=== PATIENT | female | born 1940 | race Caucasian/White ===

== ENCOUNTER 2021-08-17 11:03 | Emergency (ER) | payer MEDICARE, OTHER, SELFPAY ==
[2021-08-17] VITALS (24 sets, daily range): BP systolic 128–168; BP diastolic 64–74; PULSE 64–98; RESP 16–28; TEMP 35.9; O2SAT 92–98; BMI 21.7
--- NOTE | 2021-08-17 11:25 | PC.NURSE ---
Pt daughter arrived and reports in March/April pt had frequent falls, in April she had a suspected stroke and MRI showed an area indicating epilepsy. Pt is on but on had RUQ pain with N/V which lead into Wednesday and she missed her Wednesday AM dose. On Wednesday, daughter witnessed pt have an episode where she went momentarily unresponsive then it happened again this morning when they were taking pt out of the bath.
--- NOTE | 2021-08-17 11:46 | ED.GENADULT ---
HPI - General Adult <Majo Sainz MD - Last Filed: 08/18/21 07:06> General Chief complaint: Weakness Stated complaint: Weakness Time Seen by Provider: 08/17/21 11:39 Source: patient and EMS Mode of arrival: EMS Limitations: no limitations History of Present Illness HPI narrative: Woman with a history of stroke and seizure. Apparently her symptoms started in April with increasing falls eventually 1 of the fellows led to a CT scan which led to a diagnosis of a stroke and follow-up suggested that she likely was having seizures from a source close to the area of infarct. She was started on Keppra 250 mg b.i.d. and been doing fairly well. Three days ago she was complaining of some nausea and missed a dose of her Keppra because of that. Her primary care provider called in [facility] that is been helping however on Wednesday her daughter (a retired ER nurse providing full-time care for her mother) describes an episode of ?stiffness, a blank stare and decreased responsiveness? that lasted for only a few moments. Today after getting out of the shower her daughter noticed a similar episode that was much longer in duration with some perioral cyanosis appreciated and a longer postictal period. The daughter notes that her mom has not been eating well for the past 3 days and it is difficult to tell if that is because of nausea or pain. Her mom seems to indicate that she is having some right upper quadrant pain for the last 3 days as well. Other daughter does not note any complaints recently of flank pain, dysuria, frequency, constipation or diarrhea. Her mom is not complaining of headache and main complaint is overall weakness Related Data Home Medications Medication Instructions Recorded Confirmed aspirin 81 mg tablet 81 mg PO DAILY 08/17/21 08/17/21 calcitonin (salmon) 200 1 spray INTRANASAL DAILY 08/17/21 08/17/21 unit/actuation nasal spray conjugated estrogens 0.625 mg 0.625 mg PO DAILY 08/17/21 08/17/21 tablet (Premarin) folic acid 1 mg tablet 1 mg PO QPM 08/17/21 08/17/21 levetiracetam 250 mg tablet 250 mg PO BID 08/17/21 08/17/21 lisinopril 2.5 mg tablet 2.5 mg PO QPM 08/17/21 08/17/21 verapamil 240 mg tablet,extended 240 mg PO DAILY 08/17/21 08/17/21 release Allergies Allergy/AdvReac Type Severity Reaction Status Date / Time Penicillins Allergy Verified 08/17/21 11:22 Review of Systems <Majo Sainz MD - Last Filed: 08/18/21 07:06> Review of Systems Narrative: Remainder of complete review of systems is otherwise unremarkable except for that included in the HPI. Patient History <Majo Sainz MD - Last Filed: 08/18/21 07:06> Medical History (Updated 08/17/21 @ 13:53 by Majo Sainz MD) CVA (cerebral vascular accident) 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 (CVA) Social History Smoking Status: Never smoker Smoking Status: Never smoker Substance Use Type: does not use Exam <Majo Sainz MD - Last Filed: 08/18/21 07:06> Narrative Exam Narrative: General: Frail appearing but in no acute distress. To minimal participation in history taking HEENT: Dry mucous membranes, normal sclera with reactive pupils, Neck: No JVD, supple Respiratory: Lungs are clear to auscultation, no wheezing no rales no rhonchi. Full and symmetrical air movement Cardiac: Regular rate and rhythm no murmurs no bruits Abdomen: Soft, diffuse tenderness including right upper quadrant right flank left lower quadrant. No rebound or guarding. No suprapubic tenderness Skin: Warm and dry, no rashes Neurologic: Globally weak but Grossly neurologically intact with no obvious asymmetries or abnormalities Extremities: No trauma, no lower extremity edema, well perfused Psych: Cooperative, rather flat affect, mild dementia Initial Vital Signs Initial Vital Signs: Vital Signs Temperature 96.6 F L 08/17/21 11:17 Pulse Rate 81 08/17/21 11:17 Respiratory Rate 18 08/17/21 11:17 Blood Pressure 134/72 08/17/21 11:17 Pulse Oximetry 96 08/17/21 11:17 Course <Majo Sainz MD - Last Filed: 08/18/21 07:06> Orders Ordered: Discontinued Medications Levetiracetam 1,000 mg/ Sodium (Chloride) 110 mls @ 440 mls/hr IV NOW ONE Stop: 08/17/21 12:32 Last Infusion: 08/17/21 13:33 Dose: 0 mls/hr Documented by: Admin: 08/17/21 13:16 Dose: 440 mls/hr Documented by: ATAYLOR Sodium Chloride (Normal Saline 0.9%) 1,000 mls @ 1,000 mls/hr IV BOLUS ONE Stop: 08/17/21 13:36 Last Infusion: 08/17/21 15:22 Dose: 0 mls/hr Documented by: Admin: 08/17/21 13:17 Dose: 1,000 mls/hr Documented by: ATAYLOR Piperacillin Sod/Tazobactam (Sod 4.5 gm/ Sodium Chloride) 100 mls @ 200 mls/hr IV NOW ONE Stop: 08/17/21 14:14 Last Infusion: 08/17/21 16:00 Dose: 0 mls/hr Documented by: Admin: 08/17/21 15:22 Dose: 200 mls/hr Documented by: ATAYLOR Sodium Chloride (Normal Saline 0.9%) 1,000 mls @ 150 mls/hr IV CONT RAYMUNDO Last Infusion: 08/17/21 21:43 Dose: 0 mls/hr Documented by: Admin: 08/17/21 15:22 Dose: 150 mls/hr Documented by: ATAYLOR Piperacillin Sod/Tazobactam (Sod 3.375 gm/ Sodium Chloride) 100 mls @ 25 mls/hr IV [facility] Ondansetron HCl (Ondansetron 4 Mg/2 Ml Inj) 4 mg IV NOW ONE Stop: 08/17/21 12:38 Last Admin: 08/17/21 13:18 Dose: 4 mg Documented by: ATAYLOR Vital Signs Vital signs: Vital Signs - 8 hr 08/17/21 20:00 08/17/21 20:30 08/17/21 21:00 Pulse Rate 79 69 80 Respiratory Rate 24 17 22 Blood Pressure 150/69 H 156/72 H Pulse Oximetry 96 96 92 08/17/21 21:30 Pulse Rate 73 Respiratory Rate 16 Blood Pressure 168/74 H Pulse Oximetry 95 Medical Decision Making <Majo Sainz MD - Last Filed: 08/18/21 07:06> Lab Data Result diagrams: 08/17/21 11:20 08/17/21 11:20 Labs: Lab Results 08/17/21 08/17/21 08/17/21 Range/Units 11:20 11:20 11:51 WBC 15.4 H (4.5-11.0) X10^3/uL RBC 4.80 (4.0-5.2) X10^6/uL Hgb 14.1 (12.0-16.0) g/dL Hct 42.1 (36-46) % MCV 87.8 (80-100) fL MCH 29.4 (26-34) PG MCHC 33.5 (30-36) % RDW 15.1 H (11.6-14.8) % Plt Count 287 (150-400) X10^3/uL Neut % (Auto) 84.9 H (50-75) % Lymph % (Auto) 7.7 L (25-40) % Stafford % (Auto) 6.2 (3-14) % Eos % (Auto) 0.7 L (2-4) % Baso % (Auto) 0.5 (0-2) % Neut # (Auto) 88531 H (9922-2041) /uL Lymph # (Auto) 1200 (1553-1044) /uL Stafford # (Auto) 1000 H (0-900) /uL Eos # (Auto) 100 (0-450) /uL Baso # (Auto) 100 (0-100) /uL Sodium 136 L (137-145) mmol/L Potassium 3.8 (3.4-5.1) mmol/L Chloride 99 (98-107) mmol/L Carbon Dioxide 28 (22-32) mmol/L BUN 19 H (7-17) mg/dL Creatinine 1.22 H (0.52-1.04) mg/dL Estimated GFR 42.4 L (>60) mL/min BUN/Creatinine Ratio 15.6 (6-22) Glucose 117 H (80-110) mg/dL Calcium 9.6 (8.4-10.2) mg/dL Magnesium 1.8 (1.6-2.3) mg/dL Total Bilirubin 1.9 H (0.2-1.3) mg/dL AST 41 H (14-36) IU/L ALT 32 (<35) IU/L Alkaline Phosphatase 109 (38-126) U/L Troponin I < 0.012 (0.01-0.034) ng/mL Total Protein 7.6 (6.3-8.2) g/dL Albumin 4.0 (3.5-5.0) g/dL Globulin 3.6 (1.7-4.1) g/dL Albumin/Globulin Ratio 1.1 (1.0-2.8) Lipase 23 (23-300) U/L Urine Color Urine Appearance Urine pH (4.5-8.0) Ur Specific [place] (1.000-1.035) Urine Protein (Negative) Urine Glucose (UA) (Negative) g/dL Urine Ketones (NEGATIVE) Urine Occult Blood (Negative) Urine Nitrate (Negative) Urine Bilirubin (NEGATIVE) Urine Urobilinogen (0.2) E.U./dL Ur Leukocyte Esterase (NEGATIVE) Urine RBC (0-5/HPF) Urine WBC (0-5/HPF) Ur Squamous Epith Cells (0-5/HPF) Urine Bacteria (None) Hyaline Casts (None) Ur Culture Indicated? SARS-CoV-2 (PCR) Negative (Negative) 08/17/21 Range/Units 14:07 WBC (4.5-11.0) X10^3/uL RBC (4.0-5.2) X10^6/uL Hgb (12.0-16.0) g/dL Hct (36-46) % MCV (80-100) fL MCH (26-34) PG MCHC (30-36) % RDW (11.6-14.8) % Plt Count (150-400) X10^3/uL Neut % (Auto) (50-75) % Lymph % (Auto) (25-40) % Stafford % (Auto) (3-14) % Eos % (Auto) (2-4) % Baso % (Auto) (0-2) % Neut # (Auto) (0511-1080) /uL Lymph # (Auto) (8410-8513) /uL Stafford # (Auto) (0-900) /uL Eos # (Auto) (0-450) /uL Baso # (Auto) (0-100) /uL Sodium (137-145) mmol/L Potassium (3.4-5.1) mmol/L Chloride (98-107) mmol/L Carbon Dioxide (22-32) mmol/L BUN (7-17) mg/dL Creatinine (0.52-1.04) mg/dL Estimated GFR (>60) mL/min BUN/Creatinine Ratio (6-22) Glucose (80-110) mg/dL Calcium (8.4-10.2) mg/dL Magnesium (1.6-2.3) mg/dL Total Bilirubin (0.2-1.3) mg/dL AST (14-36) IU/L ALT (<35) IU/L Alkaline Phosphatase (38-126) U/L Troponin I (0.01-0.034) ng/mL Total Protein (6.3-8.2) g/dL Albumin (3.5-5.0) g/dL Globulin (1.7-4.1) g/dL Albumin/Globulin Ratio (1.0-2.8) Lipase (23-300) U/L Urine Color ... Urine Appearance Clear Urine pH 5.0 (4.5-8.0) Ur Specific [place] 1.010 (1.000-1.035) Urine Protein 1+ H (Negative) Urine Glucose (UA) Trace H (Negative) g/dL Urine Ketones Trace H (NEGATIVE) Urine Occult Blood Negative (Negative) Urine Nitrate Negative (Negative) Urine Bilirubin Negative (NEGATIVE) Urine Urobilinogen 2.0 H (0.2) E.U./dL Ur Leukocyte Esterase Negative (NEGATIVE) Urine RBC None seen (0-5/HPF) Urine WBC 1-5/hpf (0-5/HPF) Ur Squamous Epith Cells 1-5 /hpf (0-5/HPF) Urine Bacteria Occasional (0-1) (None) Hyaline Casts 1-5/lpf (None) Ur Culture Indicated? Cult not indicated SARS-CoV-2 (PCR) (Negative) Imaging Data Chest x-ray: Radiologist's Impression: FINDINGS:? ? Surgical changes and devices:? None.? ? Lungs and pleura:? Lungs are clear without acute consolidation.? There is mild blunting of the right costophrenic angle suggestive of pleural thickening, versus a small effusion.? No left pleural effusion.? No pneumothorax. ? Mediastinum:? There is convex right paratracheal soft tissue fullness in the superior mediastinum.? Heart size is normal.? ? Bones and chest wall:? No suspicious bony lesions.? Overlying soft tissues appear unremarkable.? ? IMPRESSION:? ? 1. No acute consolidation. ? 2. Mild pleural thickening in the right lateral costophrenic angle versus a small effusion. ? 3. Convex right paratracheal soft tissue fullness in the superior mediastinum.? Although the findings may reflect vascular structures, lymphadenopathy or a mass cannot be excluded.? Further evaluation may be obtained with CT if clinically indicated.? ? ? Dictated by: Joseph Grayson M.D. on 08/17/2021 at 11:27? ?? CT scan - abdomen/pelvis: My Impression: Per daughter: compression fractures are known Radiologist's Impression: FINDINGS:? Image quality:? Excellent.? ? Lung bases:? There is atelectasis and scarring in the lung bases.? ? Heart:? Heart is normal in size.? There is prominent mitral annular calcifications.? Extensive coronary arterial vascular calcification are also noted.? The visualized ascending aorta appears ectatic, measuring up to 3.9 cm.? There is a small hiatal hernia. ? ? ? ABDOMEN: Liver:? Unremarkable.? ? Gallbladder:? There is distention of the gallbladder with mild wall thickening and mild pericholecystic fat stranding.? There is suggestion a small stone in the region of the gallbladder neck measuring approximately 0.9 cm. Biliary ducts:? There is mild biliary ductal dilatation, with the common bile duct measuring up to 1.1 cm.? No calcified common duct stones identified.? No discrete ampullary or pancreatic mass. Pancreas:? There is mild atrophy of the pancreas.? No pancreatic duct dilatation.? ? Spleen:? Unremarkable.? ? Adrenal Glands:? Unremarkable.? ? Kidneys and Ureters:? Kidneys demonstrate no hydronephrosis.? A small oval hypodensity is demonstrated in the left kidney which is too small to characterize but likely represents a cyst. ? Stomach and Bowel:? Stomach, small bowel loops, and colon are normal in caliber and wall thickness. Peritoneum:? No abnormal intraperitoneal fluid.? No free air.? ? Ventral Wall: ? No hernia.? Abdominal Nodes:? No retroperitoneal or mesenteric adenopathy by size criteria.? Vessels:? Aorta and inferior vena cava are normal in size.? ? PELVIS: Pelvic Organs:? The uterus is surgically absent. Bladder:? Unremarkable.? ? Pelvic Nodes: No enlarged lymph nodes.? Miscellaneous: No inguinal hernias are seen. ? ? ? Bones:? There is a moderate superior endplate compression fracture of the L1 vertebral body of indeterminate acuity.? There is loss of height of up to approximately 50%.? There is a small posteriorly displaced fragment along the superior endplate, measuring up to 0.7 cm.? There is associated moderate bony spinal canal narrowing.? A mild compression deformity is also demonstrated along the superior endplate of L2 with up to 30% loss of height.? No retropulsed bony fragments.? There are disc bulges throughout the lumbar spine.? Ligament flavum hypertrophy and calcification are also demonstrated at L2-L3 and L3-L4.? Findings contribute to severe spinal canal narrowing at L3-L4 and moderate narrowing at L2-L3. ? ? IMPRESSION:? ? 1.? Distention of the gallbladder with mild wall thickening, pericholecystic fat stranding, and suspected gallstones in the gallbladder neck.? Findings likely reflect acute cholecystitis and correlation is recommended clinically. ? 2. Mild biliary ductal dilatation without a calcified common duct stone or obstructing mass visualized.? Recommend correlation with laboratory values and if indicated initial further evaluation may be obtained with ultrasound. ? 3. Compression deformities of the L1 and L2 vertebral bodies of indeterminate acuity with up to 50% loss of height at L1.? There is a small posterior displaced fragment along the superior endplate of L1 with associated moderate spinal canal narrowing. ? 4. Multilevel degenerative changes within the lumbar spine with severe spinal canal narrowing at L3-L4.? ? ? Dictated by: Joseph Grayson M.D. on 08/17/2021 at 12:19? ?? CT scan - head: Radiologist's Impression: FINDINGS:? Image quality:? Excellent.? ? CSF spaces:? Basal cisterns are patent.? No extra-axial fluid collections.? There is moderate cerebral volume loss, with resultant ventricular and sulcal prominence.? ? Brain:? No intracranial hemorrhage, mass, or mass effect.? Small areas of cortical encephalomalacia are demonstrated within the left frontal and parietal lobes consistent with sequelae of prior infarcts.? There are subcortical, periventricular and deep white matter hypodensities consistent with moderate to severe chronic small vessel ischemic changes.? A small focal hypodensity within the right thalamus is consistent with sequelae of a prior small lacunar infarct indeterminate acuity.? There is intracranial internal carotid artery atherosclerosis.? ? Skull and face:? Calvarium and visualized facial bones appear intact, without suspicious lesions.? ? Sinuses:? Visualized sinuses and mastoids are clear.? ? IMPRESSION:? ? 1. No acute intracranial abnormality. ? 2. Small areas of cortical encephalomalacia in the left frontal and parietal lobes consistent with sequelae of prior infarcts. ? 3. Moderate to severe chronic white matter small vessel ischemic changes and moderate cerebral volume loss.? ? ? Dictated by: Joseph Grayson M.D. on 08/17/2021 at 12:16? ?? ECG Data Interpretation: Sinus rhythm at a rate of 66 Left axis deviation No acute ischemic changes MDM Narrative Medical decision making narrative: 81-year-old woman with mild dementia post stroke with seizures as a consequence of her stroke presents with 3 days nausea vomiting decreased eating and her daughter is concerned that she is having an increase in seizures. She has only missed 1 total dose of her Keppra. Patient is DNR/DNI however would like appropriate intervention up to that point. No evidence of recurrent stroke. It does look like she has acute cholecystitis with gallstone in the bladder neck. Mild biliary ductal dilatation without calcified common duct stone or obstructing mass visualized. Will review care with surgeon. 2pm discussed with Dr. Blair, general surgeon. Given her advanced age, recent stroke, seizures, her operative risk is significant. She would likely be better served with percutaneous cholecystostomy tube and medical management of her disease. Will begin looking for hospital bed availability at a facility that has interventional radiology available. In the meantime will begin Zosyn as well as gentle fluid rehydration treating her pain and her nausea. 3pm currently on waiting lists with [facility], [facility], [place], [facility] and [place]. [facility] is not currently excepting patient's from non critical access hospitals. We currently have another patient on a waiting list for the [facility] with earliest possible bed placement being tomorrow. [facility] is closed to admissions with the exception of a STEMI or strokes. 4:30 Reviewed with . Will page providers, no immediate beds available. [address], [facility]. Will accept at [facility] in [place], expected transfer this evening. Will update her daughter when bed is confirmed. Discharge Plan Departure Patient Disposition: [facility] Clinical Impression: Dehydration, Cholecystitis Prescriptions: No Action verapamil 240 mg tablet extended release 240 mg PO DAILY 0RF Adult Aspirin 81 mg Tablet 81 mg PO DAILY 0RF levetiracetam 250 mg tablet 250 mg PO BID 0RF calcitonin (salmon) 200 unit/actuation spray,non-aerosol 1 spray intranasal DAILY 0RF Premarin 0.625 mg Tablet 0.625 mg PO DAILY 0RF folic acid 1 mg tablet 1 mg PO QPM 0RF lisinopril 2.5 mg tablet 2.5 mg PO QPM 0RF Rx Instructions: sliding dose: less than 100 = 0; 100-120 = 2.5mg, greater than 120 =50mg Referrals: Nasreen Najera DO [Primary Care Provider] -
--- NOTE | 2021-08-17 11:47 | DI.RAD.S_ITS ---
PROCEDURE: XR CHEST 1V INDICATIONS: weakness TECHNIQUE: One view of the chest was acquired. COMPARISON: None. FINDINGS: Surgical changes and devices: None. Lungs and pleura: Lungs are clear without acute consolidation. There is mild blunting of the right costophrenic angle suggestive of pleural thickening, versus a small effusion. No left pleural effusion. No pneumothorax. Mediastinum: There is convex right paratracheal soft tissue fullness in the superior mediastinum. Heart size is normal. Bones and chest wall: No suspicious bony lesions. Overlying soft tissues appear unremarkable. IMPRESSION: 1. No acute consolidation. 2. Mild pleural thickening in the right lateral costophrenic angle versus a small effusion. 3. Convex right paratracheal soft tissue fullness in the superior mediastinum. Although the findings may reflect vascular structures, lymphadenopathy or a mass cannot be excluded. Further evaluation may be obtained with CT if clinically indicated. Dictated by: Joseph Grayson M.D. on 08/17/2021 at 11:27 Approved by: Joseph Grayson M.D. on 08/17/2021 at 11:33
[2021-08-17 12:00] LABS: Alanine Aminotransferase 32 IU/L (<35); Albumin Globulin Ratio 1.1 (1.0-2.8); Alkaline Phosphatase 109 U/L (38-126); Aspartate Aminotransferase 41 IU/L (14-36); BUN Creatinine Ratio 15.6 (6-22); Bilirubin Total 1.9 mg/dL (0.2-1.3); Blood Urea Nitrogen 19 mg/dL (7-17); Calcium 9.6 mg/dL (8.4-10.2); Carbon Dioxide 28 mmol/L (22-32); Chloride 99 mmol/L (98-107); Estimated Glomerular Filt Rate 42.4 mL/min (>60); Globulin 3.6 g/dL (1.7-4.1); Glucose 117 mg/dL (80-110); HEMOLYSIS 77 (0-50); Lipase 23 U/L (23-300); Magnesium 1.8 mg/dL (1.6-2.3); Potassium 3.8 mmol/L (3.4-5.1); Sodium 136 mmol/L (137-145); Total Protein 7.6 g/dL (6.3-8.2)
[2021-08-17 12:01] LABS: Add Manual Diff / Slide Review NO; Basophils Absolute Auto 100 /uL (0-100); Basophils Percent Auto 0.5 % (0-2); Eosinophils Absolute Auto 100 /uL (0-450); Eosinophils Percent Auto 0.7 % (2-4); Hematocrit 42.1 % (36-46); Hemoglobin 14.1 g/dL (12.0-16.0); Lymphocytes Absolute Auto 1200 /uL (1100-4500); Lymphocytes Percent Auto 7.7 % (25-40); Mean Corpuscular HGB Conc 33.5 % (30-36); Mean Corpuscular Hemoglobin 29.4 PG (26-34); Mean Corpuscular Volume 87.8 fL (80-100); Monocytes Absolute Auto 1000 /uL (0-900); Monocytes Percent Auto 6.2 % (3-14); Neutrophils Absolute Auto 13100 /uL (1500-7000); Neutrophils Percent Auto 84.9 % (50-75); Platelet Count 287 X10^3/uL (150-400); Red Cell Distribution Width 15.1 % (11.6-14.8); White Blood Cell Count 15.4 X10^3/uL (4.5-11.0)
[2021-08-17 12:11] LABS: Troponin I < 0.012 ng/mL (0.01-0.034)
[2021-08-17 12:18] LABS: COVID19 -Nasal RAPID Negative (Negative)
--- NOTE | 2021-08-17 12:31 | DI.CT.S_ITS ---
PROCEDURE: CT HEAD/BRAIN WO CON INDICATIONS: increased seizures, h/o CVA with scarring as site of seizure TECHNIQUE: Noncontrast 4.5 mm thick angled axial sections acquired from the foramen magnum to the vertex, with coronal and sagittal reformats. For radiation dose reduction, the following was used: automated exposure control, adjustment of mA and/or kV according to patient size. COMPARISON: None. FINDINGS: Image quality: Excellent. CSF spaces: Basal cisterns are patent. No extra-axial fluid collections. There is moderate cerebral volume loss, with resultant ventricular and sulcal prominence. Brain: No intracranial hemorrhage, mass, or mass effect. Small areas of cortical encephalomalacia are demonstrated within the left frontal and parietal lobes consistent with sequelae of prior infarcts. There are subcortical, periventricular and deep white matter hypodensities consistent with moderate to severe chronic small vessel ischemic changes. A small focal hypodensity within the right thalamus is consistent with sequelae of a prior small lacunar infarct indeterminate acuity. There is intracranial internal carotid artery atherosclerosis. Skull and face: Calvarium and visualized facial bones appear intact, without suspicious lesions. Sinuses: Visualized sinuses and mastoids are clear. IMPRESSION: 1. No acute intracranial abnormality. 2. Small areas of cortical encephalomalacia in the left frontal and parietal lobes consistent with sequelae of prior infarcts. 3. Moderate to severe chronic white matter small vessel ischemic changes and moderate cerebral volume loss. Dictated by: Joseph Grayson M.D. on 08/17/2021 at 12:16 Approved by: Joseph Grayson M.D. on 08/17/2021 at 12:19
--- NOTE | 2021-08-17 12:31 | DI.CT.S_ITS ---
PROCEDURE: CT ABDOMEN PELVIS W CON INDICATIONS: diffuse abdominal pain, weakness, leukocytosis TECHNIQUE: After the administration of oral and IV contrast, axial sections were acquired from the lung bases to the pubic symphysis. Coronal and sagittal reformats were performed. For radiation dose reduction, the following was used: automated exposure control, adjustment of mA and/or kV according to patient size. COMPARISON: None. FINDINGS: Image quality: Excellent. Lung bases: There is atelectasis and scarring in the lung bases. Heart: Heart is normal in size. There is prominent mitral annular calcifications. Extensive coronary arterial vascular calcification are also noted. The visualized ascending aorta appears ectatic, measuring up to 3.9 cm. There is a small hiatal hernia. ABDOMEN: Liver: Unremarkable. Gallbladder: There is distention of the gallbladder with mild wall thickening and mild pericholecystic fat stranding. There is suggestion a small stone in the region of the gallbladder neck measuring approximately 0.9 cm. Biliary ducts: There is mild biliary ductal dilatation, with the common bile duct measuring up to 1.1 cm. No calcified common duct stones identified. No discrete ampullary or pancreatic mass. Pancreas: There is mild atrophy of the pancreas. No pancreatic duct dilatation. Spleen: Unremarkable. Adrenal Glands: Unremarkable. Kidneys and Ureters: Kidneys demonstrate no hydronephrosis. A small oval hypodensity is demonstrated in the left kidney which is too small to characterize but likely represents a cyst. Stomach and Bowel: Stomach, small bowel loops, and colon are normal in caliber and wall thickness. Peritoneum: No abnormal intraperitoneal fluid. No free air. Ventral Wall: No hernia. Abdominal Nodes: No retroperitoneal or mesenteric adenopathy by size criteria. Vessels: Aorta and inferior vena cava are normal in size. PELVIS: Pelvic Organs: The uterus is surgically absent. Bladder: Unremarkable. Pelvic Nodes: No enlarged lymph nodes. Miscellaneous: No inguinal hernias are seen. Bones: There is a moderate superior endplate compression fracture of the L1 vertebral body of indeterminate acuity. There is loss of height of up to approximately 50%. There is a small posteriorly displaced fragment along the superior endplate, measuring up to 0.7 cm. There is associated moderate bony spinal canal narrowing. A mild compression deformity is also demonstrated along the superior endplate of L2 with up to 30% loss of height. No retropulsed bony fragments. There are disc bulges throughout the lumbar spine. Ligament flavum hypertrophy and calcification are also demonstrated at L2-L3 and L3-L4. Findings contribute to severe spinal canal narrowing at L3-L4 and moderate narrowing at L2-L3. IMPRESSION: 1. Distention of the gallbladder with mild wall thickening, pericholecystic fat stranding, and suspected gallstones in the gallbladder neck. Findings likely reflect acute cholecystitis and correlation is recommended clinically. 2. Mild biliary ductal dilatation without a calcified common duct stone or obstructing mass visualized. Recommend correlation with laboratory values and if indicated initial further evaluation may be obtained with ultrasound. 3. Compression deformities of the L1 and L2 vertebral bodies of indeterminate acuity with up to 50% loss of height at L1. There is a small posterior displaced fragment along the superior endplate of L1 with associated moderate spinal canal narrowing. 4. Multilevel degenerative changes within the lumbar spine with severe spinal canal narrowing at L3-L4. Dictated by: Joseph Grayson M.D. on 08/17/2021 at 12:19 Approved by: Joseph Grayson M.D. on 08/17/2021 at 12:28
[2021-08-17] MEDS: levETIRAcetam 1,000 MG in SODIUM CHLORIDE 0.9% 100 ML 440 ML IV (13:16)
[2021-08-17] MEDS: SODIUM CHLORIDE 0.9% 1,000 ML 1000 ML IV (13:17)
[2021-08-17] MEDS: ONDANSETRON 4 MG/2 ML INJ IV (13:18)
[2021-08-17 14:21] LABS: Appearance Urine UA CLEAR; Bilirubin Urine UA NEGATIVE (NEGATIVE); Glucose Urine UA TRACE g/dL (Negative); Ketones Urine UA TRACE (NEGATIVE); Leukocyte Esterase Urine UA NEGATIVE (NEGATIVE); Nitrite Urine UA NEGATIVE (Negative); Occult Blood Urine UA NEGATIVE (Negative); Protein Urine UA 1+ (Negative)
[2021-08-17 14:35] LABS: RBC Urine None Seen (0-5/HPF); Squamous Epithelial Cell Urine 1-5 /HPF (0-5/HPF); WBC Urine 1-5/HPF (0-5/HPF)
[2021-08-17 14:36] LABS: Bacteria Urine Occasional (0-1); Culture Indicated Urine Cult Not Indicated; Hyaline Casts Urine 1-5/LPF
[2021-08-17] MEDS: PIPERACILLIN/TAZO 4.5 GM in SODIUM CHLORIDE 0.9% 100 ML 200 ML IV (15:22)
[2021-08-17] MEDS: SODIUM CHLORIDE 0.9% 1,000 ML 150 ML IV (15:22)
--- NOTE | 2021-08-17 20:51 | PC.NURSE ---
Called daughter, Kayla, and updated her on plan for transfer.
[2021-08-20 23:54] LABS: Levetiracetam Keppra 14.5 ug/mL (10.0-40.0)
== END 2021-08-17 21:50 | disposition short-term general hospital (02) ==
PROVIDERS: Emergency Provider Emergency Medicine; PCP Internal Medicine
DX: K81.9 Cholecystitis, unspecified (principal); E86.0 Dehydration; I69.398 Other sequelae of cerebral infarction; R56.9 Unspecified convulsions; R03.0 Elevated blood-pressure reading, without diagnosis of hypertension; Z20.822 Contact with and (suspected) exposure to COVID-19
CPT/HCPCS: 36415; 51701; 70450; 71045; 74177; 80053; 80177; 81001; 83690; 83735; 84484; 85025; 87635; 93005; 93010; 96361; 96365; 96367; 96375; 99284; C9803; J1953; J2405; J2543; Q9967

== ENCOUNTER 2021-10-26 10:00 | Observation (INO) | payer MEDICARE, OTHER, SELFPAY ==
[2021-10-26] VITALS (18 sets, daily range): BP systolic 142–184; BP diastolic 83–112; PULSE 78–102; RESP 11–27; TEMP 36.3–37.7; O2SAT 88–100; BMI 22.7; BMI 22.6
--- NOTE | 2021-10-26 11:18 | ED_ITS ---
HPI - Abdominal Pain General Chief Complaint: Abdominal Pain Stated Complaint: Issues with galbladder Time Seen by Provider: 10/26/21 11:18 Source: family Mode of arrival: Wheelchair History of Present Illness HPI narrative: Patient is a 81-year-old female history of stroke, seizures she has known gallbladder issues. She was seen evaluated here 08/17/2021 found to have cholecystitis but was having problems with seizure at that time she was transferred to [facility], where she was managed medically. Daughter states that she needs to have a cholecystectomy. She had any ERCP at [facility] on 09/19/2021 were 3 large stones were extracted from the common bile. Daughter states that there is a cycle with the gallbladder stating that she has cholelithiasis she has had acute cholecystitis it makes her extremely nauseous cause her to vomit due to the ongoing nausea she is unable to eat occasionally unable to take her seizure medications. She has actually had significant decreased oral intake over the past few weeks hyper venting surgeons from removing her gallbladder. There was also concern how she would do under anesthesia however daughter states during the ERCP she was under anesthesia and did well. Daughter is concerned that the gallbladder is not removed she will continue to lose weight and possibly have seizures because she is not able to keep or take down her antiseizure medication. This morning patient got out of bed earlier than normal and daughter found vomit all over her room at which point she brought her to the emergency department for evaluation. Patient was with daughter who is a retired ER nurse and is her primary caregiver Related Data Home Medications Medication Instructions Recorded Confirmed aspirin 81 mg tablet 81 mg PO DAILY 08/17/21 10/26/21 calcitonin (salmon) 200 1 spray INTRANASAL DAILY 08/17/21 10/26/21 unit/actuation nasal spray levetiracetam 250 mg tablet 500 mg PO BID 08/17/21 10/26/21 lisinopril 2.5 mg tablet 2.5 mg PO QPM 08/17/21 10/26/21 verapamil 240 mg tablet,extended 240 mg PO DAILY 08/17/21 10/26/21 release albuterol sulfate 90 mcg/actuation 2 puff INHALATION DAILY 10/26/21 10/26/21 aerosol inhaler dronabinol 2.5 mg capsule 2.5 mg PO BID 10/26/21 10/26/21 lidocaine 5 % topical patch 1 patch TRANSDERMAL BID PRN 10/26/21 10/26/21 ondansetron 4 mg disintegrating 4 mg TRANSLINGUAL Q8H PRN 10/26/21 10/26/21 tablet Allergies Allergy/AdvReac Type Severity Reaction Status Date / Time Penicillins Allergy Verified 08/17/21 11:22 Review of Systems Constitutional Constitutional: Reports poor appetite and Reports weakness Gastrointestinal Gastrointestinal: Reports as per HPI, Reports abdominal pain, Reports nausea and Reports vomiting Neurologic Neurologic: Reports weakness Patient History Medical History (Updated 10/26/21 @ 16:12 by Arian Aggarwal DO) Asthma CVA (cerebral vascular accident) Essential hypertension Paroxysmal atrial fibrillation 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 (CVA) Vascular dementia Surgical History (Updated 10/26/21 @ 16:11 by Arian Aggarwal DO) H/O: hysterectomy History of bilateral knee replacement History of ERCP Social History household members: children Smoking Status: Never smoker alcohol intake: never Smoking Status: Never smoker Substance Use Type: does not use Exam Initial Vital Signs Initial Vital Signs: Vital Signs Temperature 97.8 F 10/26/21 10:15 Pulse Rate 83 10/26/21 10:15 Respiratory Rate 14 10/26/21 10:15 Blood Pressure 142/95 H 10/26/21 10:15 Pulse Oximetry 91 10/26/21 10:15 GENERAL: Very weak thin elderly 81-year-old female HEENT: Head atraumatic,EOMI, pupils reactive, face symmetric, dry mucous membranes CARDIOVASCULAR: Regular rate and rhythm without murmurs, rubs or gallops. RESPIRATORY: Breath sounds equal bilaterally, no wheezes rales or rhonchi. ABDOMEN: Soft, nontender. Normoactive bowel sounds all 4 quadrants. No guarding or rebound. EXTREMITIES: Normal range of motion, no clubbing or edema. Neurovascularly intact NEUROLOGICAL: Alert moving all extremities, unintelligible words-baseline per daughter SKIN: Warm, dry, no laceration, no petechiae, no rashes or lesions. Course Orders Ordered: ED Orders 10/26/21 10:32 EKG-12 Lead Stat 10/26/21 11:20 Complete Blood Count AUTO DIFF Stat Comprehensive Metabolic Panel Stat Levetiracetam Keppra Stat Lipase Stat 10/26/21 11:22 US abdomen limited Stat 10/26/21 12:50 Urine Microscopic Stat 10/26/21 13:59 COVID19 -Nasal swab/Pre-Proc Stat Acetaminophen (Acetaminophen 325 Mg Tablet) 650 mg PO Q6HR PRN PRN Reason: Fever/Mild Pain (1-3) Sodium Chloride (Normal Saline 0.9%) 1,000 mls @ 75 mls/hr IV CONT RAYMUNDO Levetiracetam 500 mg/ Sodium (Chloride) 105 mls @ 420 mls/hr IV Q12H RAYMUNDO Piperacillin Sod/Tazobactam (Sod 3.375 gm/ Sodium Chloride) 100 mls @ 25 mls/hr IV Q8H RAYMUNDO Morphine Sulfate (Morphine 2 Mg/Ml Inj) 2 mg IV Q4HR PRN PRN Reason: Pain, Moderate (4-6) Naloxone HCl (Naloxone 0.4 Mg/Ml Vial) 0.2 mg IV Q2MIN PRN PRN Reason: Opiate Reversal Ondansetron HCl (Ondansetron 4 Mg/2 Ml Inj) 4 mg IV Q4HR PRN PRN Reason: Nausea And Vomiting Verapamil HCl (Verapamil Sr 120 Mg Tablet) 240 mg PO DAILY RAYMUNDO Discontinued Medications Sodium Chloride (Normal Saline 0.9%) 1,000 mls @ 1,000 mls/hr IV BOLUS ONE Stop: 10/26/21 12:23 Last Infusion: 10/26/21 14:49 Dose: 0 mls/hr Documented by: Admin: 10/26/21 11:52 Dose: 1,000 mls/hr Documented by: SHABBIR Levetiracetam 500 mg/ Sodium (Chloride) 105 mls @ 420 mls/hr IV NOW ONE Stop: 10/26/21 13:11 Last Infusion: 10/26/21 14:50 Dose: 0 mls/hr Documented by: Admin: 10/26/21 13:34 Dose: 420 mls/hr Documented by: PORSCHE Morphine Sulfate (Morphine 2 Mg/Ml Inj) 2 mg IV NOW ONE Stop: 10/26/21 11:27 Last Admin: 10/26/21 11:52 Dose: 2 mg Documented by: SHABBIR Ondansetron HCl (Ondansetron 4 Mg/2 Ml Inj) 4 mg IV NOW ONE Stop: 10/26/21 11:27 Last Admin: 10/26/21 11:52 Dose: 4 mg Documented by: SHABBIR Vital Signs Vital signs: Vital Signs - 8 hr 10/26/21 10:15 10/26/21 10:32 10/26/21 11:00 Temperature 97.8 F Pulse Rate 83 80 92 H Respiratory Rate 14 25 H 16 Blood Pressure 142/95 H 157/94 H Pulse Oximetry 91 92 92 10/26/21 11:30 10/26/21 11:31 10/26/21 12:00 Temperature Pulse Rate 78 80 90 Respiratory Rate 22 23 22 Blood Pressure 184/86 H 170/90 H Pulse Oximetry 92 92 91 10/26/21 12:30 10/26/21 13:00 10/26/21 13:30 Temperature Pulse Rate 89 92 H 84 Respiratory Rate 19 20 21 Blood Pressure 177/86 H Pulse Oximetry 88 L 94 94 10/26/21 14:00 Temperature Pulse Rate 84 Respiratory Rate 27 H Blood Pressure Pulse Oximetry 93 MDM - Abdominal Pain Lab Data Result diagrams: 10/26/21 11:20 10/26/21 11:20 Labs: Lab Results 10/26/21 10/26/21 10/26/21 Range/Units 11:20 11:20 12:50 WBC 12.8 H (4.5-11.0) X10^3/uL RBC 4.88 (4.0-5.2) X10^6/uL Hgb 14.4 (12.0-16.0) g/dL Hct 44.3 (36-46) % MCV 90.7 (80-100) fL MCH 29.6 (26-34) PG MCHC 32.6 (30-36) % RDW 13.8 (11.6-14.8) % Plt Count 241 (150-400) X10^3/uL Neut % (Auto) 85.9 H (50-75) % Lymph % (Auto) 7.8 L (25-40) % [place] % (Auto) 5.9 (3-14) % Eos % (Auto) 0.2 L (2-4) % Baso % (Auto) 0.2 (0-2) % Neut # (Auto) 19502 H (2392-0936) /uL Lymph # (Auto) 1000 L (3067-2353) /uL [place] # (Auto) 700 (0-900) /uL Eos # (Auto) 0 (0-450) /uL Baso # (Auto) 0 (0-100) /uL Sodium 140 (137-145) mmol/L Potassium 3.7 (3.4-5.1) mmol/L Chloride 105 (98-107) mmol/L Carbon Dioxide 30 (22-32) mmol/L BUN 23 H (7-17) mg/dL Creatinine 1.07 H (0.52-1.04) mg/dL Estimated GFR 49.3 L (>60) mL/min BUN/Creatinine Ratio 21.5 (6-22) Glucose 146 H (80-110) mg/dL Calcium 10.1 (8.4-10.2) mg/dL Total Bilirubin 0.7 (0.2-1.3) mg/dL AST 35 (14-36) IU/L ALT 18 (<35) IU/L Alkaline Phosphatase 135 H (38-126) U/L Total Protein 7.2 (6.3-8.2) g/dL Albumin 4.1 (3.5-5.0) g/dL Globulin 3.1 (1.7-4.1) g/dL Albumin/Globulin Ratio 1.3 (1.0-2.8) Lipase 44 (23-300) U/L Urine RBC None seen (0-5/HPF) Urine WBC 1-5/hpf (0-5/HPF) Ur Squamous Epith Cells 5-10 /hpf H (0-5/HPF) Triple Phos Crystals Occasional Amorphous Sediment 3+ Urine Bacteria Few (2-10) H (None) Ur Culture Indicated? Cult not indicated SARS-CoV-2 (PCR) (Negative) 10/26/21 Range/Units 13:59 WBC (4.5-11.0) X10^3/uL RBC (4.0-5.2) X10^6/uL Hgb (12.0-16.0) g/dL Hct (36-46) % MCV (80-100) fL MCH (26-34) PG MCHC (30-36) % RDW (11.6-14.8) % Plt Count (150-400) X10^3/uL Neut % (Auto) (50-75) % Lymph % (Auto) (25-40) % [place] % (Auto) (3-14) % Eos % (Auto) (2-4) % Baso % (Auto) (0-2) % Neut # (Auto) (7348-2949) /uL Lymph # (Auto) (9966-3672) /uL [place] # (Auto) (0-900) /uL Eos # (Auto) (0-450) /uL Baso # (Auto) (0-100) /uL Sodium (137-145) mmol/L Potassium (3.4-5.1) mmol/L Chloride (98-107) mmol/L Carbon Dioxide (22-32) mmol/L BUN (7-17) mg/dL Creatinine (0.52-1.04) mg/dL Estimated GFR (>60) mL/min BUN/Creatinine Ratio (6-22) Glucose (80-110) mg/dL Calcium (8.4-10.2) mg/dL Total Bilirubin (0.2-1.3) mg/dL AST (14-36) IU/L ALT (<35) IU/L Alkaline Phosphatase (38-126) U/L Total Protein (6.3-8.2) g/dL Albumin (3.5-5.0) g/dL Globulin (1.7-4.1) g/dL Albumin/Globulin Ratio (1.0-2.8) Lipase (23-300) U/L Urine RBC (0-5/HPF) Urine WBC (0-5/HPF) Ur Squamous Epith Cells (0-5/HPF) Triple Phos Crystals Amorphous Sediment Urine Bacteria (None) Ur Culture Indicated? SARS-CoV-2 (PCR) Negative (Negative) Point of care testing: Urine Dip Bedside Urine Glucose Negative Bedside Urine Bilirubin - Negative Bedside Urine Ketone - Negative Urine Specific [place] 1.015 Bedside Urine Occult Blood - Negative Bedside Urine pH 8 Bedside Urine Protein +/- 15 Bedside Urine Urobilinogen - Negative Bedside Urine Nitrite - Negative Bedside Urine Leukocytes - Negative Esterase Imaging Data US - abdomen: Radiologist's Impression: PROCEDURE:? US ABDOMEN LIMITED ? INDICATIONS:? RUQ PAIN ? TECHNIQUE:? Real-time scanning was performed of the abdominal and retroperitoneal organs, with image documentation.? ? COMPARISON:? None. ? FINDINGS: ? Liver:? Homogeneous echotexture.? No evidence of focal mass lesion.? No intra hepatic biliary ductal dilatation ? Gallbladder:? Shadowing calculi noted without gallbladder wall thickening or pericholecystic fluid ? Common Bile Duct:? 1.3 mm. ? Pancreas:? Unremarkable as visualized ? IMPRESSION: ? 1. Cholelithiasis without ultrasound evidence acute cholecystitis ? Approved by: Jordon Parry M.D. on 10/26/2021 at 11:44? ECG Data Interpretation: sinus rhythm rate 79 p.r. 6 QRS [address] changes improved from prior EKG 08/17/2021 MDM Narrative Medical decision making narrative: Patient continues to have cholelithiasis causing nausea vomiting a decreased appetite and weight loss. She again had vomiting this morning. Blood work is overall reassuring she is not septic at this time. Ultrasound confirms again cholelithiasis with normal bilirubin and normal common bile duct. Dr. Hurst surgery has been updated patient's symptoms test results agrees for cholecystectomy which can happen tomorrow. Request patient be admitted to medicine. Dr. Aggarwal accepts patient Discharge Plan Departure Patient Disposition: Admitted As Inpatient Clinical Impression: Cholecystitis, acute with cholelithiasis Admit Date/Time: 10/26/21 14:21 Admit Provider: Arian Aggarwal
--- NOTE | 2021-10-26 11:22 | DI.US.S_ITS ---
PROCEDURE: US ABDOMEN LIMITED INDICATIONS: RUQ PAIN TECHNIQUE: Real-time scanning was performed of the abdominal and retroperitoneal organs, with image documentation. COMPARISON: None. FINDINGS: Liver: Homogeneous echotexture. No evidence of focal mass lesion. No intra hepatic biliary ductal dilatation Gallbladder: Shadowing calculi noted without gallbladder wall thickening or pericholecystic fluid Common Bile Duct: 1.3 mm. Pancreas: Unremarkable as visualized IMPRESSION: 1. Cholelithiasis without ultrasound evidence acute cholecystitis Approved by: Jordon Parry M.D. on 10/26/2021 at 11:44
[2021-10-26 11:36] LABS: Add Manual Diff / Slide Review NO; Basophils Absolute Auto 0 /uL (0-100); Basophils Percent Auto 0.2 % (0-2); Eosinophils Absolute Auto 0 /uL (0-450); Eosinophils Percent Auto 0.2 % (2-4); Hematocrit 44.3 % (36-46); Hemoglobin 14.4 g/dL (12.0-16.0); Lymphocytes Absolute Auto 1000 /uL (1100-4500); Lymphocytes Percent Auto 7.8 % (25-40); Mean Corpuscular HGB Conc 32.6 % (30-36); Mean Corpuscular Hemoglobin 29.6 PG (26-34); Mean Corpuscular Volume 90.7 fL (80-100); Monocytes Absolute Auto 700 /uL (0-900); Monocytes Percent Auto 5.9 % (3-14); Neutrophils Absolute Auto 11000 /uL (1500-7000); Neutrophils Percent Auto 85.9 % (50-75); Platelet Count 241 X10^3/uL (150-400); Red Blood Cell Count 4.88 X10^6/uL (4.0-5.2); Red Cell Distribution Width 13.8 % (11.6-14.8); White Blood Cell Count 12.8 X10^3/uL (4.5-11.0)
[2021-10-26 11:43] LABS: Alanine Aminotransferase 18 IU/L (<35); Albumin 4.1 g/dL (3.5-5.0); Albumin Globulin Ratio 1.3 (1.0-2.8); Alkaline Phosphatase 135 U/L (38-126); Aspartate Aminotransferase 35 IU/L (14-36); BUN Creatinine Ratio 21.5 (6-22); Bilirubin Total 0.7 mg/dL (0.2-1.3); Blood Urea Nitrogen 23 mg/dL (7-17); Calcium 10.1 mg/dL (8.4-10.2); Carbon Dioxide 30 mmol/L (22-32); Chloride 105 mmol/L (98-107); Estimated Glomerular Filt Rate 49.3 mL/min (>60); Globulin 3.1 g/dL (1.7-4.1); Glucose 146 mg/dL (80-110); HEMOLYSIS < 15 (0-50); Lipase 44 U/L (23-300); Potassium 3.7 mmol/L (3.4-5.1); Sodium 140 mmol/L (137-145); Total Protein 7.2 g/dL (6.3-8.2)
[2021-10-26] MEDS: ONDANSETRON 4 MG/2 ML INJ IV ×2 (11:52→20:19)
[2021-10-26] MEDS: SODIUM CHLORIDE 0.9% 1,000 ML 1000 ML IV (11:52)
[2021-10-26] MEDS: MORPHINE 2 MG/ML INJ IV ×2 (11:52→20:11)
[2021-10-26 13:07] LABS: Bacteria Urine Few (2-10); Culture Indicated Urine Cult Not Indicated; RBC Urine None Seen (0-5/HPF); Squamous Epithelial Cell Urine 5-10 /HPF (0-5/HPF); Triple Phosphate Crystal Urine Occasional; WBC Urine 1-5/HPF (0-5/HPF)
[2021-10-26 13:08] LABS: Amorphous Sediment Urine 3+
[2021-10-26] MEDS: levETIRAcetam 500 MG in SODIUM CHLORIDE 0.9% 100 ML 420 ML IV ×2 (13:34→21:11)
[2021-10-26 15:05] LABS: COVID19 -Nasal RAPID Negative (Negative)
--- NOTE | 2021-10-26 16:09 | PM.HP.1 ---
History of Present Illness History of Present Illness Date Patient Seen: 10/26/21 Time Patient Seen: 16:10 Chief complaint: Issues with galbladder Narrative: This is an 81-year-old female with the past medical history of atrial fibrillation, prior stroke about 8 months ago with subsequent seizures, vascular dementia, essential hypertension, asthma, and recent history of cholecystitis 3 months ago who presents with 1 day of abdominal pain, nausea, and vomiting. Abdominal pain is epigastric and right upper quadrant, with some radiation into the right neck. It is worse after eating and she develops nausea. She has had nothing to eat today. Months ago the patient presented with similar symptoms and was found to have acute cholecystitis with biliary dilatation. She was transferred to the [facility] where the patient improved on antibiotic therapy and was discharged home before any procedures were performed. Plan was for outpatient ERCP and cholecystectomy. The patient recently had an ERCP it sounds like at [facility] where multiple stones were seen and sludge was removed and she had what sounds like a sphincterotomy. Records are not available for review at this time. The plan was for a surgical resection of her gallbladder after surgery. Early this morning, the patient began to have significant nausea with emesis. She normally has nausea and actually has lost quite a bit of weight due to fear of pain and nausea after eating, but she had not had any recent vomiting until today. The patient has had some memory issues since her stroke, and much of this history is obtained from her daughter who was at bedside. The patient denies any fevers, chills, chest pain, shortness of breath. She reports no lower extremity edema, dysuria, or urinary frequency recently. Does have constipation but no diarrhea. She reports no recent seizure activity. In the emergency room, the patient was mildly hypertensive but the remainder of her vital signs are unremarkable. Laboratory evaluation revealed a mild leukocytosis with WBC 12.8, but the remainder of her CBC was unremarkable. Chemistries showed a creatinine of 1.07 which is somewhat improved from her prior ER visit when she had acute cholecystitis. Further chemistries were unremarkable. Her urinalysis was not indicative of infection and was slightly contaminated. COVID-19 testing is negative. Patient History Medical History (Updated 10/26/21 @ 16:12 by Arian Aggarwal DO) Asthma CVA (cerebral vascular accident) Essential hypertension Paroxysmal atrial fibrillation 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 (CVA) Vascular dementia Surgical History (Updated 10/26/21 @ 16:11 by Arian Aggarwal DO) H/O: hysterectomy History of bilateral knee replacement History of ERCP Family & Social History Family history unavailable: Yes (patient unable to recall family history - dementia) Social History: household members children Prior Living Arrangements House Safety & Behavioral: Feels Safe in Current Yes Environment Been Physically Hurt or No Threatened By a Person Suicidal Ideation Description None Suicide Plan Description No Plan Tobacco & Substance use: Smoking Status Never smoker alcohol intake never Substance Use Type does not use Meds Home Medications and Allergies Home Medications Medication Instructions Recorded Confirmed Type aspirin 81 mg tablet 81 mg PO DAILY 08/17/21 10/26/21 History calcitonin (salmon) 200 1 spray INTRANASAL DAILY 08/17/21 10/26/21 History unit/actuation nasal spray levetiracetam 250 mg tablet 500 mg PO BID 08/17/21 10/26/21 History lisinopril 2.5 mg tablet 2.5 mg PO QPM 08/17/21 10/26/21 History verapamil 240 mg tablet,extended 240 mg PO DAILY 08/17/21 10/26/21 History release albuterol sulfate 90 mcg/actuation 2 puff INHALATION DAILY 10/26/21 10/26/21 History aerosol inhaler dronabinol 2.5 mg capsule 2.5 mg PO BID 10/26/21 10/26/21 History lidocaine 5 % topical patch 1 patch TRANSDERMAL BID PRN 10/26/21 10/26/21 History ondansetron 4 mg disintegrating 4 mg TRANSLINGUAL Q8H PRN 10/26/21 10/26/21 History tablet Allergies Allergy/AdvReac Type Severity Reaction Status Date / Time Penicillins Allergy Verified 08/17/21 11:22 Review of Systems Review of Systems Narrative: All other systems reviewed with the patient and are negative unless otherwise stated. Exam Vital Signs (past 8 hours): - 10/26/21 10:15 10/26/21 10:32 10/26/21 11:00 Temperature 97.8 F Pulse Rate 83 80 92 H Respiratory Rate 14 25 H 16 Blood Pressure 142/95 H 157/94 H Pulse Oximetry 91 92 92 10/26/21 11:30 10/26/21 11:31 10/26/21 12:00 Temperature Pulse Rate 78 80 90 Respiratory Rate 22 23 22 Blood Pressure 184/86 H 170/90 H Pulse Oximetry 92 92 91 10/26/21 12:30 10/26/21 13:00 10/26/21 13:30 Temperature Pulse Rate 89 92 H 84 Respiratory Rate 19 20 21 Blood Pressure 177/86 H Pulse Oximetry 88 L 94 94 10/26/21 14:00 10/26/21 14:53 10/26/21 14:54 Temperature Pulse Rate 84 78 98 H Respiratory Rate 27 H Blood Pressure 155/91 H Pulse Oximetry 93 92 94 10/26/21 15:00 Temperature 98.1 F Pulse Rate 80 Respiratory Rate 11 L Blood Pressure 149/83 H Pulse Oximetry 93 Oxygen Delivery Method Room Air Oxygen Flow Rate 0 Narrative Exam Narrative: GENERAL APPEARANCE: Thin appearing, elderly female, appears fatigued but no acute distress. Soft spoken. SKIN: Inspection of the skin reveals no rashes, ulcerations or petechiae. HEENT: Normocephalic atraumatic, extraocular muscles are intact, oropharynx is clear and mucous membranes are dry. NECK: Supple and symmetric. There was no thyroid enlargement, and no tenderness, or masses were felt. CHEST: Normal AP diameter and normal contour without any kyphoscoliosis. LUNGS: Auscultation of the lungs revealed no wheezes, rhonchi, or rales. Shallow breaths with decreased breath sounds bilaterally. CARDIOVASCULAR: There was a regular rate and rhythm without any murmurs, gallops, rubs. Peripheral pulses were 2+ and symmetric. ABDOMEN: Soft, tender RUQ with + melton sign. Non-distended. MUSCULOSKELETAL: There was no tenderness or effusions noted. Muscle strength and tone were normal. EXTREMITIES: No cyanosis, clubbing or edema. NEUROLOGIC: Alert and oriented x 1. Confused. Strength is +5/5 in the Upper Extremities and Lower Extremities Bilaterally. Objective ECG Impression: sinus rhythm, artifact. Qtc 495. Imaging US - abdomen: Radiologist's impression: PROCEDURE:? US ABDOMEN LIMITED ? INDICATIONS:? RUQ PAIN ? TECHNIQUE:? Real-time scanning was performed of the abdominal and retroperitoneal organs, with image documentation.? ? COMPARISON:? None. ? FINDINGS: ? Liver:? Homogeneous echotexture.? No evidence of focal mass lesion.? No intra hepatic biliary ductal dilatation ? Gallbladder:? Shadowing calculi noted without gallbladder wall thickening or pericholecystic fluid ? Common Bile Duct:? 1.3 mm. ? Pancreas:? Unremarkable as visualized ? IMPRESSION: ? 1. Cholelithiasis without ultrasound evidence acute cholecystitis Labs Result Diagrams: 10/26/21 11:20 10/26/21 11:20 Labs: Laboratory Results - last 24 hr 10/26/21 10/26/21 10/26/21 11:20 11:20 12:50 WBC 12.8 H RBC 4.88 Hgb 14.4 Hct 44.3 MCV 90.7 MCH 29.6 MCHC 32.6 RDW 13.8 Plt Count 241 Neut % (Auto) 85.9 H Lymph % (Auto) 7.8 L [place] % (Auto) 5.9 Eos % (Auto) 0.2 L Baso % (Auto) 0.2 Neut # (Auto) 56077 H Lymph # (Auto) 1000 L [place] # (Auto) 700 Eos # (Auto) 0 Baso # (Auto) 0 Sodium 140 Potassium 3.7 Chloride 105 Carbon Dioxide 30 BUN 23 H Creatinine 1.07 H Estimated GFR 49.3 L BUN/Creatinine Ratio 21.5 Glucose 146 H Calcium 10.1 Total Bilirubin 0.7 AST 35 ALT 18 Alkaline Phosphatase 135 H Total Protein 7.2 Albumin 4.1 Globulin 3.1 Albumin/Globulin Ratio 1.3 Lipase 44 Urine RBC None seen Urine WBC 1-5/hpf Ur Squamous Epith Cells 5-10 /hpf H Triple Phos Crystals Occasional Amorphous Sediment 3+ Urine Bacteria Few (2-10) H Ur Culture Indicated? Cult not indicated SARS-CoV-2 (PCR) 10/26/21 13:59 WBC RBC Hgb Hct MCV MCH MCHC RDW Plt Count Neut % (Auto) Lymph % (Auto) [place] % (Auto) Eos % (Auto) Baso % (Auto) Neut # (Auto) Lymph # (Auto) [place] # (Auto) Eos # (Auto) Baso # (Auto) Sodium Potassium Chloride Carbon Dioxide BUN Creatinine Estimated GFR BUN/Creatinine Ratio Glucose Calcium Total Bilirubin AST ALT Alkaline Phosphatase Total Protein Albumin Globulin Albumin/Globulin Ratio Lipase Urine RBC Urine WBC Ur Squamous Epith Cells Triple Phos Crystals Amorphous Sediment Urine Bacteria Ur Culture Indicated? SARS-CoV-2 (PCR) Negative Assessment & Plan Assessment & Plan narrative: This is an 81-year-old female with the past medical history of atrial fibrillation, prior stroke about 8 months ago with subsequent seizures, vascular dementia, essential hypertension, asthma, and recent history of cholecystitis 3 months ago who presents with 1 day of abdominal pain, nausea, and vomiting. 1. Acute on chronic cholecystitis with prior choledocholithiasis - Dr. Hurst plans for cholecystecomy tomorrow. Recent ERCP at [facility] with sphincterotomy, no records currently available for review. No current elevation in bilirubin or LFTs. - zosyn for presumed cholecystitis despite abdominal ultrasound given + melton sign leukocytosis and presentation. - EKG without evidence of ischemia - CLD for now, NPO at midnight for planned cholecystecomy tomorrow. - morphine for pain control, zofran for nausea 2. paroxysmal atrial fibrillation - continue home verapamil - tele monitor - EKG with sinus rhythm, PVC and no evidence of acute ischemia. 3. prior CVA with residual cognitive impairment and seizure disorder. - continue IV keppra for seizure prevention - keppra level ordered in ER 4. HTN - hold home lisinopril prior to OR 5. asthma. - continue albuterol prn Code: DNR, surrogate decision maker is daughter Kayla Mortensen DVT: hold lovenox for surgery tomorrow, resume after Dispo: Admit as inpatient as her stay is expected to exceed two midnights. I have utilized all available immediate resources to obtain, update, or review the patient's current medications. COVID-19 COVID-19 status: Negative Time Spent With Patient Critical Care time: I spent a total of [] minutes of critical care time on this patient's care today; this time is exclusive of procedural time. Quality VTE Deep Vein Thrombosis/Pulmonary Embolism Present on Admission: No MIPS - Admit I confirm the patient?s Advance Care Plan is present, Code status is documented, Surrogate decision maker is in patient?s record [If Yes, STOP here]: Yes
[2021-10-26] MEDS: SODIUM CHLORIDE 0.9% 1,000 ML 75 ML IV (17:09)
[2021-10-26] MEDS: PIPERACILLIN/TAZO 3.375 GM in SODIUM CHLORIDE 0.9% 100 ML 25 ML IV ×2 (17:10→23:58)
[2021-10-27] VITALS (24 sets, daily range): BP systolic 97–139; BP diastolic 49–90; PULSE 69–108; RESP 11–93; TEMP 36.3–37.5; O2SAT 13–98; BMI 22.6
--- NOTE | 2021-10-27 | PATH_ITS ---
[facility] Accession Number: [id number] . 01 Material submitted: . gallbladder - GALLBLADDER . 02 Diagnosis: Gallbladder, Cholecystectomy: Marked chronic active cholecystitis with features of perforation. No evidence of neoplasm. MRV 10/29/2021 1032 Local . 02 Electronically signed: . Anthony Wilson MD, PhD, Pathologist NPI- [id number] . 01 Gross description: . Received in formalin labeled with the patient's name and additionally labeled gallbladder is an irregular multiply disrupted gallbladder measuring 7.0 x 3.5 x 2.0 cm. The serosal surface is lozoya-gregory and granular with areas of fibrinopurulent exudate. There is also an apparent rupture site at the tip of the gallbladder measuring 2.0 x 0.5 cm. The specimen is opened through the rupture site through the tortuous cystic duct revealing a brown velvety mucosa with patchy areas of exudate. The gallbladder wall averages 3.0 mm in thickness. No other masses or lesions are identified. [employer] sections are submitted in cassette A1. ([id number]) /[facility] 10/28/2021 1425 Local . 02 Pathologist provided ICD-10: K81.2 . 02 CPT . 429247 Specimen Comment: A courtesy copy of this report has been sent to [phone] Performed at: 01 [facility] [address] [id number] MD Joseph Pineda MD Phone: [phone] Performed at: 02 [facility] [place] [address] [place], [place] [id number] MD Mei Treviño MD Phone: [phone]
[2021-10-27] MEDS: MORPHINE 2 MG/ML INJ IV ×3 (06:38→21:50)
[2021-10-27] MEDS: SODIUM CHLORIDE 0.9% 1,000 ML 75 ML IV (06:40)
[2021-10-27] MEDS: ONDANSETRON 4 MG/2 ML INJ IV (06:42)
[2021-10-27 07:26] LABS: Add Manual Diff / Slide Review NO; Basophils Absolute Auto 100 /uL (0-100); Basophils Percent Auto 0.2 % (0-2); Eosinophils Absolute Auto 0 /uL (0-450); Hematocrit 42.8 % (36-46); Hemoglobin 14.2 g/dL (12.0-16.0); Lymphocytes Absolute Auto 1300 /uL (1100-4500); Lymphocytes Percent Auto 4.6 % (25-40); Mean Corpuscular HGB Conc 33.2 % (30-36); Mean Corpuscular Hemoglobin 29.7 PG (26-34); Mean Corpuscular Volume 89.5 fL (80-100); Monocytes Absolute Auto 1500 /uL (0-900); Monocytes Percent Auto 5.2 % (3-14); Neutrophils Absolute Auto 25200 /uL (1500-7000); Platelet Count 243 X10^3/uL (150-400); Red Blood Cell Count 4.78 X10^6/uL (4.0-5.2); Red Cell Distribution Width 14.1 % (11.6-14.8)
[2021-10-27 07:37] LABS: Alanine Aminotransferase 22 IU/L (<35); Albumin 3.7 g/dL (3.5-5.0); Albumin Globulin Ratio 1.1 (1.0-2.8); Alkaline Phosphatase 97 U/L (38-126); Aspartate Aminotransferase 38 IU/L (14-36); BUN Creatinine Ratio 18.8 (6-22); Bilirubin Total 1.2 mg/dL (0.2-1.3); Blood Urea Nitrogen 19 mg/dL (7-17); Calcium 9.1 mg/dL (8.4-10.2); Carbon Dioxide 26 mmol/L (22-32); Chloride 105 mmol/L (98-107); Estimated Glomerular Filt Rate 52.7 mL/min (>60); Globulin 3.4 g/dL (1.7-4.1); Glucose 128 mg/dL (80-110); HEMOLYSIS < 15 (0-50); Magnesium 1.4 mg/dL (1.6-2.3); Potassium 3.5 mmol/L (3.4-5.1); Sodium 140 mmol/L (137-145); Total Protein 7.1 g/dL (6.3-8.2)
[2021-10-27] MEDS: levETIRAcetam 500 MG in SODIUM CHLORIDE 0.9% 100 ML 420 ML IV ×2 (08:25→19:33)
--- NOTE | 2021-10-27 09:58 | PC.NURSE ---
Pt to OR/Pre-o[ for Lap Bebe via bed by OR staff with chart. IV SL for transfer. Daughter to go to Pre-OP to sign consent for Pt.
--- NOTE | 2021-10-27 10:05 | SUR.HOLD ---
Staff who brought the patient downstairs state that she has dementia, awaiting daughter to arrive
[2021-10-27] MEDS: LACTATED RINGERS 1,000 ML 42 ML IV (10:15)
--- NOTE | 2021-10-27 10:31 | P.CONS_ITS ---
History of Present Illness Consult details Date Patient Seen: 10/27/21 Time Patient Seen: 10:31 Chief complaint: Issues with galbladder Reason for consult: Acute cholecystitis Requesting provider: Manav Cavanaugh Narrative: H/o common bile duct stone with acute cholecystitis. S/p ERCP at [facility] (outpatient) recently. cholecystitis responded at with antibiotics (had a failed ERCP there). Poor appetite with 14 lbs weight loss likely due to cholecystitis and stress. S/P stroke with cognitive issues, non verbal this morning. Daughter who is POA signing consent. Meds Home Medications and Allergies Home Medications Medication Instructions Recorded Confirmed Type aspirin 81 mg tablet 81 mg PO DAILY 08/17/21 10/26/21 History calcitonin (salmon) 200 1 spray INTRANASAL DAILY 08/17/21 10/26/21 History unit/actuation nasal spray levetiracetam 250 mg tablet 500 mg PO BID 08/17/21 10/26/21 History lisinopril 2.5 mg tablet 2.5 mg PO QPM 08/17/21 10/26/21 History verapamil 240 mg tablet,extended 240 mg PO DAILY 08/17/21 10/26/21 History release albuterol sulfate 90 mcg/actuation 2 puff INHALATION DAILY 10/26/21 10/26/21 History aerosol inhaler dronabinol 2.5 mg capsule 2.5 mg PO BID 10/26/21 10/26/21 History lidocaine 5 % topical patch 1 patch TRANSDERMAL BID PRN 10/26/21 10/26/21 History ondansetron 4 mg disintegrating 4 mg TRANSLINGUAL Q8H PRN 10/26/21 10/26/21 History tablet Allergies Allergy/AdvReac Type Severity Reaction Status Date / Time Penicillins Allergy Verified 08/17/21 11:22 Review of Systems Review of Systems ROS: Yes unobtainable due to mental status Exam Vital Signs (past 8 hours): - 10/27/21 04:05 10/27/21 08:00 10/27/21 09:46 Temperature 98.2 F Pulse Rate 90 69 Respiratory Rate 16 18 Blood Pressure 134/85 Pulse Oximetry 98 92 92 10/27/21 10:06 Temperature 98.5 F Pulse Rate 108 H Respiratory Rate 20 Blood Pressure 139/81 Pulse Oximetry 93 Oxygen Delivery Method Room Air Oxygen Flow Rate 0 Narrative Exam Narrative: thin, frail. Not responsive to questions. Voluntary movement of all extremities Const General: frail appearing and ill appearing Nutritional Appearance: underweight Orientation: other Limitations: altered mental status HENMT Head: normal to inspection, normocephalic and atraumatic Eyes Sclera: sclerae normal Neck Neck: trachea midline Chest Chest: normal inspection of the chest Resp Effort & Inspection: normal respiratory effort Cardio Rate: tachycardic Rhythm: regular rhythm GI Palpation: soft Other: no guarding Skin General: atrophy and ecchymosis Wounds: no wounds Neuro General: moves all extremities and no focal motor deficits Cognition: abnormal cognition Psych Affect: indifferent Judgment: other Objective Labs Result Diagrams: 10/27/21 06:55 10/27/21 06:55 Labs: Laboratory Results - last 24 hr 10/26/21 10/26/21 10/26/21 11:20 11:20 12:50 WBC 12.8 H RBC 4.88 Hgb 14.4 Hct 44.3 MCV 90.7 MCH 29.6 MCHC 32.6 RDW 13.8 Plt Count 241 Neut % (Auto) 85.9 H Lymph % (Auto) 7.8 L [place] % (Auto) 5.9 Eos % (Auto) 0.2 L Baso % (Auto) 0.2 Neut # (Auto) 34481 H Lymph # (Auto) 1000 L [place] # (Auto) 700 Eos # (Auto) 0 Baso # (Auto) 0 Sodium 140 Potassium 3.7 Chloride 105 Carbon Dioxide 30 BUN 23 H Creatinine 1.07 H Estimated GFR 49.3 L BUN/Creatinine Ratio 21.5 Glucose 146 H Calcium 10.1 Magnesium Total Bilirubin 0.7 Conjugated Bilirubin Unconjugated Bilirubin AST 35 ALT 18 Alkaline Phosphatase 135 H Total Protein 7.2 Albumin 4.1 Globulin 3.1 Albumin/Globulin Ratio 1.3 Lipase 44 Urine RBC None seen Urine WBC 1-5/hpf Ur Squamous Epith Cells 5-10 /hpf H Triple Phos Crystals Occasional Amorphous Sediment 3+ Urine Bacteria Few (2-10) H Ur Culture Indicated? Cult not indicated SARS-CoV-2 (PCR) 10/26/21 10/27/21 10/27/21 13:59 06:55 06:55 WBC 28.0 H D RBC 4.78 Hgb 14.2 Hct 42.8 MCV 89.5 MCH 29.7 MCHC 33.2 RDW 14.1 Plt Count 243 Neut % (Auto) 90.0 H Lymph % (Auto) 4.6 L [place] % (Auto) 5.2 Eos % (Auto) 0.0 L Baso % (Auto) 0.2 Neut # (Auto) 02009 H Lymph # (Auto) 1300 [place] # (Auto) 1500 H Eos # (Auto) 0 Baso # (Auto) 100 Sodium 140 Potassium 3.5 Chloride 105 Carbon Dioxide 26 BUN 19 H Creatinine 1.01 Estimated GFR 52.7 L BUN/Creatinine Ratio 18.8 Glucose 128 H Calcium 9.1 Magnesium 1.4 L Total Bilirubin 1.2 Conjugated Bilirubin 0.0 Unconjugated Bilirubin 1.0 AST 38 H ALT 22 Alkaline Phosphatase 97 Total Protein 7.1 Albumin 3.7 Globulin 3.4 Albumin/Globulin Ratio 1.1 Lipase Urine RBC Urine WBC Ur Squamous Epith Cells Triple Phos Crystals Amorphous Sediment Urine Bacteria Ur Culture Indicated? SARS-CoV-2 (PCR) Negative [facility] Medical History Asthma CVA (cerebral vascular accident) Essential hypertension Paroxysmal atrial fibrillation 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 (CVA) Vascular dementia Surgical History H/O: hysterectomy History of bilateral knee replacement History of ERCP Social History household members: children Tobacco & Substance Use Smoking Status: Never smoker alcohol intake: never Assessment & Plan Assessment & Plan narrative: Acute cholecystitis s/p stroke Plan: Lap whitney with possible drain placement and abort. Discussed with POA (Daughter) that no heroic efforts if cardiac arrest in OR. COVID-19 COVID-19 status: Negative Time Spent With Patient Time with patient: 30 to 49 minutes with 50% spent counseling/coordinating care Critical Care time: I spent a total of [] minutes of critical care time on this patient's care today; this time is exclusive of procedural time.
[2021-10-27] MEDS: PIPERACILLIN/TAZO 3.375 GM in SODIUM CHLORIDE 0.9% 100 ML 25 ML IV ×2 (11:06→19:52)
--- NOTE | 2021-10-27 11:32 | SUR.OPER ---
Supine on padded OR bed, head on pillow, safety belt at thigh, left arm padded and tucked at side. Right arm secured on padded arm board <90 degrees abduction. Legs uncrossed. Padded footboard in place. Tape over blanket to secure lower legs.
[2021-10-27] MEDS: BUPIVACAINE 0.5% (PF) 30 ML, EPINEPHrine 0.15 MG INJ (11:45)
--- NOTE | 2021-10-27 12:31 | PM.OP.1 ---
Operative Date/Time/Diagnoses Date of procedure: 10/27/21 Time of procedure: 12:31 Pre-op diagnosis: Acute cholecystitis Post-op diagnosis: same Procedure & Clinicians Procedure: Laparoscopic cholecystectomy Same procedure as scheduled: Yes Indications: Acute on chronic cholecystitis Surgeon: Madeline Blair Click Yes if Unassisted: Yes Anesthesia Type: General Operative Notes Findings: Gangrenous cholecystitis Closure Type: primary Specimen(s): other (Gallbladder) Applied: drain(s) (15 Pashto Arley-Mallory) Estimated Blood Loss (mL): 70 Blood products transfused: none Procedure in detail: Prep diagnosis: Acute on chronic cholecystitis Postop diagnosis: Gangrenous cholecystitis Operative procedure: Laparoscopic cholecystectomy Surgeon: Cristiane Blair MD Anesthesia: General with ET tube intubation along with local Findings: Gangrenous gallbladder ultimately adhesions Procedure: Patient placed in a supine position. Prepped and draped sterile fashion expose her abdomen. Infraumbilical port site was placed using open technique a 12 mm port. Insufflation began all other ports were placed under direct vision including a 10 mm port in the epigastrium, and 5 mm port x2 in the right lateral abdomen. Gallbladder was unroofed from its omental attachments lifted cephalad for exposure where it tore from its necrotic state and decompressed. Pus emanated from the gallbladder itself. No stone spillage. I then identified the cystic duct, clipped it twice proximally, once distally and transected. Cystic artery was identified clipped once distally twice proximally transected. Gallbladder removed in the fossa by electrocautery, sharp dissection this long along with blunt dissection. Hemostasis achieved with electrocautery as well as Surgicel. A 15 Pashto drain was placed into the surgical site and brought out through the existing 5 mm port site. Sutured to the skin with 3-0 nylon. I then removed all ports and began closure. Closure consisted of interrupted 0 Vicryl for fascial closure. Skin was closed a running 4-0 Vicryl. Steri-Strips and sterile dressings were placed. Patient was awakened, extubated, taken to recovery room in stable condition. Needle, instrument, sponge counts were correct. Blood loss: 70 mL Specimen: Gallbladder Complications: none Post-operative Condition: stable Disposition: PACU Plan for aftercare: Continue antibiotics
[2021-10-27] MEDS: ALBUTEROL 2.5 MG/3 ML NEB (ADULT) INH (12:53)
--- NOTE | 2021-10-27 12:58 | SUR.PHASEI ---
2534 Dr Simpson notified of patient new expiratory wheeze to left anterior lung. MD to bedside to see patient. Pt to receive Alb Neb in PACU using order from floor.
--- NOTE | 2021-10-27 13:37 | SUR.PHASEI ---
Pt. transferred in bed to 209 with Mahi RN, SBAR report to Rosalba JACKSON. Pt is on nasal cannulla, 2 L. Dtr. Kayla at bedside. pt. opens eyes to name, no s/s of pain/distress.
--- NOTE | 2021-10-27 14:46 | PM.PN.1 ---
Subjective Subjective Date Patient Seen: 10/27/21 Time Patient Seen: 08:00 Interval history: She is seen after surgery. She is sleepy in the immediate post-operative setting. She underwent lap whitney with gangrenous cholecystitis with pus noted during the procedure. She had a drain in place Exam Vital Signs (past 8 hours): - 10/27/21 08:00 10/27/21 09:46 10/27/21 10:06 Temperature 98.2 F 98.5 F Pulse Rate 69 108 H Respiratory Rate 18 20 Blood Pressure 134/85 139/81 Pulse Oximetry 92 92 93 10/27/21 12:27 10/27/21 12:32 10/27/21 12:37 Temperature 99.5 F Pulse Rate 96 H 85 86 Respiratory Rate 17 15 15 Blood Pressure 110/61 116/53 L 102/56 L Pulse Oximetry 90 L 97 97 10/27/21 12:42 10/27/21 12:47 10/27/21 12:52 Temperature 97.3 F L Pulse Rate 87 105 H 82 Respiratory Rate 15 16 13 Blood Pressure 98/58 L 107/57 L 103/49 L Pulse Oximetry 95 94 92 10/27/21 12:56 10/27/21 13:11 10/27/21 13:20 Temperature 97.9 F 98.0 F Pulse Rate 101 H 89 81 Respiratory Rate 93 H 11 L 15 Blood Pressure 97/59 L 107/62 109/65 Pulse Oximetry 13 L 93 94 10/27/21 13:35 10/27/21 13:54 Temperature 97.6 F 97.9 F Pulse Rate 81 83 Respiratory Rate 16 15 Blood Pressure 131/76 115/69 Pulse Oximetry 96 91 Oxygen Delivery Method Nasal Cannula Oxygen Flow Rate 2 Narrative Exam Narrative: GEN: no acute distress HEENT: moist mucous membranes CV: regular rate and rhythm, no murmurs PULM: clear bilaterally ABD: soft, nontender, nondisteded, DEANA drain in place with small amout serosanguinous fluid EXT: warm and well perfused with no edema NEURO: sleepy Objective Labs Result Diagrams: 10/27/21 06:55 10/27/21 06:55 Labs: Laboratory Results - last 24 hr 10/26/21 10/27/21 10/27/21 13:59 06:55 06:55 WBC 28.0 H D RBC 4.78 Hgb 14.2 Hct 42.8 MCV 89.5 MCH 29.7 MCHC 33.2 RDW 14.1 Plt Count 243 Neut % (Auto) 90.0 H Lymph % (Auto) 4.6 L Mayes % (Auto) 5.2 Eos % (Auto) 0.0 L Baso % (Auto) 0.2 Neut # (Auto) 54578 H Lymph # (Auto) 1300 Mayes # (Auto) 1500 H Eos # (Auto) 0 Baso # (Auto) 100 Sodium 140 Potassium 3.5 Chloride 105 Carbon Dioxide 26 BUN 19 H Creatinine 1.01 Estimated GFR 52.7 L BUN/Creatinine Ratio 18.8 Glucose 128 H Calcium 9.1 Magnesium 1.4 L Total Bilirubin 1.2 Conjugated Bilirubin 0.0 Unconjugated Bilirubin 1.0 AST 38 H ALT 22 Alkaline Phosphatase 97 Total Protein 7.1 Albumin 3.7 Globulin 3.4 Albumin/Globulin Ratio 1.1 SARS-CoV-2 (PCR) Negative [facility] Medical History Asthma CVA (cerebral vascular accident) Essential hypertension Paroxysmal atrial fibrillation 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 (CVA) Vascular dementia Surgical History H/O: hysterectomy History of bilateral knee replacement History of ERCP Social History household members: children Smoking Status: Never smoker alcohol intake: never Assessment & Plan Assessment & Plan narrative: 81W with PMH atrial fibrillation, prior stroke about 8 months ago with subsequent seizures, vascular dementia, essential hypertension, asthma, and recent history of cholecystitis 3 months ago who presents with 1 day of abdominal pain, nausea, and vomiting. 1. Acute on chronic cholecystitis with prior choledocholithiasis ?- Recent ERCP at [facility] with sphincterotomy, normal LFTs ?- zosyn for presumed cholecystitis despite abdominal ultrasound given + melton sign leukocytosis and presentation - WBC rising from 12 to 28 - underwent lap whitney on 10/27 ?- EKG without evidence of ischemia ?- CLD for now, NPO at midnight for planned cholecystecomy tomorrow. ?- morphine for pain control, zofran for nausea 2. paroxysmal atrial fibrillation ?- continue home verapamil ?- tele monitor ?- EKG with sinus rhythm, PVC and no evidence of acute ischemia. 3. prior CVA with residual cognitive impairment and seizure disorder. ?- continue IV keppra for seizure prevention ?- keppra level ordered in ER 4. HTN ?- hold home lisinopril prior to OR 5. asthma. ?- continue albuterol prn Code: DNR, surrogate decision maker is daughter Kayla Mortensen DVT: resume lovenox 10/28 Dispo: Admit as inpatient as her stay is expected to exceed two midnights. Time Spent With Patient Critical Care time: I spent a total of [] minutes of critical care time on this patient's care today; this time is exclusive of procedural time. Quality VTE Deep Vein Thrombosis/Pulmonary Embolism Present on Admission: No
--- NOTE | 2021-10-27 16:21 | CM.DANOTE ---
DCP Assessment: patient is an 81 yr old female who was admitted for Lap Bebe preformed by dr saba. patient has Cognitive issues associated with previous stroke so CM called her DPOA her daughter Kayla. Kayla stated the patient lives with her in a two story home and is her primary career consultant. Kayla is also a nurse. Patients daughter provides help with all ADLs and drives the patient to and from where she needs to go. Patient has fWW, Cane, wheel chair, elevated toilet seat and a lift chair that gets the patient from one floor to the next. I: medicare and for life P: DC home with family when medically stable no identified DC planning need identified. Bree jacinto RNblanket winder operator Discharge Planning/Care Management CM Discharge Assessment Start: 10/27/21 16:15 Freq: Status: Active Protocol: Document 10/27/21 16:17 HS (Rec: 10/27/21 16:21 HS [id number]) Discharge Planning Assessment Assigned Caddy/Caddie Supervisor Bree Jacinto RNlead case manager DPOA/Assigned Designee Name Kayla Mortensen - Daughter Contact Information [phone] Advance Directives? Yes History Provided By Patient Prior Living Arrangements House Household Members children Comment Patient lives with her adult jae Type of transporation used prior to Relies on Others admit Comment daughter provides all her transportation needs Independent with ADL's No Is patient alert and oriented? No Needs Assistance With Bathing,Eating,Grooming,Meal Prep,Toileting,Managing Medications,Home Chores / Shopping Comment Daughter provides all her care needs Caregiver for Another No DME Already Rented / Owned Bath Bench,Wheelchair,Elevated Toilet Seat,FWW / Walker,Cane Barriers to Discharge No Discharge Plan Home Referrals Initiated None needed Whiteboard Updated in Patient Room with Yes name and ext. # of Caddy/Caddie Supervisor Review Status In Process Next Review Type Continued Stay Review
[2021-10-27] MEDS: MAGNESIUM SULFATE 2 GM/50 ML PIGGYBACK IV (16:41)
[2021-10-28] VITALS (16 sets, daily range): BP systolic 111–153; BP diastolic 59–84; PULSE 50–113; RESP 14–16; TEMP 36.1–36.6; O2SAT 91–97
--- NOTE | 2021-10-28 00:51 | PC.NURSE ---
Patient oriented only to name and then kept repeating name in response to questions asked after. Responses are delayed. Breath sounds diminished but CTA; on oxygen at 1L/min per NC with sat of 94%; is on continuous oximetry. HR irregular; hx of afib. BT absent at time of assessment. Has been incontinent of urine although was gotten up to BSC with 2 assists and voided only 50cc. Is needing to be repositioned q2h as not moving herself in bed. Dressings to abdomen are CDI except for dressing around DEANA which is 50% saturated with serosanguinous drainage but no leakage. DEANA is intact and compressed. Is wearing bilateral calf SCD's. Fall risk score is high and bed alarm is activated. At time of assessment had a FLACC of 0 but did seem to have more pain around 2150 and was medicated by RNTila, with Morphine and is currently asleep.
[2021-10-28] MEDS: SODIUM CHLORIDE 0.9% 1,000 ML 75 ML IV ×2 (01:55→15:20)
[2021-10-28] MEDS: PIPERACILLIN/TAZO 3.375 GM in SODIUM CHLORIDE 0.9% 100 ML 25 ML IV ×3 (03:40→19:02)
[2021-10-28 05:01] LABS: Add Manual Diff / Slide Review NO; Basophils Absolute Auto 100 /uL (0-100); Basophils Percent Auto 0.4 % (0-2); Eosinophils Absolute Auto 0 /uL (0-450); Hematocrit 35.6 % (36-46); Hemoglobin 11.7 g/dL (12.0-16.0); Lymphocytes Absolute Auto 1500 /uL (1100-4500); Lymphocytes Percent Auto 8.3 % (25-40); Mean Corpuscular Hemoglobin 29.7 PG (26-34); Monocytes Absolute Auto 1000 /uL (0-900); Monocytes Percent Auto 5.4 % (3-14); Neutrophils Absolute Auto 15300 /uL (1500-7000); Neutrophils Percent Auto 85.9 % (50-75); Platelet Count 186 X10^3/uL (150-400); Red Blood Cell Count 3.96 X10^6/uL (4.0-5.2); Red Cell Distribution Width 14.2 % (11.6-14.8); White Blood Cell Count 17.8 X10^3/uL (4.5-11.0)
[2021-10-28 05:07] LABS: Alanine Aminotransferase 21 IU/L (<35); Albumin 2.7 g/dL (3.5-5.0); Alkaline Phosphatase 63 U/L (38-126); Aspartate Aminotransferase 37 IU/L (14-36); BUN Creatinine Ratio 23.9 (6-22); Bilirubin Total 0.8 mg/dL (0.2-1.3); Bilirubin Unconjugated 0.5 mg/dL (0.0-1.1); Blood Urea Nitrogen 26 mg/dL (7-17); Calcium 8.5 mg/dL (8.4-10.2); Carbon Dioxide 29 mmol/L (22-32); Chloride 108 mmol/L (98-107); Estimated Glomerular Filt Rate 48.3 mL/min (>60); Globulin 2.6 g/dL (1.7-4.1); Glucose 110 mg/dL (80-110); HEMOLYSIS < 15 (0-50); Potassium 3.4 mmol/L (3.4-5.1); Sodium 139 mmol/L (137-145); Total Protein 5.3 g/dL (6.3-8.2)
[2021-10-28] MEDS: levETIRAcetam 500 MG in SODIUM CHLORIDE 0.9% 100 ML 420 ML IV ×2 (08:38→20:17)
[2021-10-28] MEDS: VERAPAMIL SR 120 MG TABLET 240 MG PO (08:38)
[2021-10-28] MEDS: ONDANSETRON 4 MG/2 ML INJ IV (08:46)
[2021-10-28] MEDS: ACETAMINOPHEN 325 MG TABLET 650 MG PO (08:47)
[2021-10-28] MEDS: POTASSIUM CHLORIDE IN WATER 10 MEQ/100 ML PIGGYBACK 100 MEQ IV (09:52)
[2021-10-28] MEDS: MORPHINE 2 MG/ML INJ IV ×2 (11:36→15:09)
--- NOTE | 2021-10-28 13:39 | P.PN_ITS ---
Subjective Subjective Interval history: The patient reports good appetite. She states that she's been able to keep food down. She denies n/v/d. She reports good urine output. Surgery plans on likely removing drain tomorrow. Exam Vital Signs (past 8 hours): - 10/28/21 07:50 10/28/21 08:00 10/28/21 09:00 Temperature 97.5 F L Pulse Rate 73 Respiratory Rate 14 Blood Pressure 151/78 H Pulse Oximetry 96 96 96 10/28/21 11:32 10/28/21 12:00 10/28/21 12:26 Temperature 97.5 F L Pulse Rate 75 Respiratory Rate 14 Blood Pressure 116/70 Pulse Oximetry 91 95 95 Oxygen Delivery Method Nasal Cannula Oxygen Flow Rate 2 Narrative Exam Narrative: GEN: laying in bed comfortably upon my entering the room, in no apparent, acute distress HEENT: moist mucous membranes CV: RRR, S1 and S2 heart sounds normal, no extra heart sounds or murmurs appre ciated PULM: clear to auscultation bilaterally ABD: soft, non-tender, non-disteded, DEANA drain in place with small amout serosanguinous fluid EXT: warm and well-perfused with no edema NEURO: alert, and oriented to person and place, not time or situation Objective Labs Result Diagrams: 10/28/21 04:44 10/28/21 04:44 Labs: Laboratory Results - last 24 hr 10/28/21 10/28/21 04:44 04:44 WBC 17.8 H RBC 3.96 L Hgb 11.7 L Hct 35.6 L MCV 90.0 MCH 29.7 MCHC 33.0 RDW 14.2 Plt Count 186 Neut % (Auto) 85.9 H Lymph % (Auto) 8.3 L Cottle % (Auto) 5.4 Eos % (Auto) 0.0 L Baso % (Auto) 0.4 Neut # (Auto) 68908 H Lymph # (Auto) 1500 Cottle # (Auto) 1000 H Eos # (Auto) 0 Baso # (Auto) 100 Sodium 139 Potassium 3.4 Chloride 108 H Carbon Dioxide 29 BUN 26 H Creatinine 1.09 H Estimated GFR 48.3 L BUN/Creatinine Ratio 23.9 H Glucose 110 Calcium 8.5 Magnesium 2.0 Total Bilirubin 0.8 Conjugated Bilirubin 0.0 Unconjugated Bilirubin 0.5 AST 37 H ALT 21 Alkaline Phosphatase 63 Total Protein 5.3 L Albumin 2.7 L Globulin 2.6 Albumin/Globulin Ratio 1.0 PFSH Medical History Asthma CVA (cerebral vascular accident) Essential hypertension Paroxysmal atrial fibrillation 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 (CVA) Vascular dementia Surgical History H/O: hysterectomy History of bilateral knee replacement History of ERCP Social History household members: children Smoking Status: Never smoker alcohol intake: never Assessment & Plan Assessment & Plan narrative: 81W with PMH atrial fibrillation, prior stroke about 8 months ago with subsequent seizures, vascular dementia, essential hypertension, asthma, and recent history of cholecystitis 3 months ago who presents with 1 day of abdominal pain, nausea, and vomiting. 1. Acute on chronic cholecystitis with prior choledocholithiasis ?- Recent ERCP at [facility] with sphincterotomy, normal LFTs ?- zosyn for presumed cholecystitis despite abdominal ultrasound given + melton sign leukocytosis and presentation ?- WBC rising from 12 to 28, and then decreased post-op ?- underwent lap whitney on 10/27 ?- EKG without evidence of ischemia ?- morphine for pain control, zofran for nausea 2. paroxysmal atrial fibrillation ?- continue home verapamil ?- tele monitor ?- EKG with sinus rhythm, PVC and no evidence of acute ischemia 3. prior CVA with residual cognitive impairment and seizure disorder ?- continue IV keppra for seizure prevention 4. HTN ?- hold home lisinopril for now given normotension 5. Asthma ?- continue albuterol prn Code: DNR, surrogate decision maker is daughter Kayla Mortensen I have utilized all available immediate resources to obtain, update, or review the patient's current medications. Time Spent With Patient Critical Care time: I spent a total of [] minutes of critical care time on this patient's care today; this time is exclusive of procedural time. Quality VTE Deep Vein Thrombosis/Pulmonary Embolism Present on Admission: No MIPS - Admit I confirm the patient?s Advance Care Plan is present, Code status is documented, Surrogate decision maker is in patient?s record [If Yes, STOP here]: Yes
--- NOTE | 2021-10-28 14:10 | PT.IIE ---
Surgery Performed Operation Date: 10/27/21 10:30 Actual Procedures p Laparoscopic Cholecystectomy(Not Applicable) - Madeline Blair MD Medical History (Last Reviewed 10/27/21 @ 10:34 by Madeline Blair MD) Asthma CVA (cerebral vascular accident) Essential hypertension Paroxysmal atrial fibrillation 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 (CVA) Vascular dementia Physical Therapy Inpatient Evaluation/Re-Eval M1 PT/OT-IP Prior Functional Status Start: 10/28/21 17:24 Freq: NEEDED Status: Active Protocol: Document 10/28/21 14:10 AB (Rec: 10/28/21 17:34 AB [id number]) Medical Review Prior Functional Status Medical History Reviewed Yes Communication with confusion; unable to obtain much PLOF Mobility and Gait attempted to obtain PLOF and home set up but accuracy is doubtful; pt stated that she is independent with all mobilities and ambulation without AD; per nurse: pt's daughter is her caregiver at home. Social History Household Members children Living Arrangements House Number of Floors (Floors) One Floor Number of Stairs To Enter/Railing? no steps to enter Home Environment Standard Height Toilet,Walk in Shower M2 PT-IP Current Condition Start: 10/28/21 17:24 Freq: NEEDED Status: Active Protocol: Document 10/28/21 14:10 AB (Rec: 10/28/21 17:34 AB [id number]) Physical Therapy Current Condition Current Condition Evaluation Date 10/28/21 Treatment Diagnosis s/p Lap whitney; difficulty in walking Onset Date 10/26/21 M3 PT-IP Subjective Start: 10/28/21 17:24 Freq: NEEDED Status: Active Protocol: Document 10/28/21 14:10 AB (Rec: 10/28/21 17:34 AB [id number]) Subjective Physical Therapy Visit Type Type Initial Evaluation Visit Start Time 14:10 Visit Stop Time 14:50 Total Visit Minutes 40 Number of LUNG SPLITTER Visits 0 Physical Therapy Visit Comments Patient Comments requested to use the toilet M4 PT-IP Mobility and Gait Start: 10/28/21 17:24 Freq: NEEDED Status: Active Protocol: Document 10/28/21 14:10 AB (Rec: 10/28/21 17:34 AB [id number]) PT-Bed Mobility Assessment Supine to Sit Supine to Sit Maximum Assistance,1 Person Assistance PT-Transfer Assessment Sit to and From Stand Sit to and from Stand Maximum Assistance,1 Person Assistance,2 Person Assistance ,Use of Upper Extremities Equipment Transfer Assistive Device Gait Belt Orthotic/Prosthetic Devices or Brace: No Transfers Transfer Destination Chair,Bedside Commode Transfer Technique Stand Step Pivot Transfer Ability Level of Assist Maximum Assistance,1 Person Assistance,2 Person Assistance ,Use of Upper Extremities Comments Mobility Comments pt with confusion. pt requesting to use the toilet. BP supine: 111/54. completed supine to sit max A and max cues for log roll. pt required max A for sitting balance on EOB. (+) B UE tremors noted. BP: 121/67 completed sit to stand max A x 1-2 and max cues and step transfer to bedside commode using fWW max A x 1-2 and max cues. pt completed sit to stand from bedside commode max A x 1-2 and was able to maintain standing using FWW for support max A while NAC asssitted pt with hygiene care and brief management. instructed pt to transfer to chair and completed step transfer using FWW max A x 1-2 and max cues. positioned pt on chair. Call light and table placed within reach. Gait Assessment Comments Gait Comments unable at this time. PT-Balance Assessment Sitting Balance and Reactions Static Sitting Balance Ability Poor Dynamic Sitting Balance Ability Poor Standing Balance and Reactions Static Standing Balance Ability Poor Dynamic Standing Balance Ability Poor Device Used FWW M5 PT-IP Objective Assessments Start: 10/28/21 17:24 Freq: NEEDED Status: Active Protocol: Document 10/28/21 14:10 AB (Rec: 10/28/21 17:34 AB [id number]) Orientation Orientation/Cognition Level of Alertness Confusional State Orientation Name Safety Awareness Decreased Safety Awareness Memory Description Short Term Impaired,Assisted Impaired Gross Range of Motion Lower Extremity ROM Assessment Bilaterally Impaired Strength Lower Extremity Strength Hip 3+/5 Knee 3+/5 Muscle Tone Muscle Tone WNL Yes M6 PT-IP Treatment Start: 10/28/21 17:24 Freq: NEEDED Status: Active Protocol: Document 10/28/21 14:10 AB (Rec: 10/28/21 17:34 AB [id number]) Physical Therapy Treatment Education Education Provided Precautions,Safety M7 PT-IP Assessment and Plan Start: 10/28/21 17:24 Freq: NEEDED Status: Active Protocol: Document 10/28/21 14:10 AB (Rec: 02/15/22 17:34 AB [id number]) PT Summary Assessment and Plan Potential Rehabilitation Potential Fair Status of Condition at Evaluation Evolving Summary Impairments Pain,ROM,Strength,Balance, Coordination,Sensation,Tone, Cognition,Bed Mobility, Transfers,Gait,Activity Tolerance Assessment Summary Pt with confusion and requires max cues with all tasks. pt requiring max A x 1-2 with all mobilities and unable to ambulate at this time. d/c plan depending if pt's daughter will be able to assist pt at home but at this time will require SNF rehab to improve overall strength and mobility independence. Goals Bed Mobility Goal Minimal Assistance Transfer Goal Minimal Assistance,Front Wheeled Walker Gait Goal Minimal Assistance,Front Wheel Walker Gait Distance 50 Other Goals improve bed mobility, transfers and ambulation using FWW CGA ~ 100 ft Days to Meet Goals 10 Frequency of Treatment Frequency Of Treatment Once a Day Treatment Plan Physical Therapy Treatment Plan Bed Mobility Training,Transfer Training,Gait Training, Therapeutic Exercise,Balance Retraining,Post Op Education, Discharge Planning,Hot or Cold Pack,Neuromuscular Re-ed, Coordination Retraining,Manual Therapy Precautions Other Precautions falls Recommendations To Nursing Amount of Assist Needed 2 Person Assist Discharge Recommendations PT Discharge Recommendations SNF Rehab Transportation Needs at Discharge Wheelchair/Cabulance
[2021-10-28] MEDS: HEPARIN 5,000 UNIT/ML VIAL 5000 UNIT SUBCUT ×2 (15:08→22:34)
--- NOTE | 2021-10-28 15:30 | OT.IPNOTE ---
Pt refusing to get up for OT. Pt able to give permission for therapist to call her daughter for information. Prior pt's daughter assisted for all ADl needs MOD A and set-up for eating and grooming needs. To check on pt tomorrow for OT eval.
--- NOTE | 2021-10-28 15:33 | P.PN_ITS ---
Subjective Subjective Date Patient Seen: 10/28/21 Time Patient Seen: 13:30 Interval history: alert, no complaints Exam Vital Signs (past 8 hours): - 10/28/21 07:50 10/28/21 08:00 10/28/21 09:00 Temperature 97.5 F L Pulse Rate 73 Respiratory Rate 14 Blood Pressure 151/78 H Pulse Oximetry 96 96 96 10/28/21 11:32 10/28/21 12:00 10/28/21 12:26 Temperature 97.5 F L Pulse Rate 75 Respiratory Rate 14 Blood Pressure 116/70 Pulse Oximetry 91 95 95 10/28/21 15:28 Temperature Pulse Rate Respiratory Rate Blood Pressure Pulse Oximetry 94 Oxygen Delivery Method Nasal Cannula Oxygen Flow Rate 2 Narrative Exam Narrative: much more alet today. abdomen is benign, no bile in drain. Objective Labs Result Diagrams: 10/28/21 04:44 10/28/21 04:44 Labs: Laboratory Results - last 24 hr 10/28/21 10/28/21 04:44 04:44 WBC 17.8 H RBC 3.96 L Hgb 11.7 L Hct 35.6 L MCV 90.0 MCH 29.7 MCHC 33.0 RDW 14.2 Plt Count 186 Neut % (Auto) 85.9 H Lymph % (Auto) 8.3 L Wilkinson % (Auto) 5.4 Eos % (Auto) 0.0 L Baso % (Auto) 0.4 Neut # (Auto) 37078 H Lymph # (Auto) 1500 Wilkinson # (Auto) 1000 H Eos # (Auto) 0 Baso # (Auto) 100 Sodium 139 Potassium 3.4 Chloride 108 H Carbon Dioxide 29 BUN 26 H Creatinine 1.09 H Estimated GFR 48.3 L BUN/Creatinine Ratio 23.9 H Glucose 110 Calcium 8.5 Magnesium 2.0 Total Bilirubin 0.8 Conjugated Bilirubin 0.0 Unconjugated Bilirubin 0.5 AST 37 H ALT 21 Alkaline Phosphatase 63 Total Protein 5.3 L Albumin 2.7 L Globulin 2.6 Albumin/Globulin Ratio 1.0 PFSH Medical History Asthma CVA (cerebral vascular accident) Essential hypertension Paroxysmal atrial fibrillation 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 (CVA) Vascular dementia Surgical History H/O: hysterectomy History of bilateral knee replacement History of ERCP Social History household members: children Smoking Status: Never smoker alcohol intake: never Assessment & Plan Assessment & Plan narrative: If WBC near normal tomorrow, discharge home. remove drain prior to discharge. recommend 7 days total antibiotics and nutrition supplements Time Spent With Patient Critical Care time: I spent a total of [] minutes of critical care time on this patient's care today; this time is exclusive of procedural time. Quality VTE Deep Vein Thrombosis/Pulmonary Embolism Present on Admission: No
--- NOTE | 2021-10-28 19:20 | PC.NURSE ---
A&Ox1. Very confused and has aphasia. Grimacing with movement and able to articulate she was experiencing pain in her stomach but didn't know why she was having pain. Given PRN tylenol and morphine which helped the patient to sleep and appeared more comfortable. On 2L nasal cannula, sating in low to mis 90's. Not much of an appetite. Would have a few bites of her meals and then refuse to eat anymore. Dressings CDI. DEANA drain draining sanguineous fluid. Worked with PT and was able to get up to her chair for a while. 2 person full assist. Bed alarm on. Bed low, call light within reach.
[2021-10-29] VITALS (9 sets, daily range): BP systolic 106–169; BP diastolic 69–76; PULSE 55–81; RESP 14–18; TEMP 36.3–36.7; O2SAT 93–94
[2021-10-29] MEDS: PIPERACILLIN/TAZO 3.375 GM in SODIUM CHLORIDE 0.9% 100 ML 25 ML IV ×2 (03:25→10:17)
[2021-10-29 05:19] LABS: Add Manual Diff / Slide Review NO; Basophils Absolute Auto 0 /uL (0-100); Basophils Percent Auto 0.3 % (0-2); Eosinophils Absolute Auto 200 /uL (0-450); Eosinophils Percent Auto 1.5 % (2-4); Hematocrit 32.3 % (36-46); Hemoglobin 10.7 g/dL (12.0-16.0); Lymphocytes Absolute Auto 1300 /uL (1100-4500); Lymphocytes Percent Auto 12.5 % (25-40); Mean Corpuscular HGB Conc 33.2 % (30-36); Mean Corpuscular Hemoglobin 29.9 PG (26-34); Mean Corpuscular Volume 90.2 fL (80-100); Monocytes Absolute Auto 500 /uL (0-900); Monocytes Percent Auto 4.8 % (3-14); Neutrophils Absolute Auto 8400 /uL (1500-7000); Neutrophils Percent Auto 80.9 % (50-75); Platelet Count 179 X10^3/uL (150-400); Red Blood Cell Count 3.59 X10^6/uL (4.0-5.2); White Blood Cell Count 10.4 X10^3/uL (4.5-11.0)
[2021-10-29 05:24] LABS: Alanine Aminotransferase 17 IU/L (<35); Albumin 2.5 g/dL (3.5-5.0); Alkaline Phosphatase 62 U/L (38-126); Aspartate Aminotransferase 27 IU/L (14-36); BUN Creatinine Ratio 27.1 (6-22); Bilirubin Total 0.6 mg/dL (0.2-1.3); Bilirubin Unconjugated 0.5 mg/dL (0.0-1.1); Blood Urea Nitrogen 26 mg/dL (7-17); Carbon Dioxide 25 mmol/L (22-32); Chloride 113 mmol/L (98-107); Estimated Glomerular Filt Rate 55.9 mL/min (>60); Globulin 2.6 g/dL (1.7-4.1); Glucose 83 mg/dL (80-110); HEMOLYSIS < 15 (0-50); Magnesium 1.9 mg/dL (1.6-2.3); Potassium 3.2 mmol/L (3.4-5.1); Sodium 141 mmol/L (137-145); Total Protein 5.1 g/dL (6.3-8.2)
[2021-10-29] MEDS: HEPARIN 5,000 UNIT/ML VIAL 5000 UNIT SUBCUT (05:44)
[2021-10-29] MEDS: SODIUM CHLORIDE 0.9% 1,000 ML 75 ML IV (05:44)
[2021-10-29] MEDS: ONDANSETRON 4 MG/2 ML INJ IV ×2 (08:59→13:06)
[2021-10-29] MEDS: levETIRAcetam 500 MG in SODIUM CHLORIDE 0.9% 100 ML 420 ML IV (09:05)
[2021-10-29] MEDS: MORPHINE 2 MG/ML INJ IV ×2 (09:12→13:07)
[2021-10-29] MEDS: VERAPAMIL SR 120 MG TABLET 240 MG PO (09:16)
--- NOTE | 2021-10-29 10:06 | OT.IP.EVAL ---
Surgery Performed Operation Date: 10/27/21 10:30 Actual Procedures p Laparoscopic Cholecystectomy(Not Applicable) - Madeline Blair MD Past Medical History (Last Reviewed 10/27/21 @ 10:34 by Madeline Blair MD) Asthma CVA (cerebral vascular accident) Essential hypertension H/O: hysterectomy History of bilateral knee replacement History of ERCP Paroxysmal atrial fibrillation 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 (CVA) Vascular dementia Surgical History (Last Reviewed 10/27/21 @ 10:34 by Madeline Blair MD) H/O: hysterectomy History of bilateral knee replacement History of ERCP Occupational Therapy Inpatient Evaluation/Re-Eval M1 PT/OT-IP Prior Functional Status Start: 10/28/21 17:24 Freq: NEEDED Status: Active Protocol: Document 10/29/21 10:09 [facility] (Rec: 10/29/21 10:24 [facility] [id number]) Medical Review Prior Functional Status Medical History Reviewed Yes Communication with confusion; unable to obtain much PLOF Mobility and Gait Pt uses FWW downstairs and has a stair lift to get to the second level and then uses a 4ww to walk with. Activities of Daily Living and IADL's Per pt's daughter able to do grooming and eating needs after set-up and needing assist for all dressing, toileting, and bathing needs. Social History Household Members children Living Arrangements House Number of Floors (Floors) One Floor Number of Stairs To Enter/Railing? no steps to enter Home Environment High Toilet,Walk in Shower Home Equipment Front Wheel Walker,Four Wheel Walker,Straight Cane,Manual Wheelchair M2 OT-IP Current Condition Start: 10/29/21 10:08 Freq: Status: Active Protocol: Document 10/29/21 10:09 [facility] (Rec: 10/29/21 10:24 [facility] [id number]) Occupational Therapy Current Condition Current Condition Evaluation Date 10/29/21 Treatment Diagnosis s/p Lap Bebe, decreased mobility Diagnosis Onset Date 10/26/21 Post Operative Precautions Abdominal Surgery Precautions Log Roll,Lifting Restrictions, Gait Belt above Incisional Area M3 OT- IP Subjective and Pain Start: 10/29/21 10:08 Freq: Status: Active Protocol: Document 10/29/21 10:09 [facility] (Rec: 10/29/21 10:24 [facility] [id number]) OT- Subjective Occupational Therapy Visit Type Type Initial Evaluation Visit Start Time 09:47 Visit Stop Time 10:06 Total Visit Minutes 19 Occupational Therapy Visit Comments Patient Comments Pt initially not wanting to get up and then agreed when explained needing to see how she is moving so that she can go home when medically stable. Patient/Caregiver Goals TO go home. OT Pain Assessment Pain When Pain Assessed At Rest Pain Present Pain Present Pain Reported M4 OT- IP ADL's Start: 10/29/21 10:08 Freq: Status: Active Protocol: Document 10/29/21 10:09 [facility] (Rec: 10/29/21 10:24 [facility] [id number]) OT [id number] Comments OT Self-Feeding Comments NOt at meal time. OT ADL-Grooming Comments OT Grooming Comments Not performed. OT ADL-Oral Care Comments Oral Care Comments NOt performed. OT ADL-Dressing General Eval Lower Body Dressing Ability Maximum Assistance,Total Assistance Areas Needing Assistance Underpants/Brief,Socks OT ADL-Toileting General Evaluation Toileting Ability Total Assistance Areas Needing Assistance Manage Clothing,Perform Perineal Hygiene Comments OT Toileting Comments One person to stand pt with FWW MODA and another person to assist with hygiene and brief management needs. OT ADL-Bathing Comments OT Bathing Comments Not performed. Sponge is more appropriate at this time. M5 OT- IP IADL's Start: 10/29/21 10:08 Freq: Status: Active Protocol: Document 10/29/21 10:09 [facility] (Rec: 10/29/21 10:24 [facility] [id number]) OT-Instrumental Activities of Daily Living Home Safety Awareness Awareness of Need for Assistance at Home Decreased Awareness Ability to Problem Solve Emergency Unable to Problem Solve Situations M6 OT- IP Functional Cognition Start: 10/29/21 10:08 Freq: Status: Active Protocol: Document 10/29/21 10:09 [facility] (Rec: 10/29/21 10:24 [facility] [id number]) Cognitive Factors Limiting Selfcare Function Cognitive Ability Level of Alertness Alert,Confusional State Cognitive Comments Cognitive Assessment Comments Pt mainly just orientated to her name. Pt however able to express that behind her right ear was hurting. Pt needing concrete simple commands to follow. Nursing notified. M7 OT- IP Mobility and Balance Start: 10/29/21 10:08 Freq: Status: Active Protocol: Document 10/29/21 10:09 [facility] (Rec: 10/29/21 10:24 [facility] [id number]) OT- Bed Mobility Assessment Supine to Sit Supine to Sit Assist Maximum Assistance Sit to Supine Sit to Supine Assist Moderate Assistance OT-Transfer Assessment Sit to and From Stand Sit to and from Stand Moderate Assistance,Maximum Assistance Transfers Transfer Ability Moderate Assistance,Maximum Assistance,1 Person Assistance Technique Transfer Destination Bed,Bedside Commode Transfer Technique Stand Step Pivot Devices Transfer Assistive Devices Gait Belt,Front Wheeled Walker Comments Mobility Comments Step by step instruction for log rolling and MAXA to get upright and scoot forwards. MOD/MAXA x1 to stand to FWW and pt tends to lean on her heels. Assist to guide FWW and for her balance. Another person present for safety. OT- Gait Assessment Comments Gait Ability Comments just transfers OT- Balance Assessment Sitting Balance and Reactions Static Sitting Balance Ability Fair Dynamic Sitting Balance Ability Poor Standing Balance and Reactions Static Standing Balance Ability Poor Dynamic Standing Balance Ability Poor M8 OT- IP Objective Assessments Start: 10/29/21 10:08 Freq: Status: Active Protocol: Document 10/29/21 10:09 [facility] (Rec: 10/29/21 10:24 [facility] [id number]) OT Strength Comments Strength Comments At least 3-/5 during functional transfer. OT-Muscle Tone Assessment Muscle Tone WNL Yes M9 OT- IP Assessment and Plan Start: 10/29/21 10:08 Freq: Status: Active Protocol: Document 10/29/21 10:09 [facility] (Rec: 10/29/21 10:24 [facility] [id number]) OT Summary Assessment and Plan Potential Rehabilitation Potential Good Analytic Complexity at Evaluation Moderate Summary OT Impairments Pain,Strength,Balance, Functional Cognition, Functional Mobility,Grooming, Dressing,Toileting,Bathing, Toilet Transfers,Shower Transfers,Activity Tolerance Progress Towards Goals Slow Progress due to Pain,Slow Progress due to Medical Issues,Slow Progress due to Activity Tolerance,Slow Progress due to Cognition Assessment Summary Pt MOD complexity and main barriers are pain and now needing 1-2 person assist for all ADL and mobility needs. Pt would benefit from skilled rehab , however pt has a supportive family to assist her pending caregiver training . Goals Grooming Goal Standby Assistance Dressing Goal Moderate Assistance Toileting Goal Moderate Assistance Bathing Goal Moderate Assistance Toilet Transfer Goal Minimal Assistance Shower Transfer Goal Moderate Assistance Patient/Caregiver Education Goal Caregiver Independent Assisting Patient Days to Meet Goals 5 Frequency of Treatment Frequency Of Treatment Once a Day Treatment Plan OT Treatment Plan ADL Training,Functional Cognition Training,Functional Mobility,Patient/Family Education,Discharge Planning Discharge Recommendations OT Discharge Recommendations Home with 05/04 Assist Available,Home Health,SNF Rehab,Home vs SNF Transportation Needs at Discharge Private Vehicle,Wheelchair/ Cabulance
[2021-10-29] MEDS: POTASSIUM CHLORIDE 20 MEQ TAB 40 MEQ PO (10:10)
--- NOTE | 2021-10-29 12:45 | PT-IP ANOTE ---
checked pt this morning but refused PT. stated that she does not want to move or get up. will f/u.
--- NOTE | 2021-10-29 12:55 | P.PN_ITS ---
Subjective Subjective Interval history: Patient reports feeling well this morning. She denies any acute complaints. She denies abd pain, n/v/d. She endorses keeping food down and passing gas. She would like to go home today. Exam Vital Signs (past 8 hours): - 10/29/21 05:00 10/29/21 07:49 10/29/21 09:00 Temperature 98.0 F 97.4 F L Pulse Rate 55 L 62 Respiratory Rate 18 14 Blood Pressure 169/72 H 158/76 H Pulse Oximetry 94 94 93 10/29/21 11:57 Temperature 97.4 F L Pulse Rate 81 Respiratory Rate 14 Blood Pressure 106/69 Pulse Oximetry 94 Oxygen Delivery Method Nasal Cannula Oxygen Flow Rate 2 Narrative Exam Narrative: GEN: laying in bed comfortably upon my entering the room, in no apparent, acute distress HEENT: moist mucous membranes CV: RRR, S1 and S2 heart sounds normal, no extra heart sounds or murmurs appreciated PULM: clear to auscultation bilaterally ABD: soft, non-tender, non-distended, DEANA drain in place with small amount of serosanguinous fluid EXT: warm and well-perfused with no edema NEURO: alert, and oriented to person and place, not time or situation Objective Labs Result Diagrams: 10/29/21 04:44 10/29/21 04:44 Labs: Laboratory Results - last 24 hr 10/29/21 10/29/21 04:44 04:44 WBC 10.4 RBC 3.59 L Hgb 10.7 L Hct 32.3 L MCV 90.2 MCH 29.9 MCHC 33.2 RDW 14.0 Plt Count 179 Neut % (Auto) 80.9 H Lymph % (Auto) 12.5 L [place] % (Auto) 4.8 Eos % (Auto) 1.5 L Baso % (Auto) 0.3 Neut # (Auto) 8400 H Lymph # (Auto) 1300 [place] # (Auto) 500 Eos # (Auto) 200 Baso # (Auto) 0 Sodium 141 Potassium 3.2 L Chloride 113 H Carbon Dioxide 25 BUN 26 H Creatinine 0.96 Estimated GFR 55.9 L BUN/Creatinine Ratio 27.1 H Glucose 83 Calcium 8.0 L Magnesium 1.9 Total Bilirubin 0.6 Conjugated Bilirubin 0.0 Unconjugated Bilirubin 0.5 AST 27 ALT 17 Alkaline Phosphatase 62 Total Protein 5.1 L Albumin 2.5 L Globulin 2.6 Albumin/Globulin Ratio 1.0 [facility] Medical History Asthma CVA (cerebral vascular accident) Essential hypertension Paroxysmal atrial fibrillation 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 (CVA) Vascular dementia Surgical History H/O: hysterectomy History of bilateral knee replacement History of ERCP Social History household members: children Smoking Status: Never smoker alcohol intake: never Assessment & Plan Assessment & Plan narrative: 81W with PMH atrial fibrillation, prior stroke about 8 months ago with subsequent seizures, vascular dementia, essential hypertension, asthma, and recent history of cholecystitis 3 months ago who presents with 1 day of abdominal pain, nausea, and vomiting. 1. Acute on chronic cholecystitis with prior choledocholithiasis, status post laparoscopic cholecystectomy on October 27, 2021 ?- Recent ERCP at [facility] with sphincterotomy, normal LFTs ?- Clinically improved on IV Zosyn inpatient?- Will discharge with PO Ciprofloxacin 500 mg bid and PO Flagyl 500 mg tid for 5 more days of antibiotic therapy outpatient 2. Paroxysmal atrial fibrillation ?- Continue home verapamil ?- After risk/benefit conversation with patient and her family, decision was made to not start anticoagulation due to risks 3. 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 HTN ?- Continue home low-dose lisinopril 5. Asthma ?- Continue home albuterol PRN Time Spent With Patient Critical Care time: I spent a total of [] minutes of critical care time on this patient's care today; this time is exclusive of procedural time. Quality VTE Deep Vein Thrombosis/Pulmonary Embolism Present on Admission: No
--- NOTE | 2021-10-29 13:00 | PM.DS.1 ---
History of Present Illness History of Present Illness Chief complaint: Issues with galbladder Narrative: This is an 81-year-old female with the past medical history of atrial fibrillation, prior stroke about 8 months ago with subsequent seizures, vascular dementia, essential hypertension, asthma, and recent history of cholecystitis 3 months ago who presents with 1 day of abdominal pain, nausea, and vomiting.? Abdominal pain is epigastric and right upper quadrant, with some radiation into the right neck.? It is worse after eating and she develops nausea.? She has had nothing to eat today.? Months ago the patient presented with similar symptoms and was found to have acute cholecystitis with biliary dilatation.? She was transferred to the Located within [facility] where the patient improved on antibiotic therapy and was discharged home before any procedures were performed.? Plan was for outpatient ERCP and cholecystectomy.? The patient recently had an ERCP it sounds like at [facility] where multiple stones were seen and sludge was removed and she had what sounds like a sphincterotomy.? Records are not available for review at this time.? The plan was for a surgical resection of her gallbladder after surgery.? Early this morning, the patient began to have significant nausea with emesis.? She normally has nausea and actually has lost quite a bit of weight due to fear of pain and nausea after eating, but she had not had any recent vomiting until today.? The patient has had some memory issues since her stroke, and much of this history is obtained from her daughter who was at bedside.? The patient denies any fevers, chills, chest pain, shortness of breath.? She reports no lower extremity edema, dysuria, or urinary frequency recently.? Does have constipation but no diarrhea.? She reports no recent seizure activity. In the emergency room, the patient was mildly hypertensive but the remainder of her vital signs are unremarkable.? Laboratory evaluation revealed a mild leukocytosis with WBC 12.8, but the remainder of her CBC was unremarkable.? Chemistries showed a creatinine of 1.07 which is somewhat improved from her prior ER visit when she had acute cholecystitis.? Further chemistries were unremarkable.? Her urinalysis was not indicative of infection and was slightly contaminated.? COVID-19 testing is negative. Discharge Providers Provider Date of admission: 10/26/21 14:21 Discharge Date: 10/29/21 Primary care physician: Nasreen Najera, DO Consults: 10/26/21 14:35 Consult to Physician Routine Comment: Consulting Provider: Dom Hurst Reason for consultation: Cholelithiasis Has provider been notified: Yes 10/28/21 10:14 Consult to Occupational Therapy Evaluate & Treat Comment: Physician Instructions: Evaluate and treat Consult to Physical Therapy Evaluate & Treat Comment: Physician Instructions: Evaluate and Treat Discharge provider: Justina Ross MD Summary Hospital Course Discharge Diagnosis: 81W with PMH atrial fibrillation, prior stroke about 8 months ago with subsequent seizures, vascular dementia, essential hypertension, asthma, and recent history of cholecystitis 3 months ago who presents with 1 day of abdominal pain, nausea, and vomiting. 1. Acute on chronic cholecystitis with prior choledocholithiasis, status post laparoscopic cholecystectomy on October 27, 2021 ?- Recent ERCP at [facility] with sphincterotomy, normal LFTs ?- Clinically improved on IV Zosyn inpatient - Will discharge with PO Ciprofloxacin 500 mg bid and PO Flagyl 500 mg tid for 5 more days of antibiotic therapy outpatient 2. Paroxysmal atrial fibrillation ?- Continue home verapamil ?- After risk/benefit conversation with patient and her family, decision was made to not start anticoagulation due to risks 3. 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 HTN ?- Continue home low-dose lisinopril 5. Asthma ?- Continue home albuterol PRN Exam Vital Signs (past 8 hours): - 10/29/21 07:49 10/29/21 09:00 10/29/21 11:57 Temperature 97.4 F L 97.4 F L Pulse Rate 62 81 Respiratory Rate 14 14 Blood Pressure 158/76 H 106/69 Pulse Oximetry 94 93 94 Oxygen Delivery Method Nasal Cannula Oxygen Flow Rate 2 Objective Labs Result Diagrams: 10/29/21 04:44 10/29/21 04:44 Labs: Laboratory Results - last 24 hr 10/29/21 10/29/21 04:44 04:44 WBC 10.4 RBC 3.59 L Hgb 10.7 L Hct 32.3 L MCV 90.2 MCH 29.9 MCHC 33.2 RDW 14.0 Plt Count 179 Neut % (Auto) 80.9 H Lymph % (Auto) 12.5 L [place] % (Auto) 4.8 Eos % (Auto) 1.5 L Baso % (Auto) 0.3 Neut # (Auto) 8400 H Lymph # (Auto) 1300 [place] # (Auto) 500 Eos # (Auto) 200 Baso # (Auto) 0 Sodium 141 Potassium 3.2 L Chloride 113 H Carbon Dioxide 25 BUN 26 H Creatinine 0.96 Estimated GFR 55.9 L BUN/Creatinine Ratio 27.1 H Glucose 83 Calcium 8.0 L Magnesium 1.9 Total Bilirubin 0.6 Conjugated Bilirubin 0.0 Unconjugated Bilirubin 0.5 AST 27 ALT 17 Alkaline Phosphatase 62 Total Protein 5.1 L Albumin 2.5 L Globulin 2.6 Albumin/Globulin Ratio 1.0 [facility] Medical History Asthma CVA (cerebral vascular accident) Essential hypertension Paroxysmal atrial fibrillation 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 (CVA) Vascular dementia Surgical History H/O: hysterectomy History of bilateral knee replacement History of ERCP Social History household members: children Smoking Status: Never smoker alcohol intake: never Discharge Assessment & Plan Assessment and Plan Assessment: 81W with H atrial fibrillation, prior stroke about 8 months ago with subsequent seizures, vascular dementia, essential hypertension, asthma, and recent history of cholecystitis 3 months ago who presents with 1 day of abdominal pain, nausea, and vomiting. 1. Acute on chronic cholecystitis with prior choledocholithiasis, status post laparoscopic cholecystectomy on October 27, 2021 ?- Recent ERCP at [facility] with sphincterotomy, normal LFTs ?- Clinically improved on IV Zosyn inpatient - Will discharge with PO Ciprofloxacin 500 mg bid and PO Flagyl 500 mg tid for 5 more days of antibiotic therapy outpatient 2. Paroxysmal atrial fibrillation ?- Continue home verapamil ?- After risk/benefit conversation with patient and her family, decision was made to not start anticoagulation due to risks 3. 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 HTN ?- Continue home low-dose lisinopril 5. Asthma ?- Continue home albuterol PRN Discharge Plan Discharge Plan Patient Disposition: Home Discharge orders & Medications Prescriptions: New ciprofloxacin HCl 500 mg tablet 500 mg PO BID 5 Days Qty: 10 0RF metronidazole 500 mg tablet 500 mg PO TID 5 Days Qty: 15 0RF Continued albuterol sulfate 90 mcg/actuation HFA aerosol inhaler 2 puff INHALATION DAILY 0RF ondansetron 4 mg tablet,disintegrating 4 mg translingual Q8H PRN (Reason: Nausea) 0RF lidocaine 5 % adhesive patch,medicated 1 patch transdermal BID PRN (Reason: Pain (Scale Score 4-6)) 0RF dronabinol 2.5 mg capsule 2.5 mg PO BID 0RF verapamil 240 mg tablet extended release 240 mg PO DAILY 0RF aspirin 81 mg Tablet 81 mg PO DAILY 0RF levetiracetam 250 mg tablet 500 mg PO BID 0RF calcitonin (salmon) 200 unit/actuation spray,non-aerosol 1 spray intranasal DAILY 0RF lisinopril 2.5 mg tablet 2.5 mg PO QPM 0RF Rx Instructions: sliding dose: less than 100 = 0; 100-140 = 2.5mg, greater than 140 =5mg Follow up/Referrals: Nasreen Najera DO [Primary Care Provider] - Discharge Data Primary Care Provider: Nasreen Najera Attending Provider: Arian Aggarwal VTE Deep Vein Thrombosis/Pulmonary Embolism Present on Admission: No
--- NOTE | 2021-10-29 15:36 | PC.NURSE ---
Pt is A&Ox1, pleasant. She reports feeling nauseated this morning and c/o abdominal pain. She is medicated with PRN zofran and morphine with good effect but still with very poor appetite. MD Blair ordered to remove DEANA drain from RLQ, scant serosangenous out put. Lap sites c/d/I/. She has hypoactive BS+x4. Able to call for assist to the [facility], but very weak gait requiring 1-2 people for assistance. Potassium is replaced per orders. clears patient to discharge home today with daughter. Kayla verbalizes understanding of activity, site care, medications, and plan of care. She discharges via wheel chair to private vehicle with daughter at approximately 1345.
[2021-10-31 14:36] LABS: Levetiracetam Keppra 34.6 ug/mL (10.0-40.0)
== END 2021-10-29 13:45 | disposition home or self-care (01) ==
LOC: ED 14:21 → AC 10-27 07:14
PROVIDERS: Surgery; Admitting Provider Internal Medicine; Emergency Provider Emergency Medicine; PCP Internal Medicine; Referring Provider Emergency Medicine; Visit Provider Internal Medicine
PROC: 0FT44ZZ Resection of Gallbladder, Percutaneous Endoscopic Approach (ICD-10-PCS; CPT 47562; principal; 2021-10-27 10:30)
DX: K81.0 Acute cholecystitis (principal); K82.A2 Perforation of gallbladder in cholecystitis; J45.909 Unspecified asthma, uncomplicated; I10 Essential (primary) hypertension; I48.0 Paroxysmal atrial fibrillation; I69.398 Other sequelae of cerebral infarction; F01.50 Vascular dementia, unspecified severity, without behavioral disturbance, psychotic disturbance, mood disturbance, and anxiety
CPT/HCPCS: 47562; 36415; 76705; 80048; 80053; 80076; 80177; 81003; 81015; 83690; 83735; 85025; 87635; 93005; 93010; 94760; 97162; 97166; 97530; 99225; 99284; C9803; G0378; J0171; J1644; J1953; J2270; J2405; J2543; J2704; J3010; J3475; J7613

== ENCOUNTER 2022-04-25 11:38 | Inpatient (IN) | payer MEDICARE, OTHER, SELFPAY ==
[2021-10-26 14:27] VITALS: BMI 22.6
[2022-04-25] VITALS (17 sets, daily range): BP systolic 111–153; BP diastolic 56–88; PULSE 89–122; RESP 18–27; TEMP 36.9–38.1; O2SAT 90–97; BMI 19.5
--- NOTE | 2022-04-25 11:48 | DI.RAD.S_ITS ---
PROCEDURE: XR CHEST 1V INDICATIONS: shortness of breath TECHNIQUE: One view of the chest was acquired. COMPARISON: [facility], , XR CHEST 1V, 08/17/2021, 11:49. FINDINGS: Surgical changes and devices: Left proximal humeral hardware is partially seen. Cholecystectomy clips are seen. Lungs and pleura: Low lung volumes are noted. This causes a crowded appearance to the lung markings and limits evaluation. On this semiupright portable chest examination, no large pneumothorax or large pleural effusions are seen. No focal infiltrates are seen. Mediastinum: Mediastinal contours appear normal. Heart size is normal. Atherosclerotic calcification of the aortic arch is noted. Bones and chest wall: No suspicious bony lesions. Age-appropriate bony degenerative changes are seen. Overlying soft tissues appear unremarkable. IMPRESSION: Limited portable chest examination, without a significant cardiopulmonary abnormality identified. Postoperative and degenerative changes are seen. Dictated by: Nico Toth M.D. on 04/25/2022 at 11:48 Approved by: Nico Toth M.D. on 04/25/2022 at 11:49
[2022-04-25 12:05] LABS: COVID19 -Nasal RAPID POSITIVE (Negative)
[2022-04-25 12:23] LABS: Add Manual Diff / Slide Review NO; Basophils Absolute Auto 0 /uL (0-100); Basophils Percent Auto 0.6 % (0-2); Eosinophils Absolute Auto 0 /uL (0-450); Hematocrit 40.6 % (36-46); Hemoglobin 13.5 g/dL (12.0-16.0); Lymphocytes Absolute Auto 1300 /uL (1100-4500); Mean Corpuscular HGB Conc 33.3 % (30-36); Mean Corpuscular Hemoglobin 28.8 PG (26-34); Mean Corpuscular Volume 86.6 fL (80-100); Monocytes Absolute Auto 800 /uL (0-900); Monocytes Percent Auto 10.5 % (3-14); Neutrophils Absolute Auto 5600 /uL (1500-7000); Neutrophils Percent Auto 71.9 % (50-75); Platelet Count 142 X10^3/uL (150-400); Red Blood Cell Count 4.69 X10^6/uL (4.0-5.2); Red Cell Distribution Width 14.1 % (11.6-14.8); White Blood Cell Count 7.7 X10^3/uL (4.5-11.0)
--- NOTE | 2022-04-25 12:36 | ED_ITS ---
HPI - SOB/Dyspnea General Chief Complaint: Altered Mental Status Stated Complaint: Confusion, covid (+) Time Seen by Provider: 04/25/22 11:46 Source: EMS Mode of arrival: EMS Limitations: altered mental status History of Present Illness HPI Narrative: Patient is an 82-year-old female history of paroxysmal atrial fibrillation, CVA, hypertension mild dementia presenting today with a positive COVID test in increased confusion and hypoxia. She apparently lives with daughter who states that she is more confused than normal where. EMS reports that she required 6 L of O2 here she is requiring 2-3 L. She is able to provide some history. She has a wet productive cough. But no respiratory distress. According the daughter they were exposed at a last week. Yesterday patient woke up with sore throat and low fever. She was also incontinent of urine which is unlike her. This morning she was unable to follow commands, she checked her oxygen was 86% at home. They got a prescription for paxlovid however she did not receive any of it because she received Zofran yesterday her she threw up once. She did not get her Keppra this morning. Related Data Home Medications Medication Instructions Recorded Confirmed aspirin 81 mg tablet 81 mg PO DAILY 08/17/21 04/25/22 calcitonin (salmon) 200 1 spray intranasal DAILY 08/17/21 04/25/22 unit/actuation nasal spray levetiracetam 250 mg tablet 500 mg PO BID 08/17/21 04/25/22 lisinopril 2.5 mg tablet 2.5 mg PO QPM PRN Hypertension 08/17/21 04/25/22 verapamil 240 mg tablet,extended 240 mg PO DAILY 08/17/21 10/26/21 release albuterol sulfate 90 mcg/actuation 2 puff inhalation DAILY PRN 10/26/21 04/25/22 aerosol inhaler Shortness Of Breath Or Wheezing dronabinol 2.5 mg capsule 2.5 mg PO BID 10/26/21 04/25/22 lidocaine 5 % topical patch 1 patch transdermal BID PRN Pain 10/26/21 04/25/22 (Scale Score 4-6) ondansetron 4 mg disintegrating 4 mg translingual Q8H PRN Nausea 10/26/21 04/25/22 tablet verapamil 240 mg tablet,extended 240 mg PO DAILY 04/25/22 04/25/22 release Allergies Allergy/AdvReac Type Severity Reaction Status Date / Time Penicillins AdvReac Unverified 10/27/21 16:50 Review of Systems Review of Systems ROS Unobtainable: Unobtainable due to medical condition Patient History Medical History Asthma CVA (cerebral vascular accident) Essential hypertension Paroxysmal atrial fibrillation 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 (CVA) Vascular dementia Surgical History H/O: hysterectomy History of bilateral knee replacement History of ERCP Social History household members: children Smoking Status: Never smoker alcohol intake: never Smoking Status: Never smoker Substance Use Type: does not use Exam Initial Vital Signs Initial Vital Signs: Vital Signs Pulse Rate 122 H 04/25/22 11:50 Respiratory Rate 24 04/25/22 11:50 Pulse Oximetry 93 04/25/22 11:50 GENERAL: Alert 82-year-old female mildly and he is not able to follow commands HEENT: Head atraumatic,EOMI, pupils reactive, face symmetric, moist mucous membranes CARDIOVASCULAR: Regular rate and rhythm without minimal respiratory distress ABDOMEN: Soft, nontender. Normoactive bowel sounds all 4 quadrants. No guarding or rebound. EXTREMITIES: Normal range of motion, no clubbing or edema. Neurovascularly intact NEUROLOGICAL: Alert and oriented x1 moving all extremities SKIN: Warm, dry, no laceration, no petechiae, no rashes or lesions. Course Orders Ordered: Acetaminophen (Acetaminophen 325 Mg Tablet) 650 mg PO Q6HR PRN PRN Reason: Fever/Mild Pain (1-3) Dexamethasone (Dexamethasone 10 Mg/Ml Vial) 6 mg IV DAILY COUNT INCLUDES THE [facility] Heparin Sodium (Porcine) (Heparin 5,000 Unit/Ml Vial) 5,000 unit SUBCUT BID COUNT INCLUDES THE [facility] Last Admin: 04/25/22 20:44 Dose: 5,000 unit Documented By: JUANITO Remdesivir 100 mg/ Sodium (Chloride) 250 mls @ 250 mls/hr IV DAILY COUNT INCLUDES THE [facility] Stop: 04/29/22 09:59 Levetiracetam 500 mg/ Sodium (Chloride) 105 mls @ 420 mls/hr IV Q12H RAYMUNDO Last Admin: 04/25/22 20:44 Dose: 420 mls/hr Documented By: JUANITO Sodium Chloride (Normal Saline 0.9%) 1,000 mls @ 60 mls/hr IV CONT COUNT INCLUDES THE [facility] Last Admin: 04/25/22 20:44 Dose: 60 mls/hr Documented By: JUANITO Ondansetron HCl (Ondansetron 4 Mg/2 Ml Inj) 4 mg IV Q8HR PRN PRN Reason: Nausea And Vomiting Last Admin: 04/25/22 17:11 Dose: 4 mg Documented By: OBI Pantoprazole Sodium (Pantoprazole Dr 20 Mg Tablet) 20 mg PO 0600 COUNT INCLUDES THE [facility] Discontinued Medications Dexamethasone (Dexamethasone 10 Mg/Ml Vial) 6 mg IV NOW ONE Stop: 04/25/22 12:58 Last Admin: 04/25/22 13:44 Dose: 6 mg Documented By: MARKEL Enoxaparin Sodium (Enoxaparin 40 Mg/0.4 Ml Syringe) 40 mg SUBCUT DAILY COUNT INCLUDES THE [facility] Last Admin: 04/25/22 17:11 Dose: 40 mg Documented By: OBI Remdesivir 200 mg/ Sodium (Chloride) 250 mls @ 250 mls/hr IV NOW ONE Stop: 04/25/22 12:58 Last Infusion: 04/25/22 15:35 Dose: 0 mls/hr Documented By: Admin: 04/25/22 13:44 Dose: 250 mls/hr Documented By: AT Vital Signs Vital signs: Vital Signs - 8 hr 04/25/22 13:16 04/25/22 13:16 04/25/22 13:30 Pulse Rate 99 H Respiratory Rate 22 Blood Pressure 142/63 H 133/71 Pulse Oximetry 95 04/25/22 13:30 Pulse Rate 103 H Respiratory Rate 25 H Blood Pressure Pulse Oximetry 90 L MDM - SOB/Dyspnea Lab Data Result diagrams: 04/25/22 12:10 04/25/22 12:10 Labs: Lab Results 04/25/22 04/25/22 04/25/22 Range/Units 11:44 12:10 12:10 WBC 7.7 (4.5-11.0) X10^3/uL RBC 4.69 (4.0-5.2) X10^6/uL Hgb 13.5 (12.0-16.0) g/dL Hct 40.6 (36-46) % MCV 86.6 (80-100) fL MCH 28.8 (26-34) PG MCHC 33.3 (30-36) % RDW 14.1 (11.6-14.8) % Plt Count 142 L (150-400) X10^3/uL Neut % (Auto) 71.9 (50-75) % Lymph % (Auto) 17.0 L (25-40) % [place] % (Auto) 10.5 (3-14) % Eos % (Auto) 0.0 L (2-4) % Baso % (Auto) 0.6 (0-2) % Neut # (Auto) 5600 (1753-8113) /uL Lymph # (Auto) 1300 (5879-0542) /uL [place] # (Auto) 800 (0-900) /uL Eos # (Auto) 0 (0-450) /uL Baso # (Auto) 0 (0-100) /uL Sodium 133 L (137-145) mmol/L Potassium 4.0 (3.4-5.1) mmol/L Chloride 97 L (98-107) mmol/L Carbon Dioxide 28 (22-32) mmol/L BUN 22 H (7-17) mg/dL Creatinine 1.22 H (0.52-1.04) mg/dL Estimated GFR 45 L (>60) mL/min BUN/Creatinine Ratio 18.0 (6-22) Glucose 93 (80-110) mg/dL Lactate (0.7-2.1) mmol/L Calcium 9.1 (8.4-10.2) mg/dL Total Bilirubin 0.4 (0.2-1.3) mg/dL AST 31 (14-36) IU/L ALT 13 (<35) IU/L Alkaline Phosphatase 86 (38-126) U/L Total Creatine Kinase (30-135) U/L CK-MB (CK-2) CK-MB (CK-2) Rel Index Troponin I (0.01-0.034) ng/mL NT-Pro-B Natriuret Pep (<450) pg/mL Total Protein 6.9 (6.3-8.2) g/dL Albumin 3.8 (3.5-5.0) g/dL Globulin 3.1 (1.7-4.1) g/dL Albumin/Globulin Ratio 1.2 (1.0-2.8) Procalcitonin (<0.5) ng/mL SARS-CoV-2 (PCR) Positive H (Negative) 04/25/22 04/25/22 04/25/22 Range/Units 12:10 12:10 12:10 WBC (4.5-11.0) X10^3/uL RBC (4.0-5.2) X10^6/uL Hgb (12.0-16.0) g/dL Hct (36-46) % MCV (80-100) fL MCH (26-34) PG MCHC (30-36) % RDW (11.6-14.8) % Plt Count (150-400) X10^3/uL Neut % (Auto) (50-75) % Lymph % (Auto) (25-40) % [place] % (Auto) (3-14) % Eos % (Auto) (2-4) % Baso % (Auto) (0-2) % Neut # (Auto) (6592-9114) /uL Lymph # (Auto) (4778-4299) /uL [place] # (Auto) (0-900) /uL Eos # (Auto) (0-450) /uL Baso # (Auto) (0-100) /uL Sodium (137-145) mmol/L Potassium (3.4-5.1) mmol/L Chloride (98-107) mmol/L Carbon Dioxide (22-32) mmol/L BUN (7-17) mg/dL Creatinine (0.52-1.04) mg/dL Estimated GFR (>60) mL/min BUN/Creatinine Ratio (6-22) Glucose (80-110) mg/dL Lactate 2.0 (0.7-2.1) mmol/L Calcium (8.4-10.2) mg/dL Total Bilirubin (0.2-1.3) mg/dL AST (14-36) IU/L ALT (<35) IU/L Alkaline Phosphatase (38-126) U/L Total Creatine Kinase 42 (30-135) U/L CK-MB (CK-2) TNP CK-MB (CK-2) Rel Index TNP Troponin I < 0.012 (0.01-0.034) ng/mL NT-Pro-B Natriuret Pep 3220 H (<450) pg/mL Total Protein (6.3-8.2) g/dL Albumin (3.5-5.0) g/dL Globulin (1.7-4.1) g/dL Albumin/Globulin Ratio (1.0-2.8) Procalcitonin 0.28 (<0.5) ng/mL SARS-CoV-2 (PCR) (Negative) Imaging Data Chest x-ray: Radiologist's Impression: [address] [place] [id number] XRay Report Signed Patient: Rose Mary Bello MR#: [id number] : 1940 Acct:[id number] Age/Sex: 82 / F Date of Service: 04/25/22 Loc: ED Accession Number: [id number] ?? Procedure: XR chest 1V Ordering Provider: Mena Gloria D.O. PROCEDURE:? XR CHEST 1V ? INDICATIONS:? shortness of breath ? TECHNIQUE:? One view of the chest was acquired.? ? COMPARISON:? [facility], , XR CHEST 1V, 08/17/2021, 11:49. ? FINDINGS:? ? Surgical changes and devices:? Left proximal humeral hardware is partially seen. Cholecystectomy clips are seen.? ? Lungs and pleura:? Low lung volumes are noted. This causes a crowded appearance to the lung markings and limits evaluation.? On this semiupright portable chest examination, no large pneumothorax or large pleural effusions are seen.? No focal infiltrates are seen.? ? Mediastinum:? Mediastinal contours appear normal.? Heart size is normal.? Atherosclerotic calcification of the aortic arch is noted.? ? Bones and chest wall:? No suspicious bony lesions.? Age-appropriate bony degenerative changes are seen. ? Overlying soft tissues appear unremarkable.? ? ? IMPRESSION:? ? Limited portable chest examination, without a significant cardiopulmonary abnormality identified.? ? Postoperative and degenerative changes are seen.? ? ? Dictated by: Nico Toth M.D. on 04/25/2022 at 11:48 ? ECG Data Interpretation: Sinus rhythm rate 92 WV interval 160 QRS 80 QTC 450 low voltage PACs noted no obvious ST changes MDM Narrative Medical decision making narrative: Patient has been diagnosed with COVID now requiring oxygen. She sounds wet and difficulty managing secretions. I have spoken to daughter who was receptive to her receiving remdesivir and dexamethasone. X-ray at this time does not show pneumonia. Blood work is surprisingly overall reassuring. She has no leukocytosis or elevated lactic acid. Creatinine is slightly elevated at 1.2 baseline seems to be around 1. She is found to have a elevated BNP of 3200 with a negative troponin no known history of CHF. Urine is actually positive for nitrates as well. Dr. Lucio accepts patient Discharge Plan Departure Patient Disposition: Admitted As Inpatient Clinical Impression: COVID-19, Acute UTI Admit Date/Time: 04/25/22 13:32 Admit Provider: Vaishnavi Lucio
[2022-04-25 12:37] LABS: Creatine Kinase 42 U/L (30-135)
[2022-04-25 12:38] LABS: Alanine Aminotransferase 13 IU/L (<35); Albumin 3.8 g/dL (3.5-5.0); Albumin Globulin Ratio 1.2 (1.0-2.8); Alkaline Phosphatase 86 U/L (38-126); Aspartate Aminotransferase 31 IU/L (14-36); Bilirubin Total 0.4 mg/dL (0.2-1.3); Blood Urea Nitrogen 22 mg/dL (7-17); Calcium 9.1 mg/dL (8.4-10.2); Carbon Dioxide 28 mmol/L (22-32); Chloride 97 mmol/L (98-107); Estimated Glomerular Filt Rate 45 mL/min (>60); Globulin 3.1 g/dL (1.7-4.1); Glucose 93 mg/dL (80-110); HEMOLYSIS < 15 (0-50); Sodium 133 mmol/L (137-145); Total Protein 6.9 g/dL (6.3-8.2)
[2022-04-25 12:50] LABS: Troponin I < 0.012 ng/mL (0.01-0.034)
[2022-04-25 12:55] LABS: Procalcitonin 0.28 ng/mL (<0.5)
[2022-04-25 13:19] LABS: NT-proBNP (BNP-Adult 18+) 3220 pg/mL (<450)
[2022-04-25] MEDS: DEXAMETHASONE 10 MG/ML VIAL 6 MG IV (13:44)
[2022-04-25] MEDS: REMDESIVIR 200 MG in SODIUM CHLORIDE 0.9% 210 ML 250 MG IV (13:44)
[2022-04-25 14:08] LABS: Appearance Urine UA CLEAR; Bilirubin Urine UA NEGATIVE (NEGATIVE); Color Urine UA YELLOW; Glucose Urine UA 1+ g/dL (Negative); Ketones Urine UA NEGATIVE (NEGATIVE); Leukocyte Esterase Urine UA 1+ (NEGATIVE); Nitrite Urine UA POSITIVE (Negative); Occult Blood Urine UA TRACE-LYSED (Negative); Protein Urine UA NEGATIVE (Negative); Specific Gravity Urine UA 1.015 (1.000-1.035); Urobilinogen Urine UA 0.2 E.U./dL (0.2)
[2022-04-25 14:20] LABS: Bacteria Urine Occasional (0-1); Culture Indicated Urine Specimen Cultured; Granular Casts Urine 1-5/LPF; RBC Urine 0-1/HPF (0-5/HPF); Squamous Epithelial Cell Urine None Seen (0-5/HPF); WBC Urine 1-5/HPF (0-5/HPF)
[2022-04-25] MEDS: ENOXAPARIN 40 MG/0.4 ML SYRINGE SUBCUT (17:11)
[2022-04-25] MEDS: ONDANSETRON 4 MG/2 ML INJ IV (17:11)
--- NOTE | 2022-04-25 18:49 | PC.NURSE ---
Patient has strong cough, but does not clear secretions. She is having difficulty swallowing saliva, has sore throat, but was able to handle an ice chip without coughing.
--- NOTE | 2022-04-25 19:23 | P.HP_ITS ---
History of Present Illness History of Present Illness Date Patient Seen: 04/25/22 Chief complaint: Confusion, covid (+) Narrative: 82-year-old female with underlying history of asthma, prior stroke, epilepsy, hypertension, paroxysmal atrial fibrillation, and likely vascular dementia broug ht in today with known COVID infection and worsening cognitive status and respiratory symptoms. History is obtained from the patient's daughter as the patient is unable to provide any significant history. Patient's daughter notes although she has no formal diagnosis of dementia, she has tomlin many symptoms. She states sometimes mom does not know who the daughter is, she has ?a lot of word salad ?. After visiting with the patient's PCP and knowing there was not any specific treatment for her, they elected not to pursue any further intervention. Approximately 7 days ago, the patient's daughter and her went to a [facility] service for another family member. Unfortunately 7 who attended the [facility] was ill. Two days later, the patient's son-in-law tested positive for COVID. He attempted to quarantine and remained down stairs in their basement while ill. Patient's daughter was caring for the as well as the patient appears 2 days prior to admission around 3:45 p.m., patient began complaining of her back hurting and stated she needed to go to bed. She has a history of back pain related to compression fractures that were sustained during seizures last year. Daughter gave her tramadol and patient went to bed. The daughter states that is not unusual for the patient to sleep up to 20 hours when her back is painful. She remained in bed yesterday and at around noon the patient's daughter went to check on her. She did not want to get up, did not feel an urge to go to the bathroom. She did feel warm and flushed to the patient's daughter. Temperature was elevated at 100.6 axillary. Patient was confused and could not follow commands. She received Tylenol. She subsequently complained of a sore throat and did have some emesis. COVID test was done and it was faintly positive. The daughter contacted the patient's PCP, Dre bid was called in but due to the patient's emesis yesterday the PACS of it was held. Daughter plan to give it this morning but the patient had worsening symptoms. Daughter notes this morning she went in to assess her mom and mom had audible rales. She stated her pulse ox was 86%. Daughter listen to her lungs and noted worsening crackles. The daughter is an ER nurse by profession. Patient was also incontinent which is unusual for her. Due to all of that, she was brought into the emergency department for evaluation. In the emergency department, she initially only required 2 L of oxygen. While in the emergency department her oxygen need went up to 3 L. Daughter agreed with remdesivir and dexamethasone. Admission was subsequently recommended. Since admission, patient has been evaluated by nursing and was noted to have difficulty managing her secretions. She failed a bedside swallow evaluation. She is now NPO. Patient is unable to give much history but does admit to feeling short of breath. Daughter notes when she 1st brought the patient to [place] she weighed 135 lb. Approximately 1 year ago she developed frequent falls, was not remembering the falls. She has sustained vertebral fractures as results which has led to her back pain. In May of 2021, she had an episode where she was quite confused. She was brought into the emergency department and a stroke was found. Additionally, they diagnosis seizures at that time. In October of this year, patient developed abdominal pain, nausea and vomiting. She was found to have cholelithiasis/cholecystitis. She had 2 meneses mal seizures. She was seen at the [facility] and admitted for 1 week. At that time she was too ill to undergo surgery so received multiple IV antibiotics and ultimately sent home. Approximately 1 month later her symptoms recurred. She was seen at [facility], admitted, underwent a laparoscopic cholecystectomy and was found to have a gangrenous gallbladder. During that time patient did lose significant weight and her weight had dropped down to 110 lb. Patient was seen by her primary care provider, started on b.i.d. Marinol, and started eating well. Subsequently the dose was decreased to once daily. Over the past month or so, daughter reports the patient had been eating very well. No dysphagia. She had actually gained weight. On admission today, her weight was 114 lb. Patient History Medical History Asthma CVA (cerebral vascular accident) Essential hypertension Paroxysmal atrial fibrillation 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 (CVA) Vascular dementia Surgical History H/O: hysterectomy History of bilateral knee replacement History of ERCP Comment: Karina olson 2021 Family & Social History Social History: Family history: She is adopted, family history unknown. household members children Tobacco & Substance use: Smoking Status Never smoker alcohol intake never Substance Use Type does not use Meds Home Medications and Allergies Home Medications Medication Instructions Recorded Confirmed Type aspirin 81 mg tablet 81 mg PO DAILY 08/17/21 04/25/22 History calcitonin (salmon) 200 1 spray intranasal DAILY 08/17/21 04/25/22 History unit/actuation nasal spray levetiracetam 250 mg tablet 500 mg PO BID 08/17/21 04/25/22 History lisinopril 2.5 mg tablet 2.5 mg PO QPM PRN Hypertension 08/17/21 04/25/22 History verapamil 240 mg tablet,extended 240 mg PO DAILY 08/17/21 10/26/21 History release albuterol sulfate 90 mcg/actuation 2 puff inhalation DAILY PRN 10/26/21 04/25/22 History aerosol inhaler Shortness Of Breath Or Wheezing dronabinol 2.5 mg capsule 2.5 mg PO BID 10/26/21 04/25/22 History lidocaine 5 % topical patch 1 patch transdermal BID PRN Pain 10/26/21 04/25/22 History (Scale Score 4-6) ondansetron 4 mg disintegrating 4 mg translingual Q8H PRN Nausea 10/26/21 04/25/22 History tablet verapamil 240 mg tablet,extended 240 mg PO DAILY 04/25/22 04/25/22 History release Allergies Allergy/AdvReac Type Severity Reaction Status Date / Time Penicillins AdvReac Unverified 10/27/21 16:50 Review of Systems Review of Systems Narrative: Unable to obtain Exam Vital Signs (past 8 hours): - 04/25/22 12:04 04/25/22 11:50 04/25/22 11:54 Temperature 98.4 F Pulse Rate 98 H 122 H Respiratory Rate 20 24 Blood Pressure 141/82 H 141/82 H Pulse Oximetry 92 93 Oxygen Delivery Method Nasal Cannula Oxygen Flow Rate 3 04/25/22 11:54 04/25/22 12:00 04/25/22 12:15 Temperature Pulse Rate 117 H 102 H Respiratory Rate 26 H 25 H Blood Pressure 131/79 Pulse Oximetry 93 94 Oxygen Delivery Method Nasal Cannula Oxygen Flow Rate 2 04/25/22 12:15 04/25/22 12:30 04/25/22 12:30 Temperature Pulse Rate 104 H 118 H Respiratory Rate 27 H 25 H Blood Pressure 153/88 H Pulse Oximetry 93 93 Oxygen Delivery Method Oxygen Flow Rate 04/25/22 12:45 04/25/22 12:45 04/25/22 13:00 Temperature Pulse Rate 93 H Respiratory Rate 23 Blood Pressure 138/71 151/82 H Pulse Oximetry 95 Oxygen Delivery Method Oxygen Flow Rate 04/25/22 13:00 04/25/22 13:16 04/25/22 13:16 Temperature Pulse Rate 96 H 99 H Respiratory Rate 22 22 Blood Pressure 142/63 H Pulse Oximetry 95 95 Oxygen Delivery Method Oxygen Flow Rate 04/25/22 13:30 04/25/22 13:30 04/25/22 13:45 Temperature Pulse Rate 103 H Respiratory Rate 25 H Blood Pressure 133/71 129/75 Pulse Oximetry 90 L Oxygen Delivery Method Oxygen Flow Rate 04/25/22 13:45 04/25/22 14:00 04/25/22 14:00 Temperature Pulse Rate 101 H 101 H Respiratory Rate 20 22 Blood Pressure 111/77 Pulse Oximetry 92 93 Oxygen Delivery Method Oxygen Flow Rate 04/25/22 14:30 04/25/22 14:31 04/25/22 14:31 Temperature Pulse Rate 105 H 97 H Respiratory Rate 22 23 Blood Pressure 142/67 H Pulse Oximetry 96 96 Oxygen Delivery Method Oxygen Flow Rate 04/25/22 15:00 04/25/22 15:46 04/25/22 13:38 Temperature 100.6 F H Pulse Rate 106 H Respiratory Rate 18 Blood Pressure 130/56 L 123/82 Pulse Oximetry 91 Oxygen Delivery Method Nasal Cannula Oxygen Flow Rate 4 Oxygen Delivery Method Nasal Cannula Oxygen Flow Rate 4 Narrative Exam Narrative: GEN: Ill-appearing elderly female, alert, oriented to self only HEENT: Normocephalic, face symmetric, pupils equal round reactive to light, extraocular movements intact, sclerae anicteric, conjunctiva clear, nares patent, oropharynx reveals an intact soft and hard palate, dry mucous membranes NECK: Supple, no lymphadenopathy, thyroid without enlargement or nodularity, carotids no bruits CHEST: Respiratory excursions symmetric, tachypneic, coarse crackles in the bases bilaterally CV: Mildly tachycardic, irregular,, no murmurs, rubs, gallops, PMI nondisplaced ABD: Soft, nontender, nondistended, bowel sounds present in all 4 quadrants, no organomegaly or masses appreciated EXTR: Warm, well perfused, no clubbing/cyanosis/edema SKIN: Warm and dry, without rash NEURO: Alert and oriented x 1, generally weak PSYCH: Confused Objective Labs Result Diagrams: 04/25/22 12:10 04/25/22 12:10 Labs: Laboratory Results - last 24 hr 04/25/22 04/25/22 04/25/22 11:44 12:10 12:10 WBC 7.7 RBC 4.69 Hgb 13.5 Hct 40.6 MCV 86.6 MCH 28.8 MCHC 33.3 RDW 14.1 Plt Count 142 L Neut % (Auto) 71.9 Lymph % (Auto) 17.0 L [place] % (Auto) 10.5 Eos % (Auto) 0.0 L Baso % (Auto) 0.6 Neut # (Auto) 5600 Lymph # (Auto) 1300 [place] # (Auto) 800 Eos # (Auto) 0 Baso # (Auto) 0 Sodium 133 L Potassium 4.0 Chloride 97 L Carbon Dioxide 28 BUN 22 H Creatinine 1.22 H Estimated GFR 45 L BUN/Creatinine Ratio 18.0 Glucose 93 Lactate Calcium 9.1 Total Bilirubin 0.4 AST 31 ALT 13 Alkaline Phosphatase 86 Total Creatine Kinase CK-MB (CK-2) CK-MB (CK-2) Rel Index Troponin I NT-Pro-B Natriuret Pep Total Protein 6.9 Albumin 3.8 Globulin 3.1 Albumin/Globulin Ratio 1.2 Procalcitonin Urine Color Urine Appearance Urine pH Ur Specific [place] Urine Protein Urine Glucose (UA) Urine Ketones Urine Occult Blood Urine Nitrate Urine Bilirubin Urine Urobilinogen Ur Leukocyte Esterase Urine RBC Urine WBC Ur Squamous Epith Cells Urine Bacteria Granular Casts Ur Culture Indicated? SARS-CoV-2 (PCR) Positive H 04/25/22 04/25/22 04/25/22 12:10 12:10 12:10 WBC RBC Hgb Hct MCV MCH MCHC RDW Plt Count Neut % (Auto) Lymph % (Auto) [place] % (Auto) Eos % (Auto) Baso % (Auto) Neut # (Auto) Lymph # (Auto) [place] # (Auto) Eos # (Auto) Baso # (Auto) Sodium Potassium Chloride Carbon Dioxide BUN Creatinine Estimated GFR BUN/Creatinine Ratio Glucose Lactate 2.0 Calcium Total Bilirubin AST ALT Alkaline Phosphatase Total Creatine Kinase 42 CK-MB (CK-2) TNP CK-MB (CK-2) Rel Index TNP Troponin I < 0.012 NT-Pro-B Natriuret Pep 3220 H Total Protein Albumin Globulin Albumin/Globulin Ratio Procalcitonin 0.28 Urine Color Urine Appearance Urine pH Ur Specific [place] Urine Protein Urine Glucose (UA) Urine Ketones Urine Occult Blood Urine Nitrate Urine Bilirubin Urine Urobilinogen Ur Leukocyte Esterase Urine RBC Urine WBC Ur Squamous Epith Cells Urine Bacteria Granular Casts Ur Culture Indicated? SARS-CoV-2 (PCR) 04/25/22 14:04 WBC RBC Hgb Hct MCV MCH MCHC RDW Plt Count Neut % (Auto) Lymph % (Auto) [place] % (Auto) Eos % (Auto) Baso % (Auto) Neut # (Auto) Lymph # (Auto) [place] # (Auto) Eos # (Auto) Baso # (Auto) Sodium Potassium Chloride Carbon Dioxide BUN Creatinine Estimated GFR BUN/Creatinine Ratio Glucose Lactate Calcium Total Bilirubin AST ALT Alkaline Phosphatase Total Creatine Kinase CK-MB (CK-2) CK-MB (CK-2) Rel Index Troponin I NT-Pro-B Natriuret Pep Total Protein Albumin Globulin Albumin/Globulin Ratio Procalcitonin Urine Color Yellow Urine Appearance Clear Urine pH 6.0 Ur Specific [place] 1.015 Urine Protein Negative Urine Glucose (UA) 1+ H Urine Ketones Negative Urine Occult Blood Trace-lysed Urine Nitrate Positive H Urine Bilirubin Negative Urine Urobilinogen 0.2 Ur Leukocyte Esterase 1+ H Urine RBC 0-1/hpf Urine WBC 1-5/hpf Ur Squamous Epith Cells None seen Urine Bacteria Occasional (0-1) Granular Casts 1-5/lpf Ur Culture Indicated? Specimen cultured SARS-CoV-2 (PCR) Assessment & Plan Assessment & Plan narrative: 1. Acute hypoxic respiratory failure Patient is now requiring 5 L of oxygen via nasal cannula to maintain saturations in the low 90s. Etiology is evolving COVID pneumonia. Will titrate oxygen as needed. Discussed the use of heated high-flow oxygen with patient's daughter who is receptive if needed. 2. COVID pneumonia Although chest x-ray on admission is negative, patient does have crackles in the bases bilaterally, worsening hypoxia consistent with COVID pneumonia. Will continue remdesivir, monitor CMP. Continue dexamethasone 6 mg IV daily. Will also add baricitinib 4 mg p.o. daily. Although she is NPO due to concerns for her swallow, baricitinib should be given with a small amount of fluid as needed. 3. Dysphagia Reportedly developed just in the last 24 hours per patient's daughter. She did fail her swallow evaluation. Will be NPO. Although the goal is to keep her on the dry side with the COVID pneumonia, will need to place her on some baseline fluids. Will put her on normal saline at 60 cc/hour. 4. Protein calorie malnutrition Daughter reports she has been gaining weight. Most recent weight was 110 lb per the patient's daughter. 114 lb on admission. She has lost 20 lb over the past year. Obtain a dietitian consult when she is able to advance her diet. 5. Epilepsy Will start Keppra IV. She is at higher risk for seizure given her acute infection 6. Prior cerebrovascular accident No evidence for acute stroke at this time. 7. Vascular dementia with acute metabolic encephalopathy At baseline, she is able to perform most of her ADLs with some assistance. Currently she is incontinent and having difficulty following commands. Encephalopathy is likely secondary to her acute infection and respiratory failure. 8. Thrombocytopenia Mild at 142. Normal at baseline. Likely secondary to infection. 9. Paroxysmal atrial fibrillation She is irregular on exam today. Holding her oral medications at this time. For now would tolerate mild tachycardia as it is likely a physiologic response to her infection. If she has sustained AFib with RVR, would treat with IV frank blocking agents. 10. LEONOR Creatinine is 1.22 on admission. Baseline creatinine appears to be 096. Will monitor with hydration. Code status DNR DNI Prophylaxis Will place on heparin Disposition Admit to acute care Time Spent With Patient Critical Care time: I spent a total of [] minutes of critical care time on this patient's care today; this time is exclusive of procedural time. Quality VTE Deep Vein Thrombosis/Pulmonary Embolism Present on Admission: No
[2022-04-25] MEDS: HEPARIN 5,000 UNIT/ML VIAL 5000 UNIT SUBCUT (20:44)
[2022-04-25] MEDS: SODIUM CHLORIDE 0.9% 1,000 ML 60 ML IV (20:44)
[2022-04-25] MEDS: levETIRAcetam 500 MG in SODIUM CHLORIDE 0.9% 100 ML 420 MG IV (20:44)
--- NOTE | 2022-04-25 23:23 | PC.NURSE ---
Patient noticed to be saturating mid 80's on 5L NC. Patient coarse on assessment with audible secretions in back of throat. Link Trainer Mechanic attempted to try to have patient cough, but she is too lethargic to do so. RESORT MANAGER made aware as well as RT. RT assessed at bedside and placed patient on nonrebreather. Patient's saturations notably better > 95%. Per RESORT MANAGER, ok for patient to saturate 88% or greater. RT able to wean patient back down and is now currently on 6L NC maintaining saturations > 88%.
[2022-04-26] VITALS (8 sets, daily range): BP systolic 106–131; BP diastolic 58–80; PULSE 44–101; RESP 14–19; TEMP 36.3–36.6; O2SAT 92–99
[2022-04-26 05:43] LABS: Add Manual Diff / Slide Review NO; Basophils Absolute Auto 0 /uL (0-100); Basophils Percent Auto 0.1 % (0-2); Eosinophils Absolute Auto 0 /uL (0-450); Hematocrit 39.4 % (36-46); Hemoglobin 13.1 g/dL (12.0-16.0); Lymphocytes Absolute Auto 1100 /uL (1100-4500); Lymphocytes Percent Auto 14.4 % (25-40); Mean Corpuscular HGB Conc 33.4 % (30-36); Mean Corpuscular Hemoglobin 29.1 PG (26-34); Mean Corpuscular Volume 87.3 fL (80-100); Monocytes Absolute Auto 600 /uL (0-900); Monocytes Percent Auto 7.7 % (3-14); Neutrophils Absolute Auto 5800 /uL (1500-7000); Neutrophils Percent Auto 77.8 % (50-75); Platelet Count 140 X10^3/uL (150-400); Red Blood Cell Count 4.51 X10^6/uL (4.0-5.2); White Blood Cell Count 7.4 X10^3/uL (4.5-11.0)
[2022-04-26 05:48] LABS: Alanine Aminotransferase 15 IU/L (<35); Albumin 3.6 g/dL (3.5-5.0); Albumin Globulin Ratio 1.1 (1.0-2.8); Alkaline Phosphatase 67 U/L (38-126); Aspartate Aminotransferase 33 IU/L (14-36); BUN Creatinine Ratio 27.8 (6-22); Bilirubin Total 0.4 mg/dL (0.2-1.3); Blood Urea Nitrogen 32 mg/dL (7-17); Calcium 8.8 mg/dL (8.4-10.2); Carbon Dioxide 25 mmol/L (22-32); Chloride 102 mmol/L (98-107); Estimated Glomerular Filt Rate 48 mL/min (>60); Globulin 3.2 g/dL (1.7-4.1); Glucose 106 mg/dL (80-110); HEMOLYSIS 21 (0-50); Potassium 3.9 mmol/L (3.4-5.1); Sodium 136 mmol/L (137-145); Total Protein 6.8 g/dL (6.3-8.2)
--- NOTE | 2022-04-26 05:56 | P.PN_ITS ---
Subjective Subjective Date Patient Seen: 04/26/22 Interval history: 82-year-old female with underlying history of asthma, prior stroke, epilepsy, hypertension, paroxysmal atrial fibrillation, and likely vascular dementia admitted yesterday w/COVID pna and AHRF. Initially required 2lpm in ED, up to 5lpm by last night. She was up to 6lpm this am. This afternoon, O2 need is down to 3pm. She remains NPO d/t difficulties managing her secretions on admission. She does still complain of a sore throat. She is speaking nonsensically, which her daughter notes is her baseline. Exam Vital Signs (past 8 hours): - 04/26/22 00:00 04/26/22 03:11 04/26/22 04:00 Temperature 97.3 F L 97.9 F Pulse Rate 101 H 70 Respiratory Rate 18 19 Blood Pressure 113/68 131/80 Pulse Oximetry 92 98 Oxygen Delivery Method Nasal Cannula Oxygen Flow Rate 6 6 6 Fraction of Inspired Oxygen 44 Fraction of Inspired Oxygen 44 Oxygen Delivery Method Nasal Cannula Oxygen Flow Rate 6 Narrative Exam Narrative: GEN:? Frail-appearing elderly female, alert and oriented to self HEENT:? Normocephalic, face symmetric CHEST:? Respiratory excursions symmetric, breath sounds are diminished but crackles are no longer present in the bases CV:? Mildly bradycardic, irregular,, no murmurs, rubs, gallops, PMI nondisplaced ABD:? Soft, nontender, nondistended, bowel sounds present in all 4 quadrants, no organomegaly or masses appreciated EXTR:? Warm, well perfused, no clubbing/cyanosis/edema SKIN:? Warm and dry, without rash NEURO:? Alert and oriented x 1, remains weak but improved compared to yesterday, she is able to assist when I asked her to turn over in bed Objective Labs Result Diagrams: 04/26/22 05:20 04/26/22 05:20 Labs: Laboratory Results - last 24 hr 04/25/22 04/25/22 04/25/22 11:44 12:10 12:10 WBC 7.7 RBC 4.69 Hgb 13.5 Hct 40.6 MCV 86.6 MCH 28.8 MCHC 33.3 RDW 14.1 Plt Count 142 L Neut % (Auto) 71.9 Lymph % (Auto) 17.0 L [place] % (Auto) 10.5 Eos % (Auto) 0.0 L Baso % (Auto) 0.6 Neut # (Auto) 5600 Lymph # (Auto) 1300 [place] # (Auto) 800 Eos # (Auto) 0 Baso # (Auto) 0 Sodium 133 L Potassium 4.0 Chloride 97 L Carbon Dioxide 28 BUN 22 H Creatinine 1.22 H Estimated GFR 45 L BUN/Creatinine Ratio 18.0 Glucose 93 Lactate Calcium 9.1 Total Bilirubin 0.4 AST 31 ALT 13 Alkaline Phosphatase 86 Total Creatine Kinase CK-MB (CK-2) CK-MB (CK-2) Rel Index Troponin I NT-Pro-B Natriuret Pep Total Protein 6.9 Albumin 3.8 Globulin 3.1 Albumin/Globulin Ratio 1.2 Procalcitonin Urine Color Urine Appearance Urine pH Ur Specific [place] Urine Protein Urine Glucose (UA) Urine Ketones Urine Occult Blood Urine Nitrate Urine Bilirubin Urine Urobilinogen Ur Leukocyte Esterase Urine RBC Urine WBC Ur Squamous Epith Cells Urine Bacteria Granular Casts Ur Culture Indicated? SARS-CoV-2 (PCR) Positive H 04/25/22 04/25/22 04/25/22 12:10 12:10 12:10 WBC RBC Hgb Hct MCV MCH MCHC RDW Plt Count Neut % (Auto) Lymph % (Auto) [place] % (Auto) Eos % (Auto) Baso % (Auto) Neut # (Auto) Lymph # (Auto) [place] # (Auto) Eos # (Auto) Baso # (Auto) Sodium Potassium Chloride Carbon Dioxide BUN Creatinine Estimated GFR BUN/Creatinine Ratio Glucose Lactate 2.0 Calcium Total Bilirubin AST ALT Alkaline Phosphatase Total Creatine Kinase 42 CK-MB (CK-2) TNP CK-MB (CK-2) Rel Index TNP Troponin I < 0.012 NT-Pro-B Natriuret Pep 3220 H Total Protein Albumin Globulin Albumin/Globulin Ratio Procalcitonin 0.28 Urine Color Urine Appearance Urine pH Ur Specific [place] Urine Protein Urine Glucose (UA) Urine Ketones Urine Occult Blood Urine Nitrate Urine Bilirubin Urine Urobilinogen Ur Leukocyte Esterase Urine RBC Urine WBC Ur Squamous Epith Cells Urine Bacteria Granular Casts Ur Culture Indicated? SARS-CoV-2 (PCR) 04/25/22 04/26/22 04/26/22 14:04 05:20 05:20 WBC 7.4 RBC 4.51 Hgb 13.1 Hct 39.4 MCV 87.3 MCH 29.1 MCHC 33.4 RDW 14.0 Plt Count 140 L Neut % (Auto) 77.8 H Lymph % (Auto) 14.4 L [place] % (Auto) 7.7 Eos % (Auto) 0.0 L Baso % (Auto) 0.1 Neut # (Auto) 5800 Lymph # (Auto) 1100 [place] # (Auto) 600 Eos # (Auto) 0 Baso # (Auto) 0 Sodium 136 L Potassium 3.9 Chloride 102 Carbon Dioxide 25 BUN 32 H Creatinine 1.15 H Estimated GFR 48 L BUN/Creatinine Ratio 27.8 H Glucose 106 Lactate Calcium 8.8 Total Bilirubin 0.4 AST 33 ALT 15 Alkaline Phosphatase 67 Total Creatine Kinase CK-MB (CK-2) CK-MB (CK-2) Rel Index Troponin I NT-Pro-B Natriuret Pep Total Protein 6.8 Albumin 3.6 Globulin 3.2 Albumin/Globulin Ratio 1.1 Procalcitonin Urine Color Yellow Urine Appearance Clear Urine pH 6.0 Ur Specific [place] 1.015 Urine Protein Negative Urine Glucose (UA) 1+ H Urine Ketones Negative Urine Occult Blood Trace-lysed Urine Nitrate Positive H Urine Bilirubin Negative Urine Urobilinogen 0.2 Ur Leukocyte Esterase 1+ H Urine RBC 0-1/hpf Urine WBC 1-5/hpf Ur Squamous Epith Cells None seen Urine Bacteria Occasional (0-1) Granular Casts 1-5/lpf Ur Culture Indicated? Specimen cultured SARS-CoV-2 (PCR) [facility] Medical History Asthma CVA (cerebral vascular accident) Essential hypertension Paroxysmal atrial fibrillation 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 (CVA) Vascular dementia Surgical History H/O: hysterectomy History of bilateral knee replacement History of ERCP Social History household members: children Smoking Status: Never smoker alcohol intake: never Assessment & Plan Assessment & Plan narrative: 1. Acute hypoxic respiratory failure Improving over the course of the day. Oxygen need was up to 6 L this morning but is now down to 3 L. Etiology is evolving COVID pneumonia.? Will titrate oxygen as needed.? Discussed the use of heated high-flow oxygen with patient's daughter on admission. If patient does have worsening respiratory failure daughter is amenable to the heated high-flow. 2. COVID pneumonia Although chest x-ray on admission is negative, patient did have clinical evidence for pneumonia with crackles in the bases bilaterally, worsening hypoxia consistent with COVID pneumonia.? Tolerating remdesivir. LFTs are within normal limits. Continues dexamethasone and baricitinib. Discussed with the patient's daughter that if patient does show ongoing improvement and is able to discharge before completing the course of remdesivir or baricitinib, these medications would simply be discontinued at discharge. She would continue a 10 day course of dexamethasone. 3. Dysphagia Reportedly developed in the 24 hours prior to admission per patient's daughter.? She did fail her swallow evaluation.? Remains NPO while awaiting speech therapy to perform a formal swallow evaluation.? Although the goal is to keep her on the dry side with the COVID pneumonia, she will remain on normal saline 60 cc/hour, which she is tolerating well. 4. Protein calorie malnutrition Daughter reports she has been gaining weight.? Most recent weight was 110 lb per the patient's daughter.? 114 lb on admission.? She has lost 20 lb over the past year.? Obtain a dietitian consult when she is able to advance her diet. 5. Epilepsy Continue Keppra IV.? She is at higher risk for seizure given her acute infection. No seizure activity since admission 6. Prior cerebrovascular accident No evidence for acute stroke at this time. 7. Vascular dementia with acute metabolic encephalopathy At baseline, she is able to perform most of her ADLs with some assistance.? Currently she is incontinent and having difficulty following commands, which is not her baseline.? Encephalopathy is likely secondary to her acute infection and respiratory failure. She is showing some improvement today with increased beach and following some commands. 8. Thrombocytopenia Mild at 140.? At baseline, her platelet count is normal. Thrombocytopenia is likely secondary to COVID infection. 9. Paroxysmal atrial fibrillation She is bradycardic today. Suspect this is related to her COVID infection. Holding oral meds as noted. 10. LEONOR Creatinine was 1.22 on admission.? It is down to 1.15 today, but BUN is up to 32. Baseline creatinine appears to be 0.96.? Will monitor with hydration. Code status DNR DNI Prophylaxis Continue heparin Disposition Home with daughter at discharge Time Spent With Patient Critical Care time: I spent a total of [] minutes of critical care time on this patient's care today; this time is exclusive of procedural time. Quality VTE Deep Vein Thrombosis/Pulmonary Embolism Present on Admission: No
[2022-04-26] MEDS: levETIRAcetam 500 MG in SODIUM CHLORIDE 0.9% 100 ML 420 MG IV ×2 (08:44→20:43)
[2022-04-26] MEDS: DEXAMETHASONE 10 MG/ML VIAL 6 MG IV (08:46)
[2022-04-26] MEDS: HEPARIN 5,000 UNIT/ML VIAL 5000 UNIT SUBCUT (08:47)
[2022-04-26] MEDS: REMDESIVIR 100 MG in SODIUM CHLORIDE 0.9% 230 ML 250 MG IV (08:52)
[2022-04-26] MEDS: SODIUM CHLORIDE 0.9% 1,000 ML 60 ML IV (16:22)
--- NOTE | 2022-04-26 17:31 | CM.DPNOTE ---
Discharge Planning Note: Patient is in Covid isolation. Unable to connect with her (dementia and sick) and will try again tomorrow. Lives with daughter (retired ER nurse) Kayla and son in law. Has walker and w/c, have chair lift in home for split level home. Plan: Follow closely for needs. Mayda Fitzgerald RN/DCP
--- NOTE | 2022-04-26 18:20 | PC.NURSE ---
Day Shift Note Patient oriented to self only, able to follow directions, able to answer simple questions. Speech content not always cohesive. Alertness waxes and wanes. SpO2 98% on 2L NC, HR in the 40s (sinus) and MD is aware. Turning every 2 hours to offload pressure, heels are floated. Bladder scanned for 432 ml at 1500 with no urine output, order received for intermittent straight cath prn scan > 400 ml. Straight cathed at 1600 for 450 ml of clear marietta urine. Pt remains NPO pending ST eval and alertness. Bed alarm is on.
[2022-04-27] VITALS (9 sets, daily range): BP systolic 107–135; BP diastolic 59–97; PULSE 49–100; RESP 15–20; TEMP 36.1–36.7; O2SAT 93–100
[2022-04-27 05:21] LABS: Hemoglobin 12.5 g/dL (12.0-16.0)
[2022-04-27 05:38] LABS: Alanine Aminotransferase 14 IU/L (<35); Albumin 2.9 g/dL (3.5-5.0); Alkaline Phosphatase 55 U/L (38-126); Aspartate Aminotransferase 28 IU/L (14-36); BUN Creatinine Ratio 41.2 (6-22); Bilirubin Total 0.2 mg/dL (0.2-1.3); Blood Urea Nitrogen 42 mg/dL (7-17); Calcium 8.1 mg/dL (8.4-10.2); Carbon Dioxide 23 mmol/L (22-32); Chloride 106 mmol/L (98-107); Estimated Glomerular Filt Rate 55 mL/min (>60); Globulin 2.9 g/dL (1.7-4.1); Glucose 87 mg/dL (80-110); HEMOLYSIS < 15 (0-50); Potassium 3.9 mmol/L (3.4-5.1); Sodium 138 mmol/L (137-145); Total Protein 5.8 g/dL (6.3-8.2)
[2022-04-27] MEDS: DEXAMETHASONE 10 MG/ML VIAL 6 MG IV (09:31)
[2022-04-27] MEDS: REMDESIVIR 100 MG in SODIUM CHLORIDE 0.9% 230 ML 250 MG IV (09:31)
[2022-04-27] MEDS: HEPARIN 5,000 UNIT/ML VIAL 5000 UNIT SUBCUT ×2 (10:44→20:55)
[2022-04-27] MEDS: levETIRAcetam 500 MG in SODIUM CHLORIDE 0.9% 100 ML 420 MG IV ×2 (10:44→20:55)
[2022-04-27] MEDS: BARICITINIB 2 MG TABLET PO (11:00)
--- NOTE | 2022-04-27 14:07 | PC.NURSE ---
Am shift Pt is Alert to self only, speech is more clear, but mentation comes and goes. Cannot accurately answer questions. Decreasing 02 needs today. Able to get to RA by lunchtime. Weakness, PT order placed. Update to Daughter who has concerns about lack of mobility, baseline is ambulatory 50' down deleon unassisted. Speech eval done. [facility] soft diet and thin liquids ordered. Pt is forgetful and unsure of goals of care. Home health and home PT previously utilized, but Pt refused to participate. Update left for Discharge planning.
--- NOTE | 2022-04-27 14:33 | ST.IPCSEOM ---
Visit Care Team Role Provider Type Nasreen Najera DO Primary Care Provider Non-Staff Specialty: Internal Medicine Address: [address] [place], [address] Email: Mena Gloria DO Emergency Provider Physician Referring Provider Specialty: Emergency Medicine Address: [address] [place] [address], [address] Email: [email or web address] Lucio MD Admit Provider Physician Attending Provider Specialty: Internal Medicine Address: [address] [place] [address], [address] Phone: Fax: Email: [email or web address] Diagnoses COVID-19 (04/25/22) Past Medical History (Last Reviewed 04/25/22 @ 13:02 by Mena Gloria DO) Asthma (Medical) CVA (cerebral vascular accident) (Medical) Essential hypertension (Medical) Paroxysmal atrial fibrillation (Medical) 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 (CVA) (Medical) Vascular dementia (Medical) Speech-Language Pathology Swallow Evaluation ORDAINED MINISTER Clinical Swallow Evaluation Start: 04/27/22 14:19 Freq: Status: Active Protocol: Document 04/27/22 14:19 MARY (Rec: 04/27/22 14:33 ZS [id number]) Clinical Swallow Evaluation Session Time Visit Start Time 11:50 Visit Stop Time 12:30 Total Visit Minutes 40 Visit Information Visit Number Initial Evaluation Setting Assessment Location Acute Care Visit Type Note Type Initial evaluation Next Note Type Next Note Type Treatment Note Patient Information Identification Type Name,Wristband History Per H&P: 82-year-old female with underlying history of asthma, prior stroke, epilepsy , hypertension, paroxysmal atrial fibrillation, and likely vascular dementia brought in today with known COVID infection and worsening cognitive status and respiratory symptoms. History is obtained from the patient' s daughter as the patient is unable to provide any significant history. Patient' s daughter notes although she has no formal diagnosis of dementia, she has tomlin many symptoms. She states sometimes mom does not know who the daughter is, she has ? a lot of word salad ?. After visiting with the patient's PCP and knowing there was not any specific treatment for her , they elected not to pursue any further intervention. Approximately 7 days ago, the patient's daughter and her went to a the [facility] service for another family member. Unfortunately 7 who attended the [facility] was ill. Two days later, the patient' s son-in-law tested positive for COVID. He attempted to quarantine and remained down stairs in their basement while ill. Patient's daughter was caring for the as well as the patient appears 2 days prior to admission around 3: 45 p.m., patient began complaining of her back hurting and stated she needed to go to bed. She has a history of back pain related to compression fractures that were sustained during seizures last year. Daughter gave her tramadol and patient went to bed. The daughter states that is not unusual for the patient to sleep up to 20 hours when her back is painful . She remained in bed yesterday and at around noon the patient's daughter went to check on her. She did not want to get up, did not feel an urge to go to the bathroom. She did feel warm and flushed to the patient's daughter. Temperature was elevated at 100.6 axillary. Patient was confused and could not follow commands. She received Tylenol. She subsequently complained of a sore throat and did have some emesis. COVID test was done and it was faintly positive. The daughter contacted the patient's PCP, Dre jha was called in but due to the patient's emesis yesterday the PACS of it was held. Daughter plan to give it this morning but the patient had worsening symptoms. Daughter notes this morning she went in to assess her mom and mom had audible rales. She stated her pulse ox was 86%. Daughter listen to her lungs and noted worsening crackles. The daughter is an ER nurse by profession. Patient was also incontinent which is unusual for her. Due to all of that, she was brought into the emergency department for evaluation. In the emergency department, she initially only required 2 L of oxygen. While in the emergency department her oxygen need went up to 3 L. Daughter agreed with remdesivir and dexamethasone. Admission was subsequently recommended. Since admission, patient has been evaluated by nursing and was noted to have difficulty managing her secretions. She failed a bedside swallow evaluation. She is now NPO. Patient is unable to give much history but does admit to feeling short of breath. Daughter notes when she 1st brought the patient to [place] she weighed 135 lb. Approximately 1 year ago she developed frequent falls, was not remembering the falls. She has sustained vertebral fractures as results which has led to her back pain. In May of 2021, she had an episode where she was quite confused. She was brought into the emergency department and a stroke was found. Additionally, they diagnosis seizures at that time. In October of this year, patient developed abdominal pain, nausea and vomiting. She was found to have cholelithiasis/ cholecystitis. She had 2 meneses mal seizures. She was seen at the [facility] and admitted for 1 week. At that time she was too ill to undergo surgery so received multiple IV antibiotics and ultimately sent home. Approximately 1 month later her symptoms recurred. She was seen at [facility], admitted, underwent a laparoscopic cholecystectomy and was found to have a gangrenous gallbladder. During that time patient did lose significant weight and her weight had dropped down to 110 lb. Patient was seen by her primary care provider, started on b.i.d. Marinol, and started eating well. Subsequently the dose was decreased to once daily. Over the past month or so, daughter reports the patient had been eating very well. No dysphagia. She had actually gained weight. On admission, her weight was 114 lb. Subjective Observations The pt was reclined in bed when ORDAINED MINISTER arrived. She was agreeable to participate in swallow evaluation and reported no difficulty with swallowing. Pt was confused and continued talking about whether her daughter (with whom patient lives) was home. Reported by Patient Other Symptoms Difficulty swallowing liquids Current Diet Nothing by mouth Baseline Feeding Method Needs some assistance Objective Assessment Mental Status Alert,Responsive,Cooperative, Confused Oral Integrity WFL Dentition Missing teeth Lip Function Mild impairment Observation of Lips at Rest Symmetrical Pucker Reduced range of motion, Reduced strength Lip Retraction Reduced range of motion Alternating Pucker/Lip Retraction Reduced range of motion Tongue Function Mild impairment Observations of Tongue at Rest Within normal limits Tongue Protrusion Reduced range of motion, Reduced strength Tongue Retraction Reduced range of motion, Reduced strength Tongue Lateralization Reduced range of motion, Reduced strength Jaw Function Within normal limits Observations of Jaw at Rest Within normal limits Jaw Opening Within normal limits Jaw Closing Within normal limits Hard/Soft Palate Function Within normal limits Observations of Hard/Soft Palate Within normal limits Comment Completed oral motor exam with pt. She was missing several upper teeth, but reported no difficulty chewing if she takes small bites. Pt presented with symmetrical structures at rest and in motion, though strength and ROM of tongue and lips were mildly reduced. Structure and function of oral mechanism appears WFL for the purposes of speech and swallowing. Food and Liquid Trials Position During Assessment Upright (90 degrees),In bed Liquids Trialed Ice chips,Thin Solids Trialed Puree,Dysphagia Mechanical Administration Type Tea spoon,Cup single sip,Needs some assistance Oral Impairment Within normal limits Oral Phase Comments No anterior loss of bolus. Pt exhibited minimal to no oral residue following trials. Mastication was WFL, slowed movements and pt talked while chewing, but bolus was completely chewed and cleared oral cavity after all PO trials. Did not try regular textures as pt is missing several upper teeth. Pharyngeal Impairment Within normal limits Pharyngeal Phase Comments No overt signs or symptoms of aspiration observed during PO trials. Following trials, pt exhibited consistent cough, which may be due to COVID or silent aspiration. Unable to rule out silent aspiration with bedside swallow evaluation. Pt is not a good candidate for MBS due to difficulty following directions and reported weakness in legs. Recommend thin liquids and dysphagia mechanical diet at this time with continued monitoring and diet advancement as indicated. Fatigue/Endurance Endurance WNL Comment No signs of fatigue observed, though limited trials were complete. NSG reported heart rate is more concern than respiration at this time. Findings Swallowing Function Within functional limits Severity of Swallow Impairment Within functional limits Contributing Factors to Swallow Difficulty following Impairment directions,Reduced oral strength/coordination/ sensation Comment The pt presents with swallowing WFL. She exhibited coughing following swallow assessment, which may be due to COVID or silent aspiration. Unable to rule out silent aspiration with bedside swallow evaluation. Pt is not a good candidate for MBS due to difficulty following directions, co-occurring medical conditions, and reported weakness in legs. Recommend thin liquids and dysphagia mechanical diet at this time with continued monitoring and diet advancement as indicated. Impact on Safety and Functioning Risk for aspiration Recommendations Instrumental Assessment No Swallowing Treatment Yes Frequency Monitor and advance diet as indicated Recommended Solids Dysphagia Mechanical Recommended Liquids Thin Safety Precautions/Swallowing Feed only when alert,Reduce Recommendations distractions,Remain upright ( 90 degrees) during all oral intake,Upright position at least 30 minutes after meals, Small bites and sips when eating,Slow rate; swallow between bites Medication Recommendations As Tolerated Education Patient/Caregiver Education Described results of evaluation,Patient expressed understanding of evaluation, Patient expressed agreement with goals & treatment plans, Patient expressed understanding of safety precautions,Patient expressed understanding of feeding recommendations,Patient requires further education/ training Goals Long-term Goals The pt will safely tolerate least restrictive diet to meet her nutrition and hydration needs.
--- NOTE | 2022-04-27 16:27 | CM.DANOTE ---
Initial Discharge Planning Note: 82 year old female admitted 04/25/22 Covid + and confusion. Payer: Medicare and for Life PCP Nasreen Najera Unable to meet with patient due to Covid + and dementia and per daughter and nurse difficulty communicating. Patient lives with daughter Kayla (retired ER nurse) and son in law in [place]. Daughter states she and her spouse provide all care for patient and it is a good situation. They provide her some personal ADL assist as needed and do all home management and cooking, transportation, etc. Plan: Continue to follow for needs. KIM Discharge Planning/Care Management CM Discharge Assessment Start: 04/27/22 16:21 Freq: Status: Active Protocol: Document 04/27/22 16:22 (Rec: 04/27/22 16:27 [id number]) Discharge Planning Assessment Assigned Floorworker Lasting Mayda Fitzgerald RN/DCP Advance Directives? Yes Advance Directives on File No History Provided By Family Member,Medical Record Has Patient been admitted in last 30 No days? Prior Living Arrangements House Comment with daughter and son in law. Household Members children Type of transporation used prior to Relies on Others admit Independent with ADL's requires some assistance Is patient alert and oriented? patient has dementia, poor communication Needs Assistance With Bathing,Meal Prep,Managing Medications,Home Chores / Shopping DME Already Rented / Owned FWW / Walker Discharge Plan Home Referrals Initiated None needed Additional Comment Continue to monitor for dc needs. Whiteboard Updated in Patient Room with No name and ext. # of Floorworker Lasting Comment Covid + Review Status In Process Next Review Type Continued Stay Review
--- NOTE | 2022-04-27 18:17 | PM.PN.1 ---
Subjective Subjective Date Patient Seen: 04/27/22 Time Patient Seen: 08:00 Interval history: Patient with no complaints today aside from feeling slightly fatigued. O2 removed and sats remained 96-98% with minimal coughing and no shortness of breath. Exam Vital Signs (past 8 hours): - 04/27/22 11:00 04/27/22 15:00 Temperature 97.0 F L 97.0 F L Pulse Rate 93 H 76 Respiratory Rate 16 17 Blood Pressure 117/82 130/89 Pulse Oximetry 96 93 Oxygen Flow Rate 0 0 Fraction of Inspired Oxygen 32 Oxygen Delivery Method Nasal Cannula Oxygen Flow Rate 0 Narrative Exam Narrative: GEN:? no acute distress PULM: clear bilaterally ABD:? Soft, nontender, nondistended EXT: warm and well perfused with no edema NEURO: no focal deficits Objective Labs Result Diagrams: 04/27/22 05:00 04/27/22 05:00 Labs: Laboratory Results - last 24 hr 04/27/22 04/27/22 05:00 05:00 Hgb 12.5 Hct 37.0 Sodium 138 Potassium 3.9 Chloride 106 Carbon Dioxide 23 BUN 42 H Creatinine 1.02 Estimated GFR 55 L BUN/Creatinine Ratio 41.2 H Glucose 87 Calcium 8.1 L Total Bilirubin 0.2 AST 28 ALT 14 Alkaline Phosphatase 55 Total Protein 5.8 L Albumin 2.9 L Globulin 2.9 Albumin/Globulin Ratio 1.0 PFSH Medical History Asthma CVA (cerebral vascular accident) Essential hypertension Paroxysmal atrial fibrillation 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 (CVA) Vascular dementia Surgical History H/O: hysterectomy History of bilateral knee replacement History of ERCP Social History household members: children Smoking Status: Never smoker alcohol intake: never Assessment & Plan Assessment & Plan narrative: 1. Acute hypoxic respiratory failure secondary to COVID, resolved -initially on 6L oxygen, oxygen removed on 04/27 -continue dexamethasone for 5 day course -stop baricitinib 2. Dysphagia -swallowing improving -appreciate speech eval 3. Protein calorie malnutrition, severe -dietary consult 4. Epilepsy -continue keppra 5. Prior cerebrovascular accident - stable 6. Vascular dementia with acute metabolic encephalopathy -appears near baseline 7. Thrombocytopenia Mild at 140.? At baseline, her platelet count is normal. Thrombocytopenia is likely secondary to COVID infection. 8. Paroxysmal atrial fibrillation She is bradycardic today. Suspect this is related to her COVID infection. Holding oral meds as noted. 9. LEONOR Creatinine was 1.22 on admission.? Improved to baseline at 1.02 Patient was discharged today. Discharge order cancelled unknown to me. Apparently discharge was held because patient was felt to not be ambulating at baseline and PT was to see patient but did not see them some reason. Patient remains medically stable for discharge and should have been discharged today. Time Spent With Patient Critical Care time: I spent a total of [] minutes of critical care time on this patient's care today; this time is exclusive of procedural time. Quality VTE Deep Vein Thrombosis/Pulmonary Embolism Present on Admission: No
--- NOTE | 2022-04-27 18:58 | PC.NURSE ---
Pt able to get OOB to Chair, refused to sit for long, but sitting up to watch TV for a short time this evening. Incont of urine/leaking from purewick.Enc to ambulate with PT for DC home in AM, as Pt has considerable mobility issues.
[2022-04-27] MEDS: SODIUM CHLORIDE 0.9% 1,000 ML 60 ML IV (21:01)
[2022-04-28] VITALS: BP 138/88; PULSE 53; RESP 16; TEMP 36.4; O2SAT 96
[2022-04-28 04:00] VITALS: BP 138/63; PULSE 48; RESP 17; TEMP 36.4; O2SAT 98
[2022-04-28] MEDS: PANTOPRAZOLE DR 20 MG TABLET PO (05:43)
--- NOTE | 2022-04-28 07:38 | PC.NURSE ---
End of shift note. Care of patient from [id number]. Patient pleasantly oriented to self only. Cooperative with care. Up to BSC with FWW and one assist. Tolerating think liquids and po pills with no coughing. Plan is to have PT evaluation this am. Is up to chair this am with FWW and one assist. Plan is to discharge home with daughter if patient is able to ambulate with FWW.
[2022-04-28 08:00] VITALS: BP 130/59; PULSE 50; RESP 16; TEMP 36.5; O2SAT 95
[2022-04-28] MEDS: levETIRAcetam 500 MG in SODIUM CHLORIDE 0.9% 100 ML 420 MG IV (08:47)
[2022-04-28] MEDS: HEPARIN 5,000 UNIT/ML VIAL 5000 UNIT SUBCUT (08:52)
[2022-04-28] MEDS: DEXAMETHASONE 10 MG/ML VIAL 6 MG IV (08:52)
[2022-04-28] MEDS: REMDESIVIR 100 MG in SODIUM CHLORIDE 0.9% 230 ML 250 MG IV (10:10)
--- NOTE | 2022-04-28 10:58 | PT.IIE ---
Current Diagnoses COVID-19 (04/25/22) Surgical History (Last Reviewed 04/25/22 @ 13:02 by Mena Gloria DO) H/O: hysterectomy History of bilateral knee replacement History of ERCP Medical History (Last Reviewed 04/25/22 @ 13:02 by Mena Gloria DO) Asthma CVA (cerebral vascular accident) Essential hypertension Paroxysmal atrial fibrillation 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 (CVA) Vascular dementia Physical Therapy Inpatient Evaluation/Re-Eval M1 PT/OT-IP Prior Functional Status Start: 04/28/22 13:40 Freq: NEEDED Status: Active Protocol: Document 04/28/22 10:58 AB (Rec: 04/28/22 13:47 AB [id number]) Medical Review Prior Functional Status Medical History Reviewed Yes Communication with confusion; difficulty following directions; able to answer a few questions but is a poor historian Mobility and Gait pt unable to provide PLOF and home set up; unable to obtain home set up but from EMR: pt lives with daughter and daughter is the caregiver for pt. per nurse: pt's daughter is a retired nurse Social History Household Members children Living Arrangements House Number of Floors (Floors) One Floor Number of Stairs To Enter/Railing? per EMR: pt lives in a one level house without steps to enter Home Environment Standard Height Toilet,Walk in Shower M2 PT-IP Current Condition Start: 04/28/22 13:40 Freq: NEEDED Status: Active Protocol: Document 04/28/22 10:58 AB (Rec: 04/28/22 13:47 AB [id number]) Physical Therapy Current Condition Current Condition Evaluation Date 04/28/22 Treatment Diagnosis UTI; Covid; difficulty in walking Onset Date 04/27/22 M3 PT-IP Subjective Start: 04/28/22 13:40 Freq: NEEDED Status: Active Protocol: Document 04/28/22 10:58 AB (Rec: 04/28/22 13:47 AB [email or web address]) Subjective Physical Therapy Visit Type Type Initial Evaluation Visit Start Time 10:58 Visit Stop Time 11:35 Total Visit Minutes 37 Number of FILTER PRESS OPERATOR Visits 0 M4 PT-IP Mobility and Gait Start: 04/28/22 13:40 Freq: NEEDED Status: Active Protocol: Document 04/28/22 10:58 AB (Rec: 04/28/22 13:47 AB [id number]) PT-Bed Mobility Assessment Supine to Sit Supine to Sit Minimal Assistance PT-Transfer Assessment Sit to and From Stand Sit to and from Stand Minimal Assistance,Moderate Assistance,1 Person Assistance ,Use of Upper Extremities Equipment Transfer Assistive Device Gait Belt,Front Wheeled Walker Orthotic/Prosthetic Devices or Brace: No Transfers Transfer Destination Chair Transfer Technique ambulated Transfer Ability Level of Assist Minimal Assistance,Moderate Assistance,1 Person Assistance ,Use of Upper Extremities Comments Mobility Comments completed supine to sit min A and max cues. able to sit on EOB SBA. completed sit to stand min A to mod A and max cues and ambulated in room using FWW 25 ft min to mod A and max cues with (+) LOB x 2 requiring mod A and max cues. pt sat on chair and positioned. call light and table placed within reach. Gait Assessment Gait Gait Assistance Required: Minimum Assistance,Moderate Assistance,1 Person Assist Assistive Devices Assistive Device Gait Belt,Front Wheeled Walker Orthotic/Prosthetic Devices or Brace: No Gait Deviations General Gait Pattern Antalgic,Step-to Gait Factors Limiting Gait Function Factors Limiting Gait Function Decreased Activity Tolerance, Decreased Strength,Poor Balance,Poor Safety Awareness PT-Balance Assessment Sitting Balance and Reactions Static Sitting Balance Ability Good Dynamic Sitting Balance Ability Good Standing Balance and Reactions Static Standing Balance Ability Fair Dynamic Standing Balance Ability Poor Device Used FWW M5 PT-IP Objective Assessments Start: 04/28/22 13:40 Freq: NEEDED Status: Active Protocol: Document 04/28/22 10:58 AB (Rec: 04/28/22 13:47 AB [id number]) Orientation Orientation/Cognition Level of Alertness Confusional State Orientation Name Safety Awareness Decreased Safety Awareness Memory Description Short Term Impaired,Survey Superintendent Impaired Gross Range of Motion Lower Extremity ROM Assessment Within Functional Limits Strength Lower Extremity Strength Hip 4-/5 Knee 4-/5 Sensation Assessment Sensation Gross Sensation WNL Muscle Tone Muscle Tone WNL Yes M6 PT-IP Treatment Start: 04/28/22 13:40 Freq: NEEDED Status: Active Protocol: Document 04/28/22 10:58 AB (Rec: 04/28/22 13:47 AB [email or web address]) Physical Therapy Treatment Education Education Provided Safety M7 PT-IP Assessment and Plan Start: 04/28/22 13:40 Freq: NEEDED Status: Active Protocol: Document 04/28/22 10:58 AB (Rec: 04/28/22 13:47 AB [email or web address]) PT Summary Assessment and Plan Potential Rehabilitation Potential Fair Status of Condition at Evaluation Evolving Summary Impairments Pain,ROM,Strength,Balance, Coordination,Sensation,Tone, Cognition,Bed Mobility, Transfers,Gait,Activity Tolerance Assessment Summary pt requiring min to mod A using FWW and max cues with all tasks. pt with decrease cognitive level affecting safety awareness and will need 24/7 assist at this time. pt will also benefit from HHPT. Goals Bed Mobility Goal Standby Assistance Transfer Goal Standby Assistance,Front Wheeled Walker Gait Goal Standby Assistance,Front Wheel Walker Gait Distance 150 Days to Meet Goals 10 Frequency of Treatment Frequency Of Treatment Once a Day Treatment Plan Physical Therapy Treatment Plan Bed Mobility Training,Transfer Training,Gait Training, Therapeutic Exercise,Balance Retraining,Discharge Planning, Hot or Cold Pack,Neuromuscular Re-ed,Coordination Retraining Precautions Other Precautions falls; Covid Recommendations To Nursing Amount of Assist Needed 1 Person Assist Discharge Recommendations PT Discharge Recommendations Home with 24/7 Assist Available,Home Health Transportation Needs at Discharge Private Vehicle,Wheelchair/ Cabulance
--- NOTE | 2022-04-28 11:13 | CM.DPC ---
Addendum entered by Clara Zavala R.N. 04/28/22 12:53: Left a message with Aaliyah at [facility] regarding referral. Went ahead and ordered home health P.T, O.T, and bath aide. DC Summary and P.T. note not yet available, so faxed face sheet, face to face, orders, H&P, speech therapy note, H&P, DC instructions which include med sheets. Asked nurse, Luis Angel, to include a [employer] book for patient's daughter, as she is picking her up at ER entrance, since she is also positive with COVID. Original Note: DCP Cont: Called patient's daughter, Kayla Mortensen, who is patient's daughter, and caregiver. She is a retired ER nurse. Patient is supposed to be working with P.T prior to discharge. Patient does have discharge orders today. Daughter is prepared to pick patient up today, but not sure how her current mobility is since she has been in the hospital. Asked her about home health. Daughter is not opposed to this, but last time they came to the home, she fired them. Asked her if there was a preferred agency, and she said, it was [facility], and would be ok to pursue. P: Patient is supposed to discharge home today pending working with P.T. Can order [facility]. Clara Zavala, RENETTA/Manager Java
[2022-04-28] MEDS: ACETAMINOPHEN 325 MG TABLET 650 MG PO (11:17)
[2022-04-28 11:24] VITALS: BP 128/72; PULSE 48; RESP 16; TEMP 36.6; O2SAT 94
--- NOTE | 2022-04-28 18:02 | PM.DS.1 ---
History of Present Illness History of Present Illness Date Patient Seen: 04/25/22 Chief complaint: Confusion, covid (+) Narrative: Per admitting provider: 82-year-old female with underlying history of asthma, prior stroke, epilepsy, hypertension, paroxysmal atrial fibrillation, and likely vascular dementia brought in today with known COVID infection and worsening cognitive status and respiratory symptoms. History is obtained from the patient's daughter as the patient is unable to provide any significant history. Patient's daughter notes although she has no formal diagnosis of dementia, she has tomlin many symptoms. She states sometimes mom does not know who the daughter is, she has ?a lot of word salad ?. After visiting with the patient's PCP and knowing there was not any specific treatment for her, they elected not to pursue any further intervention. Approximately 7 days ago, the patient's daughter and her went [facility] a [facility] for another family member. Unfortunately [facility] who [facility] the [facility] was ill. Two days later, the patient's son-in-law tested positive for COVID. He attempted to quarantine and remained down stairs in their basement while ill. Patient's daughter was caring for the as well as the patient appears 2 days prior to admission around 3:45 p.m., patient began complaining of her back hurting and stated she needed to go to bed. She has a history of back pain related to compression fractures that were sustained during seizures last year. Daughter gave her tramadol and patient went to bed. The daughter states that is not unusual for the patient to sleep up to 20 hours when her back is painful. She remained in bed yesterday and at around noon the patient's daughter went to check on her. She did not want to get up, did not feel an urge to go to the bathroom. She did feel warm and flushed to the patient's daughter. Temperature was elevated at 100.6 axillary. Patient was confused and could not follow commands. She received Tylenol. She subsequently complained of a sore throat and did have some emesis. COVID test was done and it was faintly positive. The daughter contacted the patient's PCP, Dre jha was called in but due to the patient's emesis yesterday the PACS of it was held. Daughter plan to give it this morning but the patient had worsening symptoms. Daughter notes this morning she went in to assess her mom and mom had audible rales. She stated her pulse ox was 86%. Daughter listen to her lungs and noted worsening crackles. The daughter is an ER nurse by profession. Patient was also incontinent which is unusual for her. Due to all of that, she was brought into the emergency department for evaluation. In the emergency department, she initially only required 2 L of oxygen. While in the emergency department her oxygen need went up to 3 L. Daughter agreed with remdesivir and dexamethasone. Admission was subsequently recommended. Since admission, patient has been evaluated by nursing and was noted to have difficulty managing her secretions. She failed a bedside swallow evaluation. She is now NPO. Patient is unable to give much history but does admit to feeling short of breath. Daughter notes when she 1st brought the patient to [place] she weighed 135 lb. Approximately 1 year ago she developed frequent falls, was not remembering the falls. She has sustained vertebral fractures as results which has led to her back pain. In May of 2021, she had an episode where she was quite confused. She was brought into the emergency department and a stroke was found. Additionally, they diagnosis seizures at that time. In October of this year, patient developed abdominal pain, nausea and vomiting. She was found to have cholelithiasis/cholecystitis. She had 2 meneses mal seizures. She was seen at the [facility] and admitted for 1 week. At that time she was too ill to undergo surgery so received multiple IV antibiotics and ultimately sent home. Approximately 1 month later her symptoms recurred. She was seen at [facility], admitted, underwent a laparoscopic cholecystectomy and was found to have a gangrenous gallbladder. During that time patient did lose significant weight and her weight had dropped down to 110 lb. Patient was seen by her primary care provider, started on b.i.d. Marinol, and started eating well. Subsequently the dose was decreased to once daily. Over the past month or so, daughter reports the patient had been eating very well. No dysphagia. She had actually gained weight. On admission today, her weight was 114 lb. Discharge Providers Provider Date of admission: 04/25/22 13:32 Discharge Date: 04/28/22 Primary care physician: Nasreen Najera DO Consults: 04/25/22 18:12 Consult to Speech Therapy Evaluate & Treat Comment: Physician Instructions: Evaluate and treat 04/27/22 14:06 Consult to Physical Therapy Evaluate & Treat Comment: Decondition r/t covid Physician Instructions: Evaluate and Treat 04/28/22 12:44 Consult to Home Health Routine Comment: Reason For Exam: Home Health P.T, O.T, bath aide. Discharge provider: Manav Cavanaugh MD Summary Hospital Course Discharge Diagnosis: 1. Acute hypoxemic respiratory failure secondary to COVID 2. Dysphagia, improved 3. Severe protein calorie malnutrition 4. Epilepsy 5. History of CVA 6. Vascular dementia and acute encephalopathy 7. Thrombocytopenia 8. Paroxysmal atrial fibrillation Hospital Course: Ms. Bello was admitted with respiratory failure, she was initially requiring significant oxygen at 6L. She was COVID positive and started on steroids, remdesivir and baricitinib. She quickly improved over the next few days. She was able to wean off oxygen with sats >95%. She did initially have dysphagia but that improved as her illness improved as well. She was quite deconditioned on discharge and will be discharged home with home health. She was given three additional days of steroids for her illness. Exam Vital Signs (past 8 hours): - 04/28/22 11:24 Temperature 98 F Pulse Rate 48 L Respiratory Rate 16 Blood Pressure 128/72 Pulse Oximetry 94 Oxygen Flow Rate 0 Fraction of Inspired Oxygen 32 Oxygen Delivery Method Room Air Oxygen Flow Rate 0 Narrative Exam Narrative: GEN:? no acute distress PULM: clear bilaterally ABD:? Soft, nontender, nondistended EXT: warm and well perfused with no edema NEURO: no focal deficits Objective Labs Result Diagrams: 04/27/22 05:00 04/27/22 05:00 COUNT INCLUDES THE [facility] Medical History Asthma CVA (cerebral vascular accident) Essential hypertension Paroxysmal atrial fibrillation 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 (CVA) Vascular dementia Surgical History H/O: hysterectomy History of bilateral knee replacement History of ERCP Social History household members: children Smoking Status: Never smoker alcohol intake: never Discharge Plan Discharge Plan Patient Disposition: Home Provider Discharge Comment: Ms. Bello was admitted with COVID pneumonia. She initially required oxygen, but improved quickly and on day of discharge she was able to be off oxygen and was discharged home with three more days of steroids. Discharge orders & Medications Prescriptions: New dexamethasone 6 mg tablet 6 mg PO DAILY Qty: 3 0RF Continued albuterol sulfate 90 mcg/actuation HFA aerosol inhaler 2 puff INHALATION DAILY PRN (Reason: Shortness Of Breath Or Wheezing) ondansetron 4 mg tablet,disintegrating 4 mg translingual Q8H PRN (Reason: Nausea) lidocaine 5 % adhesive patch,medicated 1 patch transdermal BID PRN (Reason: Pain (Scale Score 4-6)) dronabinol 2.5 mg capsule 2.5 mg PO BID verapamil 240 mg tablet extended release 240 mg PO DAILY aspirin 81 mg Tablet 81 mg PO DAILY levetiracetam 250 mg tablet 500 mg PO BID calcitonin (salmon) 200 unit/actuation spray,non-aerosol 1 spray intranasal DAILY lisinopril 2.5 mg tablet 2.5 mg PO QPM PRN (Reason: Hypertension) Rx Instructions: sliding dose: less than 100 = 0; 100-140 = 2.5mg, greater than 140 =5mg Discontinued verapamil 240 mg tablet extended release 240 mg PO DAILY Follow up/Referrals: Nasreen Najera DO [Primary Care Provider] - Diet/Activity/Treatments Diet: Regular Visit Report/Discharge Packet Instructions: DI for Heart Failure Discharge Data Primary Care Provider: Nasreen Najera Quality VTE Deep Vein Thrombosis/Pulmonary Embolism Present on Admission: No
== END 2022-04-28 13:35 | disposition home health service (06) | DRG 177 ==
LOC: ED 13:32 → AC 13:33
PROVIDERS: Admitting Provider Family Medicine; Emergency Provider Emergency Medicine; PCP Internal Medicine; Referring Provider Emergency Medicine; Visit Provider Family Medicine
DX: U07.1 COVID-19 (principal); J12.82 Pneumonia due to coronavirus disease 2019; J96.01 Acute respiratory failure with hypoxia; G93.41 Metabolic encephalopathy; E43 Unspecified severe protein-calorie malnutrition; N17.9 Acute kidney failure, unspecified; G40.909 Epilepsy, unspecified, not intractable, without status epilepticus; I48.0 Paroxysmal atrial fibrillation; D69.6 Thrombocytopenia, unspecified; R13.10 Dysphagia, unspecified; F01.50 Vascular dementia, unspecified severity, without behavioral disturbance, psychotic disturbance, mood disturbance, and anxiety; I10 Essential (primary) hypertension; J45.909 Unspecified asthma, uncomplicated; Z68.22 Body mass index [BMI] 22.0-22.9, adult; Z66 Do not resuscitate
CPT/HCPCS: 36415; 51701; 71045; 80053; 81001; 82550; 82962; 83605; 83880; 84145; 84484; 85014; 85018; 85025; 87040; 87086; 87635; 92610; 93005; 93010; 94762; 96365; 96366; 96375; 97162; 99284; C9803; J1100; J1644; J1650; J1953; J2405

== ENCOUNTER 2022-05-04 22:01 | Inpatient (IN) | payer MEDICARE, OTHER, SELFPAY ==
[2022-04-25 14:59] VITALS: BMI 19.5
[2022-05-04 22:07] VITALS: BP 130/84; PULSE 64; RESP 20; TEMP 37.1; O2SAT 95
[2022-05-04 22:19] VITALS: PULSE 70; O2SAT 95
--- NOTE | 2022-05-04 22:24 | DI.RAD.S_ITS ---
PROCEDURE: XR CHEST 1V INDICATIONS: persistent fatigue day 10 covid TECHNIQUE: One view of the chest was acquired. COMPARISON: [facility], CR, XR CHEST 1V, 04/25/2022, 12:15. FINDINGS: Surgical changes and devices: Cholecystectomy clips. Left humeral neck hardware. Lungs and pleura: Lungs are clear. No pleural effusions or pneumothorax. Mediastinum: Mediastinal contours appear normal. Heart size is normal. Bones and chest wall: No suspicious bony lesions. Overlying soft tissues appear unremarkable. IMPRESSION: No acute cardiopulmonary disease. Dictated by: Willa Dawkins M.D. on 05/04/2022 at 23:51 Approved by: Willa Dawkins M.D. on 05/04/2022 at 23:51
[2022-05-04 22:29] LABS: Add Manual Diff / Slide Review NO; Basophils Absolute Auto 0 /uL (0-100); Basophils Percent Auto 0.2 % (0-2); Eosinophils Absolute Auto 200 /uL (0-450); Eosinophils Percent Auto 2.1 % (2-4); Hematocrit 39.8 % (36-46); Hemoglobin 13.3 g/dL (12.0-16.0); Lymphocytes Absolute Auto 1600 /uL (1100-4500); Lymphocytes Percent Auto 15.9 % (25-40); Mean Corpuscular HGB Conc 33.4 % (30-36); Mean Corpuscular Hemoglobin 28.7 PG (26-34); Mean Corpuscular Volume 86.1 fL (80-100); Monocytes Absolute Auto 1100 /uL (0-900); Monocytes Percent Auto 11.5 % (3-14); Neutrophils Absolute Auto 7000 /uL (1500-7000); Neutrophils Percent Auto 70.3 % (50-75); Platelet Count 256 X10^3/uL (150-400); Red Blood Cell Count 4.63 X10^6/uL (4.0-5.2); Red Cell Distribution Width 14.3 % (11.6-14.8)
[2022-05-04 22:30] VITALS: BP 138/74; PULSE 78; O2SAT 96
[2022-05-04 22:39] LABS: Alanine Aminotransferase 16 IU/L (<35); Albumin Globulin Ratio 1.1 (1.0-2.8); Alkaline Phosphatase 67 U/L (38-126); Aspartate Aminotransferase 27 IU/L (14-36); BUN Creatinine Ratio 23.2 (6-22); Bilirubin Total 0.9 mg/dL (0.2-1.3); Blood Urea Nitrogen 23 mg/dL (7-17); Calcium 8.3 mg/dL (8.4-10.2); Carbon Dioxide 29 mmol/L (22-32); Chloride 102 mmol/L (98-107); Estimated Glomerular Filt Rate 57 mL/min (>60); Globulin 2.8 g/dL (1.7-4.1); Glucose 98 mg/dL (80-110); HEMOLYSIS 19 (0-50); Magnesium 1.8 mg/dL (1.6-2.3); Sodium 137 mmol/L (137-145); Total Protein 5.8 g/dL (6.3-8.2)
--- NOTE | 2022-05-04 22:48 | ED_ITS ---
HPI - General Adult General Chief complaint: Weakness Stated complaint: Weakness/ Confusion Time Seen by Provider: 05/04/22 22:04 Source: patient, family and EMS Mode of arrival: EMS History of Present Illness HPI narrative: 82-year-old woman with a history of vascular dementia, prior strokes with subsequent [place] mal seizure, hypertension and atrial fibrillation on aspirin with COVID diagnosis on April 24. She was admitted on the subsequently treated withdexamethasone, remdisivir and baricitinib. She subsequently improved and was discharged home without oxygen requirements. She did well for couple of days but over the last 3 days has gotten increasingly weak to the point that she is unable to get out of bed she is incontinent of both urine and stool which is very unusual for her, she is not interested in eating or drinking and her daughter, her primary caregiver, describes tbsp of liquid only over the last 2 days. She helped her mother up to the bathroom today and walking back to bed her mother had a syncopal episode with the daughter able to control her slide to the floor diabetic episode or a seizure as she has not been able to keep any of her seizure medications in. She is worried that with the worsening weakness that she no longer is able to provide appropriate care to keep her mother safe at home. In reviewing prior notes it does look like she failed a swallow evaluation with recent hospital evaluation. Patient is DNR/DNI with comfort measures Related Data Home Medications Medication Instructions Recorded Confirmed aspirin 81 mg tablet 81 mg PO DAILY 08/17/21 04/25/22 calcitonin (salmon) 200 1 spray intranasal DAILY 08/17/21 04/25/22 unit/actuation nasal spray levetiracetam 250 mg tablet 500 mg PO BID 08/17/21 04/25/22 lisinopril 2.5 mg tablet 2.5 mg PO QPM PRN Hypertension 08/17/21 04/25/22 albuterol sulfate 90 mcg/actuation 2 puff inhalation DAILY PRN 10/26/21 04/25/22 aerosol inhaler Shortness Of Breath Or Wheezing dronabinol 2.5 mg capsule 2.5 mg PO BID 10/26/21 04/25/22 lidocaine 5 % topical patch 1 patch transdermal BID PRN Pain 10/26/21 04/25/22 (Scale Score 4-6) ondansetron 4 mg disintegrating 4 mg translingual Q8H PRN Nausea 10/26/21 04/25/22 tablet verapamil 240 mg tablet,extended 240 mg PO DAILY 04/25/22 04/25/22 release Previous Rx's Medication Instructions Recorded dexamethasone 6 mg tablet 6 mg PO DAILY #3 tabs 04/27/22 Allergies Allergy/AdvReac Type Severity Reaction Status Date / Time Penicillins AdvReac Unknown Verified 04/26/22 07:24 Review of Systems Review of Systems Narrative: Remainder of complete review of systems is otherwise unremarkable except for that included in the HPI. Patient History Medical History Asthma CVA (cerebral vascular accident) Essential hypertension Paroxysmal atrial fibrillation 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 (CVA) Vascular dementia Surgical History H/O: hysterectomy History of bilateral knee replacement History of ERCP Social History household members: children Smoking Status: Never smoker alcohol intake: never Smoking Status: Never smoker Substance Use Type: does not use Exam Initial Vital Signs Initial Vital Signs: Vital Signs Temperature 98.8 F 05/04/22 22:07 Pulse Rate 64 05/04/22 22:07 Respiratory Rate 20 05/04/22 22:07 Blood Pressure 130/84 05/04/22 22:07 Pulse Oximetry 95 05/04/22 22:07 Oxygen Delivery Method 05/04/22 22:07 General: Frail, chronically ill-appearing, weak, minimally interactive with exam and history taking HEENT: Moist mucous membranes, normal sclera with reactive pupils, Neck: No JVD, supple Respiratory: Lungs with bi basilar crackles and rhonchi in the right base. No wheeze. Full and symmetrical air movement Cardiac: Irregular rhythm, no murmurs appreciated. Abdomen: Soft, nontender, good bowel tones, no flank pain Skin: Warm and dry, no rashes Neurologic: Moving all extremities, globally weak, Extremities: No trauma, well perfused, no lower extremity edema Psych: Minimally interactive Course Orders Ordered: ED Orders 05/04/22 22:15 BNP [NT-proBNP (BNP-Adult 18+)] Stat COVID19 -Nasal RAPID/Pre-Proc Stat Complete Blood Count AUTO DIFF Stat Comprehensive Metabolic Panel Stat Levetiracetam Keppra Stat Magnesium Stat Procalcitonin Stat 05/04/22 22:24 XR chest 1V Stat EKG-12 Lead Stat 05/04/22 22:59 Urinalysis and Microscopic Stat Urine Culture Stat POTASSIUM CHLORIDE IN WATER (Potassium Cl 10 Meq/100 Ml Becka) 10 meq in 100 mls @ 100 mls/hr IV Q1H RAYMUNDO Stop: 05/05/22 03:44 Discontinued Medications Furosemide (Furosemide 40 Mg/4 Ml Vial) 40 mg IV NOW ONE Stop: 05/04/22 23:39 Ceftriaxone Sodium 2,000 mg/ (Sodium Chloride) 100 mls @ 200 mls/hr IV NOW ONE Stop: 05/04/22 23:39 Vital Signs Vital signs: Vital Signs - 8 hr 05/04/22 22:07 05/04/22 22:19 Temperature 98.8 F Pulse Rate 64 70 Respiratory Rate 20 Blood Pressure 130/84 Pulse Oximetry 95 95 Oxygen Delivery Method Room Air Room Air Medical Decision Making Lab Data Result diagrams: 05/04/22 22:15 05/04/22 22:15 Labs: Lab Results 05/04/22 05/04/22 05/04/22 Range/Units 22:15 22:15 22:15 WBC 10.0 (4.5-11.0) X10^3/uL RBC 4.63 (4.0-5.2) X10^6/uL Hgb 13.3 (12.0-16.0) g/dL Hct 39.8 (36-46) % MCV 86.1 (80-100) fL MCH 28.7 (26-34) PG MCHC 33.4 (30-36) % RDW 14.3 (11.6-14.8) % Plt Count 256 (150-400) X10^3/uL Neut % (Auto) 70.3 (50-75) % Lymph % (Auto) 15.9 L (25-40) % [place] % (Auto) 11.5 (3-14) % Eos % (Auto) 2.1 (2-4) % Baso % (Auto) 0.2 (0-2) % Neut # (Auto) 7000 (7640-2238) /uL Lymph # (Auto) 1600 (3917-4908) /uL [place] # (Auto) 1100 H (0-900) /uL Eos # (Auto) 200 (0-450) /uL Baso # (Auto) 0 (0-100) /uL Sodium 137 (137-145) mmol/L Potassium 3.0 L (3.4-5.1) mmol/L Chloride 102 (98-107) mmol/L Carbon Dioxide 29 (22-32) mmol/L BUN 23 H (7-17) mg/dL Creatinine 0.99 (0.52-1.04) mg/dL Estimated GFR 57 L (>60) mL/min BUN/Creatinine Ratio 23.2 H (6-22) Glucose 98 (80-110) mg/dL Calcium 8.3 L (8.4-10.2) mg/dL Magnesium 1.8 (1.6-2.3) mg/dL Total Bilirubin 0.9 (0.2-1.3) mg/dL AST 27 (14-36) IU/L ALT 16 (<35) IU/L Alkaline Phosphatase 67 (38-126) U/L NT-Pro-B Natriuret Pep 3040 H (<450) pg/mL Total Protein 5.8 L (6.3-8.2) g/dL Albumin 3.0 L (3.5-5.0) g/dL Globulin 2.8 (1.7-4.1) g/dL Albumin/Globulin Ratio 1.1 (1.0-2.8) Procalcitonin 0.08 (<0.5) ng/mL Urine Color Urine Appearance Urine pH (4.5-8.0) Ur Specific Filer (1.000-1.035) Urine Protein (Negative) Urine Glucose (UA) (Negative) g/dL Urine Ketones (NEGATIVE) Urine Occult Blood (Negative) Urine Nitrate (Negative) Urine Bilirubin (NEGATIVE) Urine Urobilinogen (0.2) E.U./dL Ur Leukocyte Esterase (NEGATIVE) Urine RBC (0-5/HPF) Urine WBC (0-5/HPF) Ur Squamous Epith Cells (0-5/HPF) Urine Bacteria (None) Ur Culture Indicated? SARS-CoV-2 (PCR) (Negative) 05/04/22 05/04/22 Range/Units 22:15 22:59 WBC (4.5-11.0) X10^3/uL RBC (4.0-5.2) X10^6/uL Hgb (12.0-16.0) g/dL Hct (36-46) % MCV (80-100) fL MCH (26-34) PG MCHC (30-36) % RDW (11.6-14.8) % Plt Count (150-400) X10^3/uL Neut % (Auto) (50-75) % Lymph % (Auto) (25-40) % [place] % (Auto) (3-14) % Eos % (Auto) (2-4) % Baso % (Auto) (0-2) % Neut # (Auto) (0898-6945) /uL Lymph # (Auto) (9501-6335) /uL [place] # (Auto) (0-900) /uL Eos # (Auto) (0-450) /uL Baso # (Auto) (0-100) /uL Sodium (137-145) mmol/L Potassium (3.4-5.1) mmol/L Chloride (98-107) mmol/L Carbon Dioxide (22-32) mmol/L BUN (7-17) mg/dL Creatinine (0.52-1.04) mg/dL Estimated GFR (>60) mL/min BUN/Creatinine Ratio (6-22) Glucose (80-110) mg/dL Calcium (8.4-10.2) mg/dL Magnesium (1.6-2.3) mg/dL Total Bilirubin (0.2-1.3) mg/dL AST (14-36) IU/L ALT (<35) IU/L Alkaline Phosphatase (38-126) U/L NT-Pro-B Natriuret Pep (<450) pg/mL Total Protein (6.3-8.2) g/dL Albumin (3.5-5.0) g/dL Globulin (1.7-4.1) g/dL Albumin/Globulin Ratio (1.0-2.8) Procalcitonin (<0.5) ng/mL Urine Color Yellow Urine Appearance Cloudy Urine pH 6.5 (4.5-8.0) Ur Specific Filer 1.020 (1.000-1.035) Urine Protein 2+ H (Negative) Urine Glucose (UA) Negative (Negative) g/dL Urine Ketones 1+ H (NEGATIVE) Urine Occult Blood 3+ H (Negative) Urine Nitrate Positive H (Negative) Urine Bilirubin Negative (NEGATIVE) Urine Urobilinogen 1.0 (0.2) E.U./dL Ur Leukocyte Esterase 3+ H (NEGATIVE) Urine RBC 0-1/hpf (0-5/HPF) Urine WBC >100/hpf H (0-5/HPF) Ur Squamous Epith Cells 0-1 /hpf (0-5/HPF) Urine Bacteria Many (>30) H (None) Ur Culture Indicated? Specimen cultured SARS-CoV-2 (PCR) Positive H (Negative) Imaging Data Chest x-ray: Radiologist's Impression: FINDINGS:? ? Surgical changes and devices:? Cholecystectomy clips.? Left humeral neck hardware. ? Lungs and pleura:? Lungs are clear.? No pleural effusions or pneumothorax.? ? Mediastinum:? Mediastinal contours appear normal.? Heart size is normal.? ? Bones and chest wall:? No suspicious bony lesions.? Overlying soft tissues appear unremarkable.? ? IMPRESSION:? No acute cardiopulmonary disease.? ? ? Dictated by: Willa Dawkins M.D. on 05/04/2022 at 23:51 ? ? ECG Data Interpretation: Atrial fibrillation at a rate of [address] T wave changes MDM Narrative Medical decision making narrative: 82-year-old woman on day 10 of COVID symptoms admitted to the hospital and discharged home on 04/28 after improvement with steroids and antivirals with 3-4 days of significant increasing weakness and decreased oral intake. She remains COVID positive. Has an elevated BNP with crackles appreciated on clinical exam suggesting acute congestive heart failure. This is a new diagnosis for her. Her potassium is low at 3.0 which may be contributing to her overall weakness and will be replaced. She also appears to have urinary tract infection without evidence of sepsis and we will begin treating the UTI with ceftriaxone. Care is reviewed with the hospitalist service. Patient will be admitted. Findings are shared with patient and her daughter. Patient remains DNR DNI. Discussed with the hospitalist service and patient is admitted Discharge Plan Departure Patient Disposition: Admitted As Inpatient Clinical Impression: COVID-19, Acute UTI, Acute hypokalemia, Acute CHF Admit Date/Time: 05/04/22 23:49 Admit Provider: April Francois
[2022-05-04 22:55] LABS: Procalcitonin 0.08 ng/mL (<0.5)
[2022-05-04 23:00] VITALS: BP 132/78; PULSE 73; O2SAT 96
[2022-05-04 23:19] LABS: NT-proBNP (BNP-Adult 18+) 3040 pg/mL (<450)
[2022-05-04 23:24] LABS: Appearance Urine UA CLOUDY; Bilirubin Urine UA NEGATIVE (NEGATIVE); Color Urine UA YELLOW; Glucose Urine UA NEGATIVE (Negative); Ketones Urine UA 1+ (NEGATIVE); Leukocyte Esterase Urine UA 3+ (NEGATIVE); Nitrite Urine UA POSITIVE (Negative); Occult Blood Urine UA 3+ (Negative); Protein Urine UA 2+ (Negative)
[2022-05-04 23:25] LABS: pH Urine UA 6.5 (4.5-8.0)
[2022-05-04 23:29] LABS: Bacteria Urine Many (>30); Culture Indicated Urine Specimen Cultured; RBC Urine 0-1/HPF (0-5/HPF); Squamous Epithelial Cell Urine 0-1 /HPF (0-5/HPF); WBC Urine >100/HPF (0-5/HPF)
[2022-05-04 23:30] VITALS: PULSE 61; O2SAT 97
[2022-05-04 23:31] VITALS: BP 111/60; PULSE 64; O2SAT 97
[2022-05-04 23:33] LABS: COVID19 -Nasal RAPID POSITIVE (Negative)
[2022-05-05] VITALS (10 sets, daily range): BP systolic 103–127; BP diastolic 55–74; PULSE 50–78; RESP 16–22; TEMP 36.2–36.7; O2SAT 95–98; BMI 23.9
[2022-05-05] MEDS: FUROSEMIDE 40 MG/4 ML VIAL IV
[2022-05-05] MEDS: cefTRIAXone 2,000 MG in SODIUM CHLORIDE 0.9% 100 ML 200 MG IV
[2022-05-05] MEDS: levETIRAcetam 500 MG in SODIUM CHLORIDE 0.9% 100 ML 420 MG IV (00:58)
[2022-05-05] MEDS: PIPERACILLIN/TAZO 4.5 GM in SODIUM CHLORIDE 0.9% 100 ML IV (02:05)
--- NOTE | 2022-05-05 02:10 | P.HP_ITS ---
History of Present Illness History of Present Illness Date Patient Seen: 05/05/22 Time Patient Seen: 02:00 Chief complaint: Weakness/ Confusion Narrative: Patient is unable to provide a history as it is both difficult to hear her due to having weak voice and I am not sure what she is telling me makes any sense. History is obtained from her daughter Kayla Mortensen, notes from the emergency department provider as well as sign-out. Rose Mary Bello is 82-year-old woman with a history of vascular dementia, prior strokes with subsequent [place] mal seizure, hypertension and atrial fibrillation on aspirin with COVID diagnosis on April 24.? She was admitted on April 25 and discharged on April 28 treated with dexamethasone, remdesivir and baricitinib.? She subsequently improved and was discharged home without oxygen.? She did well for the first 3 days but over the last 3 days has gotten increasingly weak to the point that she is unable to get out of bed. Daughter stated on Wednesday, she was assisting her returning from the bathroom to her bedroom when she collapsed but caught her. She did not see her mother's expression so she is not aware of the patient had a seizure or was just weak. She was and is incontinent of both urine and stool which is very unusual for her, she has not been interested in eating or drinking and her daughter, her primary caregiver, describes tbsp of liquid cough mediucine only over the last 2 days.? Daughter states she has not been able to keep any of her seizure medications in.? She stated to the ED provider that she is worried that with the worsening weakness that she no longer is able to provide appropriate care to keep her mother safe at home.? Both the daughter and son-in-law live out of state but have been keeping the patient at a summer home in [place] because it is more accessible for her. It sounds like they are in the process of renovating their own home in [place] to make it more accessible and closer for them to monitor her. Patient's daughter is a retired ER nurse. In reviewing prior notes, she failed a swallow evaluation with recent hospital evaluation concerning for aspiration and recommended dysphasia mechanical with thin liquids.? Patient is DNR/DNI with limited intervention and this was confirmed with her daughter who is also her POA. Patient is day 10 of her COVID positivity. Family history is unavailable as the patient was adopted by her uncle and aunt in law and never had any contact with her biological mother. In the emergency department chest x-ray was negative for any acute cardiopulmonary process. She is afebrile, blood pressure 103/57, heart rate 53, respiratory rate 16, oxygen saturation of 96% on room air she weighs 159.4 kg with a BMI of 19.5. White count is unremarkable, potassium is low at 3.0 creatinine is 0.99 with an EGFR of 57 BUN is 23 calcium is 8.3 corrected to 9.1 within normal limits proBNP is 3040 albumin is low at 3.0 procalcitonin is 0.8, urinalysis is grossly positive for a UTI and will be cultured, and as stated before COVID-19 PCR is positive. Patient History Medical History Asthma CVA (cerebral vascular accident) Essential hypertension Paroxysmal atrial fibrillation 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 (CVA) Vascular dementia Surgical History H/O: hysterectomy History of bilateral knee replacement History of ERCP Family & Social History Family history unavailable: Yes Social History: household members children Tobacco & Substance use: Smoking Status Never smoker alcohol intake never Substance Use Type does not use Meds Home Medications and Allergies Home Medications Medication Instructions Recorded Confirmed Type aspirin 81 mg tablet 81 mg PO DAILY 08/17/21 05/05/22 History calcitonin (salmon) 200 1 spray intranasal DAILY 08/17/21 05/05/22 History unit/actuation nasal spray levetiracetam 250 mg tablet 500 mg PO BID 08/17/21 05/05/22 History lisinopril 2.5 mg tablet 2.5 mg PO QPM PRN Hypertension 08/17/21 04/25/22 History albuterol sulfate 90 mcg/actuation 2 puff inhalation DAILY PRN 10/26/21 04/25/22 History aerosol inhaler Shortness Of Breath Or Wheezing dronabinol 2.5 mg capsule 2.5 mg PO DAILY 10/26/21 05/05/22 History lidocaine 5 % topical patch 1 patch transdermal BID PRN Pain 10/26/21 04/25/22 History (Scale Score 4-6) ondansetron 4 mg disintegrating 4 mg translingual Q8H PRN Nausea 10/26/21 04/25/22 History tablet verapamil 240 mg tablet,extended 240 mg PO DAILY 04/25/22 04/25/22 History release dexamethasone 6 mg tablet 6 mg PO DAILY #3 tabs 04/27/22 Rx verapamil 240 mg tablet,extended 240 mg PO DAILY 05/05/22 05/05/22 History release Allergies Allergy/AdvReac Type Severity Reaction Status Date / Time Penicillins AdvReac Unknown Verified 04/26/22 07:24 Review of Systems Review of Systems ROS: Yes unobtainable due to mental status Exam Vital Signs (past 8 hours): - 05/04/22 22:07 05/04/22 22:19 05/04/22 22:30 Temperature 98.8 F Pulse Rate 64 70 Respiratory Rate 20 Blood Pressure 130/84 138/74 Pulse Oximetry 95 95 Oxygen Delivery Method Room Air Room Air Oxygen Flow Rate 05/04/22 22:30 05/04/22 23:00 05/04/22 23:00 Temperature Pulse Rate 78 73 Respiratory Rate Blood Pressure 132/78 Pulse Oximetry 96 96 Oxygen Delivery Method Oxygen Flow Rate 05/04/22 23:30 05/04/22 23:31 05/04/22 23:31 Temperature Pulse Rate 61 64 Respiratory Rate Blood Pressure 111/60 Pulse Oximetry 97 97 Oxygen Delivery Method Oxygen Flow Rate 05/05/22 00:00 05/05/22 00:00 05/05/22 00:23 Temperature Pulse Rate 76 57 L Respiratory Rate Blood Pressure 109/69 Pulse Oximetry 95 Oxygen Delivery Method Oxygen Flow Rate 05/05/22 00:30 05/05/22 00:52 05/05/22 01:00 Temperature Pulse Rate 61 Respiratory Rate Blood Pressure 110/55 L 120/62 Pulse Oximetry 96 Oxygen Delivery Method Oxygen Flow Rate 05/05/22 01:00 05/05/22 02:02 Temperature 97.9 F Pulse Rate 50 L 53 L Respiratory Rate 16 Blood Pressure 103/57 L Pulse Oximetry 95 96 Oxygen Delivery Method Oxygen Flow Rate 0 Oxygen Delivery Method Room Air Oxygen Flow Rate 0 Narrative Exam Narrative: Gen: Arousable, ill-appearing 82-year-old female HEENT: normocephalic, atraumatic, conjunctiva clear, sclera non-icteric, oral mucosa pink and moist Neck: supple, full ROM, no JVD, trachea is midline Resp: Lungs CTA, non-labored breathing CV: RRR, no murmur or rubs Abd: soft, non-tender, normoactive BTs Skin: no lesions or rashes, dry and intact Neuro: Speech barely audible and difficult to understand Extremities: Patient is bedbound so unable to ascertain if she is ambulatory, by history she is ambulatory with a walker. Negative Bill?s sign Psyche: unable to ascertain Objective Labs Result Diagrams: 05/04/22 22:15 05/04/22 22:15 Labs: Laboratory Results - last 24 hr 05/04/22 05/04/22 05/04/22 22:15 22:15 22:15 WBC 10.0 RBC 4.63 Hgb 13.3 Hct 39.8 MCV 86.1 MCH 28.7 MCHC 33.4 RDW 14.3 Plt Count 256 Neut % (Auto) 70.3 Lymph % (Auto) 15.9 L [place] % (Auto) 11.5 Eos % (Auto) 2.1 Baso % (Auto) 0.2 Neut # (Auto) 7000 Lymph # (Auto) 1600 [place] # (Auto) 1100 H Eos # (Auto) 200 Baso # (Auto) 0 Sodium 137 Potassium 3.0 L Chloride 102 Carbon Dioxide 29 BUN 23 H Creatinine 0.99 Estimated GFR 57 L BUN/Creatinine Ratio 23.2 H Glucose 98 Calcium 8.3 L Magnesium 1.8 Total Bilirubin 0.9 AST 27 ALT 16 Alkaline Phosphatase 67 NT-Pro-B Natriuret Pep 3040 H Total Protein 5.8 L Albumin 3.0 L Globulin 2.8 Albumin/Globulin Ratio 1.1 Procalcitonin 0.08 Urine Color Urine Appearance Urine pH Ur Specific [place] Urine Protein Urine Glucose (UA) Urine Ketones Urine Occult Blood Urine Nitrate Urine Bilirubin Urine Urobilinogen Ur Leukocyte Esterase Urine RBC Urine WBC Ur Squamous Epith Cells Urine Bacteria Ur Culture Indicated? SARS-CoV-2 (PCR) 05/04/22 05/04/22 22:15 22:59 WBC RBC Hgb Hct MCV MCH MCHC RDW Plt Count Neut % (Auto) Lymph % (Auto) [place] % (Auto) Eos % (Auto) Baso % (Auto) Neut # (Auto) Lymph # (Auto) [place] # (Auto) Eos # (Auto) Baso # (Auto) Sodium Potassium Chloride Carbon Dioxide BUN Creatinine Estimated GFR BUN/Creatinine Ratio Glucose Calcium Magnesium Total Bilirubin AST ALT Alkaline Phosphatase NT-Pro-B Natriuret Pep Total Protein Albumin Globulin Albumin/Globulin Ratio Procalcitonin Urine Color Yellow Urine Appearance Cloudy Urine pH 6.5 Ur Specific [place] 1.020 Urine Protein 2+ H Urine Glucose (UA) Negative Urine Ketones 1+ H Urine Occult Blood 3+ H Urine Nitrate Positive H Urine Bilirubin Negative Urine Urobilinogen 1.0 Ur Leukocyte Esterase 3+ H Urine RBC 0-1/hpf Urine WBC >100/hpf H Ur Squamous Epith Cells 0-1 /hpf Urine Bacteria Many (>30) H Ur Culture Indicated? Specimen cultured SARS-CoV-2 (PCR) Positive H Assessment & Plan Assessment & Plan narrative: Rose Mary Bello is an 82-year-old female admitted to the inpatient service for further management and treatment of a urinary tract infection. Urinary tract infection, acute, present on admission and resolved from prior admission on April 25 to . * She was previously treated with IV ceftriaxone * Start IV Zosyn 4.5 g loading dose followed by 3.75 g IV q.8 hours starting at 9:00 a.m. Hypokalemia likely secondary to dehydration * Her admitting potassium was 3.0 and was to have been started on 40 mEq potassium IV riders Anorexia unknown if intentional or involuntary * Patient takes dronabinol 2.5 mg p.o. daily and had previously been on twice daily dosing, we will provide if the patient can swallow Acute on chronic heart failure unknown if with the a preserved or reduced ejection fraction * Patient's proBNP was 3040 and patient was given IV Lasix 40 mg x 1 in the emergency department Seizure disorder, chronic * She was given IV Keppra in the emergency department 500 mg, and if appropriate will start Keppra 500 mg p.o. 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 daily if her blood pressure can support it VTE Prophylaxis: Wells risk score 1.5 X Enoxaparin 40 mg subQ once daily X Bilateral SCDs Patient is admitted to the inpatient service due to the severity of disease, risks of further disease progression and this stay is expected to exceed 2 midnights. FEN: IV fluids: saline lock, diet: Heart healthy pending swallow eval, labs: CBC, C/BMP, liver enzymes, Mag, PT/INR Consultants None Dispo: unknown at this time Code status: DNR/DNI as discussed with Kayla Mortensen, her daughter, surrogate and POA. [X] I have utilized all available immediate resources to obtain, update, or review of the patient's current medications COVID-19 COVID-19 status: Positive Result date/Date tested (Pos, Neg/Pending): 05/05/22 Scores Wells' Criteria for PE Clinical signs and symptoms of DVT: No PE is #1 Dx or equally likely: No Heart rate > 100: No Immobilization at least 3 days or surg in previous 4 weeks: Yes History of PE or DVT: No Hemoptysis: No Malignancy w/Treatment within 6 months or palliative: No Wells' PE Score total: 1.5 Quality VTE Deep Vein Thrombosis/Pulmonary Embolism Present on Admission: No MIPS - Admit I confirm the patient?s Advance Care Plan is present, Code status is documented, Surrogate decision maker is in patient?s record [If Yes, STOP here]: Yes MIPS - DC The patient has current or prior documentation of left ventricular ejection fraction (LVEF) less than 40%, or moderate or severely depressed left ventricular systolic function.: No
[2022-05-05] MEDS: POTASSIUM CHLORIDE IN WATER 10 MEQ/100 ML PIGGYBACK 100 MEQ IV ×4 (02:12→05:51)
[2022-05-05 05:48] LABS: Add Manual Diff / Slide Review NO; Basophils Absolute Auto 0 /uL (0-100); Basophils Percent Auto 0.1 % (0-2); Eosinophils Absolute Auto 200 /uL (0-450); Eosinophils Percent Auto 1.4 % (2-4); Hematocrit 38.7 % (36-46); Lymphocytes Absolute Auto 1500 /uL (1100-4500); Lymphocytes Percent Auto 12.5 % (25-40); Mean Corpuscular HGB Conc 33.5 % (30-36); Mean Corpuscular Hemoglobin 28.7 PG (26-34); Mean Corpuscular Volume 85.7 fL (80-100); Monocytes Absolute Auto 1200 /uL (0-900); Monocytes Percent Auto 9.9 % (3-14); Neutrophils Absolute Auto 9000 /uL (1500-7000); Neutrophils Percent Auto 76.1 % (50-75); Platelet Count 249 X10^3/uL (150-400); Red Blood Cell Count 4.52 X10^6/uL (4.0-5.2); Red Cell Distribution Width 14.5 % (11.6-14.8); White Blood Cell Count 11.9 X10^3/uL (4.5-11.0)
[2022-05-05 05:49] LABS: BUN Creatinine Ratio 19.8 (6-22); Blood Urea Nitrogen 23 mg/dL (7-17); Calcium 8.3 mg/dL (8.4-10.2); Carbon Dioxide 31 mmol/L (22-32); Chloride 100 mmol/L (98-107); Estimated Glomerular Filt Rate 47 mL/min (>60); Glucose 100 mg/dL (80-110); HEMOLYSIS < 15 (0-50); Magnesium 1.6 mg/dL (1.6-2.3); Potassium 3.5 mmol/L (3.4-5.1); Sodium 137 mmol/L (137-145)
[2022-05-05] MEDS: CALCITONIN,SALMON, NASAL SPRAY 1 SPRAYS NASAL (09:08)
[2022-05-05] MEDS: ASPIRIN 81 MG CHEW TAB PO (09:10)
[2022-05-05] MEDS: levETIRAcetam 250 MG TABLET 500 MG PO ×2 (09:11→20:45)
[2022-05-05] MEDS: PIPERACILLIN/TAZO 3.375 GM in SODIUM CHLORIDE 0.9% 100 ML IV ×2 (09:11→15:22)
[2022-05-05] MEDS: ENOXAPARIN 40 MG/0.4 ML SYRINGE SUBCUT (09:12)
[2022-05-05] MEDS: VERAPAMIL SR 120 MG TABLET 240 MG PO (09:12)
--- NOTE | 2022-05-05 11:18 | ST.IPCSEOM ---
Visit Care Team Role Provider Type Nasreen Najera DO Primary Care Provider Non-Staff Specialty: Internal Medicine Address: [address] [place], [address] Email: Majo Sainz MD Emergency Provider Physician Referring Provider Specialty: Emergency Medicine Address: [address] [place] [address], [id number] Email: ALIS Waller Admit Provider Physician Attending Provider Specialty: Internal Medicine Address: [address] [place] [address], [id number] Email: [email or web address] Past Medical History (Last Reviewed 05/05/22 @ 02:46 by ALIS Waller) Asthma (Medical) CVA (cerebral vascular accident) (Medical) Essential hypertension (Medical) Paroxysmal atrial fibrillation (Medical) 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 (CVA) (Medical) Vascular dementia (Medical) Speech-Language Pathology Swallow Evaluation REGISTERED DENTAL HYGIENIST Clinical Swallow Evaluation Start: 05/05/22 11:02 Freq: Status: Active Protocol: Document 05/05/22 11:03 LYNN (Rec: 05/05/22 11:18 MYAK [id number]) Clinical Swallow Evaluation Session Time Visit Start Time 10:40 Visit Stop Time 11:00 Total Visit Minutes 20 Setting Assessment Location Acute Care Visit Type Note Type Initial evaluation Patient Information Identification Type Name,Wristband History PER H&P: Rose Mary Bello is 82- year-old woman with a history of vascular dementia, prior strokes with subsequent [place] mal seizure, hypertension and atrial fibrillation on aspirin with COVID diagnosis on April 24.? She was admitted on April 25 and discharged on April 28 treated with dexamethasone, remdesivir and baricitinib.? She subsequently improved and was discharged home without oxygen.? She did well for the first 3 days but over the last 3 days has gotten increasingly weak to the point that she is unable to get out of bed. Daughter stated on Wednesday, she was assisting her returning from the bathroom to her bedroom when she collapsed but caught her. She did not see her mother's expression so she is not aware of the patient had a seizure or was just weak. She was and is incontinent of both urine and stool which is very unusual for her, she has not been interested in eating or drinking and her daughter, her primary caregiver, describes tbsp of liquid cough medicine only over the last 2 days.? Daughter states she has not been able to keep any of her seizure medications in.? Subjective Observations Pt in bed with her eyes closed . She was agreeable to have some water and medications. Objective Assessment Mental Status Responsive,Cooperative, Lethargic Comment Unable to perform formal OME. Pt was observed to oen her mouth to receive PO trials. Pt has some missing teeth on the upper arch. Unable to assess lower teeth. Food and Liquid Trials Position During Assessment Slightly reclined Liquids Trialed Thin Oral Phase Comments With limited trials, prt appeared to control the bolus and A-P transport. She was observed to chew crushed medications in apple sauce. Pharyngeal Impairment Within normal limits Pharyngeal Phase Comments Observation of pt's hyolaryngeal elevation for limited PO trials appeared to be adequate. No wet voicing or cough/choke observed. No overt s/sx aspiration noted. Fatigue/Endurance Severe fatigue Response/Comments Pt has been refusing all PO. She did, however agree to take some of her medication (~1 tsp) crushed in carrier and thin liquids. No overt s/sx aspiration. Silent aspiration remains a possibility; however instrumental assessment would be needed. Currently pt is not a candidate for MBSS. Chest x/ray noted bilateral clear lungs. Findings Swallowing Function Oropharyngeal phase dysphagia Severity of Swallow Impairment Moderately impaired Contributing Factors to Swallow Reduced alertness or attention Impairment ,Reduced oral strength/ coordination/sensation,Delayed swallow initiation Comments pt refusing PO intake at this time. Prognosis Fair Based on Bed bound,Age,Comorbidities Impact on Safety and Functioning Risk for inadequate nutrition/ hydration Recommendations Instrumental Assessment No Swallowing Treatment Yes Frequency MONITOR for safety 1-2 days as needed. Recommended Solids Dysphagia Mechanical Recommended Liquids Thin Safety Precautions/Swallowing Supervision needed for all Recommendations meals,Feed only when alert, Reduce distractions,Remain upright (90 degrees) during all oral intake,Needs verbal cues to use recommended strategies,Upright position at least 30 minutes after meals, Small bites and sips when eating,Slow rate; swallow between bites,No straw,1 to 1 feeding assistance,Family assistance/supervision,Strict oral care after intake,Check for pocketing Medication Recommendations Crushed in Carrier,One at a Time Discharge Recommendations assisted facility,[facility] combat[facility] crew[facility] care facility,Home with Home Health,Palliative care Education Patient/Caregiver Education Family/caregivers require further education/training Goals Long-term Goals pt will safely tolerate least restrictive diet without s/x aspiration to meet hydration/ nutrition needs.
--- NOTE | 2022-05-05 13:55 | PM.PN.1 ---
Subjective Subjective Date Patient Seen: 05/05/22 Time Patient Seen: 14:00 Interval history: Very fatigued and just wants to sleep. No other complaints. Exam Vital Signs (past 8 hours): - 05/05/22 08:34 05/05/22 12:00 Temperature 98.1 F 97.1 F L Pulse Rate 78 70 Respiratory Rate 22 22 Blood Pressure 124/72 120/71 Pulse Oximetry 95 98 Oxygen Flow Rate 0 0 Oxygen Delivery Method Room Air Oxygen Flow Rate 0 Narrative Exam Narrative: Appears to be in no acute distress. HEENT: Pupils equal react to light. Extraocular movements normal. Neck nodes are nontender. Neck is supple. Trachea is midline. Head is normocephalic. Cardiovascular: Heart sounds S1 and S2 with no extra sounds or murmurs. Peripheral pulses equal bilaterally. No pedal edema. Respiratory: Adequate air entry throughout the lung bustos no wheezes or crackles. Chest x-ray on admission showed no acute problems. Gastrointestinal: Abdomen is soft. Nontender. Bowel sounds normal. Skin: No lesions or rashes. Musculoskeletal: Able to move all extremities volitionally. No specific localized strength deficits. Neuro: Normal sensation of all extremities. Oriented to person and place Objective Labs Result Diagrams: 05/05/22 05:06 05/05/22 05:06 Labs: Laboratory Results - last 24 hr 05/04/22 05/04/22 05/04/22 22:15 22:15 22:15 WBC 10.0 RBC 4.63 Hgb 13.3 Hct 39.8 MCV 86.1 MCH 28.7 MCHC 33.4 RDW 14.3 Plt Count 256 Neut % (Auto) 70.3 Lymph % (Auto) 15.9 L [place] % (Auto) 11.5 Eos % (Auto) 2.1 Baso % (Auto) 0.2 Neut # (Auto) 7000 Lymph # (Auto) 1600 [place] # (Auto) 1100 H Eos # (Auto) 200 Baso # (Auto) 0 Sodium 137 Potassium 3.0 L Chloride 102 Carbon Dioxide 29 BUN 23 H Creatinine 0.99 Estimated GFR 57 L BUN/Creatinine Ratio 23.2 H Glucose 98 Calcium 8.3 L Magnesium 1.8 Total Bilirubin 0.9 AST 27 ALT 16 Alkaline Phosphatase 67 NT-Pro-B Natriuret Pep 3040 H Total Protein 5.8 L Albumin 3.0 L Globulin 2.8 Albumin/Globulin Ratio 1.1 Procalcitonin 0.08 Urine Color Urine Appearance Urine pH Ur Specific [place] Urine Protein Urine Glucose (UA) Urine Ketones Urine Occult Blood Urine Nitrate Urine Bilirubin Urine Urobilinogen Ur Leukocyte Esterase Urine RBC Urine WBC Ur Squamous Epith Cells Urine Bacteria Ur Culture Indicated? SARS-CoV-2 (PCR) 05/04/22 05/04/22 05/05/22 22:15 22:59 05:06 WBC 11.9 H RBC 4.52 Hgb 13.0 Hct 38.7 MCV 85.7 MCH 28.7 MCHC 33.5 RDW 14.5 Plt Count 249 Neut % (Auto) 76.1 H Lymph % (Auto) 12.5 L [place] % (Auto) 9.9 Eos % (Auto) 1.4 L Baso % (Auto) 0.1 Neut # (Auto) 9000 H Lymph # (Auto) 1500 [place] # (Auto) 1200 H Eos # (Auto) 200 Baso # (Auto) 0 Sodium Potassium Chloride Carbon Dioxide BUN Creatinine Estimated GFR BUN/Creatinine Ratio Glucose Calcium Magnesium Total Bilirubin AST ALT Alkaline Phosphatase NT-Pro-B Natriuret Pep Total Protein Albumin Globulin Albumin/Globulin Ratio Procalcitonin Urine Color Yellow Urine Appearance Cloudy Urine pH 6.5 Ur Specific [place] 1.020 Urine Protein 2+ H Urine Glucose (UA) Negative Urine Ketones 1+ H Urine Occult Blood 3+ H Urine Nitrate Positive H Urine Bilirubin Negative Urine Urobilinogen 1.0 Ur Leukocyte Esterase 3+ H Urine RBC 0-1/hpf Urine WBC >100/hpf H Ur Squamous Epith Cells 0-1 /hpf Urine Bacteria Many (>30) H Ur Culture Indicated? Specimen cultured SARS-CoV-2 (PCR) Positive H 05/05/22 05:06 WBC RBC Hgb Hct MCV MCH MCHC RDW Plt Count Neut % (Auto) Lymph % (Auto) [place] % (Auto) Eos % (Auto) Baso % (Auto) Neut # (Auto) Lymph # (Auto) [place] # (Auto) Eos # (Auto) Baso # (Auto) Sodium 137 Potassium 3.5 Chloride 100 Carbon Dioxide 31 BUN 23 H Creatinine 1.16 H Estimated GFR 47 L BUN/Creatinine Ratio 19.8 Glucose 100 Calcium 8.3 L Magnesium 1.6 Total Bilirubin AST ALT Alkaline Phosphatase NT-Pro-B Natriuret Pep Total Protein Albumin Globulin Albumin/Globulin Ratio Procalcitonin Urine Color Urine Appearance Urine pH Ur Specific [place] Urine Protein Urine Glucose (UA) Urine Ketones Urine Occult Blood Urine Nitrate Urine Bilirubin Urine Urobilinogen Ur Leukocyte Esterase Urine RBC Urine WBC Ur Squamous Epith Cells Urine Bacteria Ur Culture Indicated? SARS-CoV-2 (PCR) [facility] Medical History Asthma CVA (cerebral vascular accident) Essential hypertension Paroxysmal atrial fibrillation 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 (CVA) Vascular dementia Surgical History H/O: hysterectomy History of bilateral knee replacement History of ERCP Social History household members: children Smoking Status: Never smoker alcohol intake: never Assessment & Plan Assessment & Plan narrative: 1. Urinary tract infection, acute, was present on admission and resolved from prior admission on April 25 to . On Zosyn 4.5 g with loading dose followed by 3.75 g IV q.8 hours starting this morning. 2. Hypokalemia likely secondary to dehydration Her admitting potassium was 3.0 and was started on 40 mEq potassium replacement IV 1 time replacement. 3. Anorexia unknown if intentional or involuntary Patient takes dronabinol 2.5 mg p.o. daily and had previously been on twice daily dosing to help with appetite. 4. Acute on chronic heart failure unknown if with the a preserved or reduced ejection fraction Patient's proBNP was 3040 and patient was given IV Lasix 40 mg x 1 in the emergency department, will continue with 20 mg orally daily. 5. Seizure disorder, chronic She was given IV Keppra in the emergency department 500 mg, and on Keppra 500 mg p.o. dosing. 6. 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 7. Essential hypertension, chronic She is normotensive to hypotensive Verapamil 240 mg p.o. daily 8. COVID positive. Initial infection in mid April. Appears to be asymptomatic other than significant fatigue. Treated previously on admission in mid April with dexamethasone, remdesivir and baricitinib.? She subsequently improved and was discharged home without oxygen. Follow clinically. VTE Prophylaxis: Wells risk score 1.5 X Enoxaparin 40 mg subQ once daily X Bilateral SCDs Patient is admitted to the inpatient service due to the severity of disease, risks of further disease progression and this stay is expected to exceed 2 midnights. FEN: IV fluids: saline lock. Consultants? None Dispo: unknown at this time Code status: DNR/DNI as discussed with Kayla Mortensen, her daughter, surrogate and POA. Time Spent With Patient Critical Care time: I spent a total of [] minutes of critical care time on this patient's care today; this time is exclusive of procedural time. Quality VTE Deep Vein Thrombosis/Pulmonary Embolism Present on Admission: No
--- NOTE | 2022-05-05 15:04 | PC.NURSE ---
Addendum entered by Frantz Kebede R.N. 05/05/22 15:44: Rn tried to give magnesium pill, but patient spit it out. Original Note: RN mixed meds in applesauce and water to allow easier swallowing on pt. Pt refused meds after one bit of applesauce. Speech completed swallow test and watched pt take one bit of applesauce/meds. Rn has been letting pt sleep and rest.
[2022-05-05] MEDS: MAGNESIUM CHLORIDE 64 MG TABLET 128 MG PO (15:22)
[2022-05-06] VITALS: BP 133/65; PULSE 63; RESP 14; TEMP 36.6; O2SAT 97
[2022-05-06] MEDS: PIPERACILLIN/TAZO 3.375 GM in SODIUM CHLORIDE 0.9% 100 ML IV ×2 (00:12→08:15)
[2022-05-06 04:00] VITALS: BP 138/85; PULSE 68; RESP 15; TEMP 36.5; O2SAT 94
[2022-05-06 05:16] LABS: Add Manual Diff / Slide Review NO; Basophils Absolute Auto 100 /uL (0-100); Basophils Percent Auto 0.8 % (0-2); Eosinophils Absolute Auto 200 /uL (0-450); Eosinophils Percent Auto 2.4 % (2-4); Hematocrit 35.8 % (36-46); Hemoglobin 12.1 g/dL (12.0-16.0); Lymphocytes Absolute Auto 1600 /uL (1100-4500); Lymphocytes Percent Auto 18.3 % (25-40); Mean Corpuscular HGB Conc 33.8 % (30-36); Mean Corpuscular Hemoglobin 28.4 PG (26-34); Mean Corpuscular Volume 84.2 fL (80-100); Monocytes Absolute Auto 900 /uL (0-900); Monocytes Percent Auto 9.9 % (3-14); Neutrophils Absolute Auto 6000 /uL (1500-7000); Neutrophils Percent Auto 68.6 % (50-75); Platelet Count 240 X10^3/uL (150-400); Red Blood Cell Count 4.25 X10^6/uL (4.0-5.2); Red Cell Distribution Width 14.6 % (11.6-14.8); White Blood Cell Count 8.8 X10^3/uL (4.5-11.0)
[2022-05-06 05:24] LABS: Alanine Aminotransferase 13 IU/L (<35); Albumin 2.8 g/dL (3.5-5.0); Alkaline Phosphatase 63 U/L (38-126); Aspartate Aminotransferase 23 IU/L (14-36); BUN Creatinine Ratio 24.5 (6-22); Bilirubin Total 0.9 mg/dL (0.2-1.3); Blood Urea Nitrogen 25 mg/dL (7-17); Calcium 8.2 mg/dL (8.4-10.2); Carbon Dioxide 29 mmol/L (22-32); Chloride 104 mmol/L (98-107); Estimated Glomerular Filt Rate 55 mL/min (>60); Globulin 2.8 g/dL (1.7-4.1); Glucose 87 mg/dL (80-110); HEMOLYSIS < 15 (0-50); Sodium 138 mmol/L (137-145); Total Protein 5.6 g/dL (6.3-8.2)
[2022-05-06 05:29] LABS: Magnesium 1.7 mg/dL (1.6-2.3)
[2022-05-06] MEDS: ENOXAPARIN 40 MG/0.4 ML SYRINGE SUBCUT (09:29)
[2022-05-06] MEDS: VERAPAMIL SR 120 MG TABLET 240 MG PO (09:30)
[2022-05-06] MEDS: levETIRAcetam 250 MG TABLET 500 MG PO ×2 (09:30→22:06)
[2022-05-06] MEDS: CALCITONIN,SALMON, NASAL SPRAY 1 SPRAYS NASAL (09:31)
[2022-05-06] MEDS: ASPIRIN 81 MG CHEW TAB PO (09:31)
[2022-05-06] MEDS: FUROSEMIDE 20 MG TABLET PO (09:31)
[2022-05-06] MEDS: POTASSIUM CHLORIDE 20 MEQ TAB 40 MEQ PO (11:30)
--- NOTE | 2022-05-06 11:54 | SLP.IPNOTE ---
Observed pt take medications, crushed in applesauce, with NSG. Pt was reclined in bed when NSG and ORDER WORKER arrived and was repositioned to upright position for medications. Pt's morning meal was on the tray at bedside and pt had not eaten any breakfast. Per NSG, she refused breakfast this morning. Pt took pills with no overt signs or symptoms of aspiration, no anterior loss, and no reported difficulty. She appears to tolerate dysphagia mechanical diet well and behaviors are consistent with previous admission to hospital. Pt is not a good candidate for swallow safety strategies or cognitive therapy due to current cognitive impairment/functioning. Discharging from speech therapy at this time and will re-evaluate if pt demonstrates significant change in swallowing or cognitive status.
[2022-05-06 12:00] VITALS: BP 100/60; PULSE 73; RESP 18; TEMP 36.1; O2SAT 95
--- NOTE | 2022-05-06 12:59 | PM.PN.1 ---
Subjective Subjective Date Patient Seen: 05/06/22 Time Patient Seen: 12:50 Interval history: Patient exhausted. Just wants to sleep all the time. Only complaint is soreness in her mouth, throughout her entire mouth including tongue and back of throat. Does not feel like eating and the throat and can be part of it. Sleeping well at night. Exam Vital Signs (past 8 hours): - 05/06/22 12:00 Temperature 97.0 F L Pulse Rate 73 Respiratory Rate 18 Blood Pressure 100/60 Pulse Oximetry 95 Oxygen Flow Rate 0 Oxygen Delivery Method Room Air Oxygen Flow Rate 0 Narrative Exam Narrative: Sleeping but arousable. Appears to be in no acute medical distress. HEENT: Pupils equal and reactive to light. Head is normocephalic. Trachea is midline. Neck nodes are nontender and nonpalpable. Surrounding look of tongue and sides the mouth for thrush. Cardiovascular: Heart sounds S1 and S2 with no extra sounds or murmurs. Respiratory: Air entry throughout the lung bustos no wheezes or crackles. Gastrointestinal: Abdomen is soft. Nontender. Bowel sounds normal Musculoskeletal: Able to move all extremities volitionally. Very cachectic. Skin: No lesions or rashes. Neuro: Normal sensation of all extremities. Objective Labs Result Diagrams: 05/06/22 04:44 05/06/22 04:44 Labs: Laboratory Results - last 24 hr 05/06/22 05/06/22 05/06/22 04:44 04:44 04:44 WBC 8.8 RBC 4.25 Hgb 12.1 Hct 35.8 L MCV 84.2 MCH 28.4 MCHC 33.8 RDW 14.6 Plt Count 240 Neut % (Auto) 68.6 Lymph % (Auto) 18.3 L [place] % (Auto) 9.9 Eos % (Auto) 2.4 Baso % (Auto) 0.8 Neut # (Auto) 6000 Lymph # (Auto) 1600 [place] # (Auto) 900 Eos # (Auto) 200 Baso # (Auto) 100 Sodium 138 Potassium 3.0 L Chloride 104 Carbon Dioxide 29 BUN 25 H Creatinine 1.02 Estimated GFR 55 L BUN/Creatinine Ratio 24.5 H Glucose 87 Calcium 8.2 L Magnesium 1.7 Total Bilirubin 0.9 AST 23 ALT 13 Alkaline Phosphatase 63 Total Protein 5.6 L Albumin 2.8 L Globulin 2.8 Albumin/Globulin Ratio 1.0 PFSH Medical History Asthma CVA (cerebral vascular accident) Essential hypertension Paroxysmal atrial fibrillation 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 (CVA) Vascular dementia Surgical History H/O: hysterectomy History of bilateral knee replacement History of ERCP Social History household members: children Smoking Status: Never smoker alcohol intake: never Assessment & Plan Assessment & Plan narrative: 1. Urinary tract infection, acute, was present on admission and resolved from prior admission on April 25 to . Urine positive culture for Proteus mirabilis. Transition to oral Cipro. 2. Hypokalemia likely secondary to dehydration Her admitting potassium was 3.0 and was started on 40 mEq potassium replacement IV 1 time replacement. Remains low at 3.0, will supplement orally on a daily basis. 3. Anorexia unknown if intentional or involuntary Patient takes dronabinol 2.5 mg p.o. daily and had previously been on twice daily dosing to help with appetite. 4. Acute on chronic heart failure unknown if with the a preserved or reduced ejection fraction Patient's proBNP was 3040 and patient was given IV Lasix 40 mg x 1 in the emergency department, will continue with 20 mg orally daily. 5. Seizure disorder, chronic She was given IV Keppra in the emergency department 500 mg, and on? Keppra 500 mg p.o. dosing. 6. 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 7. Essential hypertension, chronic She is normotensive to hypotensive. Currently stable. Verapamil 240 mg p.o. daily 8. COVID positive.? Initial infection in mid April.? Appears to be asymptomatic other than significant fatigue.? Treated previously on admission in mid April with dexamethasone, remdesivir and baricitinib.? She subsequently improved and was discharged home without oxygen.? Follow clinically. VTE Prophylaxis: Wells risk score 1.5 X Enoxaparin 40 mg subQ once daily X Bilateral SCDs Patient is admitted to the inpatient service due to the severity of disease, risks of further disease progression and this stay is expected to exceed 2 midnights. FEN: IV fluids: saline lock. Consultants? None Dispo: unknown at this time Time Spent With Patient Critical Care time: I spent a total of [] minutes of critical care time on this patient's care today; this time is exclusive of procedural time. Quality VTE Deep Vein Thrombosis/Pulmonary Embolism Present on Admission: No
--- NOTE | 2022-05-06 15:35 | DIET.CONS2 ---
Dietary Inpatient Consultation Note Admission Date: 05/04/2022 23:49 82y F admitted for weakness, confusion, covid pna referred to nutrition for hypokalemia. Per hospitalist, pt refusing most POs, upon inspection, pt appears to have thrush in mouth and on tongue. Kitchen to send yogurt tid on meal trays to soothe thrush as she is treated as well as sliced bananas or mashed potatoes as easy to eat, diet appropriate sources of potassium. Diet: 05/05/22 Breakfast Heart Healthy Diet Diet Modifications: May Advance Diet as Tolerated: Yes Safety Tray needed?: No Sodium Level: No Added Salt 05/05/22 Lunch Dysphagia Diet Diet Modifications: Liquid consistency: Normal/Thin Food texture: Dysphagia Mechanical Soft Electronically Signed by: Sarika Desai 05/06/22 15:35 Clinical Dietitian [address] [id number]
--- NOTE | 2022-05-06 15:44 | CM.DANOTE ---
Patient is an 82 yo female who was admitted on 05/04/22 for Weakness. Pt has [facility] and [facility] and her PCP is Nasreen Najera. EMR was reviewed. Per MD, pt with hx of vascular dementia from prior CVA and admitted for UTI. Pt COVID+ from mid April and still testing positive but asymptomatic. Pt not yet medically stable to discharge. ARLENE spoke briefly with pt's Dtr/DPOA Kayla who confirms Patient lives her and Kayla is a retired ER nurse and son in law in [place]. Daughter states she and her spouse provide all care for patient including some of her personal ADL assist as needed and do all home management and cooking, transportation. Pt was recently admitted in early Apr for COVID and was able to d/c home with new [facility] referral. SW called [facility] and confirmed they have referral but had not started services yet and therefore need new F2F and orders. SW faxed updated clinicals to review. Plan: SW to follow closely to confirm safe plan of home with [facility] and family assist and any further identified discharge planning needs. STONEY Mondragon
[2022-05-06 16:00] VITALS: BP 116/62; PULSE 66; RESP 18; O2SAT 96
[2022-05-06] MEDS: NYSTATIN SUSP 500,000 UNIT/5 ML UDC 500000 UNIT PO ×2 (16:02→22:06)
[2022-05-06 22:00] VITALS: BP 126/68; PULSE 63; RESP 16; TEMP 36.7; O2SAT 96
[2022-05-06] MEDS: CIPROFLOXACIN 250 MG TABLET PO (22:06)
[2022-05-07 02:00] VITALS: BP 134/72; PULSE 68; RESP 16; TEMP 36.6; O2SAT 96
[2022-05-07 05:59] LABS: BUN Creatinine Ratio 33.3 (6-22); Blood Urea Nitrogen 32 mg/dL (7-17); Calcium 8.5 mg/dL (8.4-10.2); Carbon Dioxide 29 mmol/L (22-32); Chloride 104 mmol/L (98-107); Estimated Glomerular Filt Rate 59 mL/min (>60); Glucose 78 mg/dL (80-110); HEMOLYSIS < 15 (0-50); Magnesium 1.9 mg/dL (1.6-2.3); Potassium 3.3 mmol/L (3.4-5.1); Sodium 138 mmol/L (137-145)
[2022-05-07 06:00] VITALS: BP 120/66; PULSE 67; RESP 14; TEMP 36.2; O2SAT 96
[2022-05-07] MEDS: CIPROFLOXACIN 250 MG TABLET PO ×2 (06:56→20:17)
[2022-05-07 09:40] VITALS: BP 127/67; PULSE 65; RESP 16; TEMP 36.2; O2SAT 97
[2022-05-07] MEDS: ENOXAPARIN 40 MG/0.4 ML SYRINGE SUBCUT (09:54)
[2022-05-07] MEDS: levETIRAcetam 250 MG TABLET 500 MG PO ×2 (09:55→20:17)
[2022-05-07] MEDS: NYSTATIN SUSP 500,000 UNIT/5 ML UDC 500000 UNIT PO ×4 (09:55→20:16)
[2022-05-07] MEDS: ASPIRIN 81 MG CHEW TAB PO (09:55)
[2022-05-07] MEDS: FUROSEMIDE 20 MG TABLET PO (09:55)
[2022-05-07] MEDS: POTASSIUM CHLORIDE 20 MEQ TAB 40 MEQ PO (09:55)
[2022-05-07] MEDS: CALCITONIN,SALMON, NASAL SPRAY 1 SPRAYS NASAL (09:56)
[2022-05-07] MEDS: VERAPAMIL SR 120 MG TABLET 240 MG PO (09:56)
[2022-05-07 14:37] VITALS: BP 103/55; PULSE 80; RESP 16; TEMP 36.2; O2SAT 98
--- NOTE | 2022-05-07 16:07 | CM.DPNOTE ---
Discharge Planning Note: Patient is Covid+. Lives with dtr Kayla, retired nurse. Referral sent to [facility] , they can take patient withing 24 to 48 hours of discharge at this point. Pt has dementia, spoke with day nurse, patient has been sleepy, oriented to self, non-ambulatory. Plan: Follow closely for needs. Give [facility] update tomorrow afternoon. Speak with daughter. Mayda Fitzgerald RN/DCP
--- NOTE | 2022-05-07 16:11 | P.PN_ITS ---
Subjective Subjective Date Patient Seen: 05/07/22 Time Patient Seen: 16:00 Interval history: Patient feels so much tender today. Is in a good mood. Has been eating more. More talkative and a smile on her face. Throat does not feel as sore and she feels comfortable eating. Exam Vital Signs (past 8 hours): - 05/07/22 09:40 05/07/22 14:37 Temperature 97.1 F L 97.2 F L Pulse Rate 65 80 Respiratory Rate 16 16 Blood Pressure 127/67 103/55 L Pulse Oximetry 97 98 Oxygen Flow Rate 0 0 Oxygen Delivery Method Room Air Oxygen Flow Rate 0 Narrative Exam Narrative: Smiling lying in bed. Appears to be in no acute medical distress. HEENT:? Pupils equal and reactive to light.? Head is normocephalic.? Trachea is midline.? Neck nodes are nontender and nonpalpable.? Surrounding look of tongue and sides the mouth for thrush. She appears clearing. Cardiovascular:? Heart sounds S1 and S2 with no extra sounds or murmurs. Respiratory:? Air entry throughout the lung bustos no wheezes or crackles. Gastrointestinal:? Abdomen is soft.? Nontender.? Bowel sounds normal Musculoskeletal:? Able to move all extremities volitionally.? Very cachectic. Skin:? No lesions or rashes. Neuro:? Normal sensation of all extremities. Objective Labs Result Diagrams: 05/06/22 04:44 05/07/22 05:30 Labs: Laboratory Results - last 24 hr 05/07/22 05:30 Sodium 138 Potassium 3.3 L Chloride 104 Carbon Dioxide 29 BUN 32 H Creatinine 0.96 Estimated GFR 59 L BUN/Creatinine Ratio 33.3 H Glucose 78 L Calcium 8.5 Magnesium 1.9 PFSH Medical History Asthma CVA (cerebral vascular accident) Essential hypertension Paroxysmal atrial fibrillation 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 (CVA) Vascular dementia Surgical History H/O: hysterectomy History of bilateral knee replacement History of ERCP Social History household members: children Smoking Status: Never smoker alcohol intake: never Assessment & Plan Assessment & Plan narrative: 1. Urinary tract infection, acute, was present on admission and resolved from prior admission on April 25 to . Urine positive culture for Proteus mirabilis.? Transitioned to oral Cipro. 2. Hypokalemia likely secondary to dehydration Her admitting potassium was 3.0 and was started on 40 mEq potassium replacement IV 1 time replacement.? Remains low at 3.3, will supplement orally on a daily basis. Follow labs. 3. Anorexia unknown if intentional or involuntary Patient takes dronabinol 2.5 mg p.o. daily and had previously been on twice daily dosing to help with appetite. POTTERY DECORATION DESIGNER has assessed swallowing and patient is good with dysphagia mechanical diet. 4. Acute on chronic heart failure unknown if with the a preserved or reduced ejection fraction Patient's proBNP was 3040 and patient was given IV Lasix 40 mg x 1 in the emergency department, will continue with 20 mg orally daily. 5. Seizure disorder, chronic She was given IV Keppra in the emergency department 500 mg, and on? Keppra 500 mg p.o. dosing. 6. 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 7. Essential hypertension, chronic She is normotensive to hypotensive.? Currently stable. Verapamil 240 mg p.o. daily 8. COVID positive.? Initial infection in mid April.? Appears to be asymptomatic other than significant fatigue.? Treated previously on admission in mid April with dexamethasone, remdesivir and baricitinib.? She subsequently improved and was discharged home without oxygen.? Follow clinically. 9. Concern for thrush. Being treated with nystatin swish and swallow. Patient reports that her mouth feels so much better and she is eating more. VTE Prophylaxis: Wells risk score 1.5 X Enoxaparin 40 mg subQ once daily X Bilateral SCDs Patient is admitted to the inpatient service due to the severity of disease, risks of further disease progression and this stay is expected to exceed 2 midnights. FEN: IV fluids: saline lock. Consultants? None Dispo: unknown at this time Time Spent With Patient Critical Care time: I spent a total of [] minutes of critical care time on this patient's care today; this time is exclusive of procedural time. Quality VTE Deep Vein Thrombosis/Pulmonary Embolism Present on Admission: No
[2022-05-07 20:00] VITALS: BP 122/58; PULSE 64; RESP 16; TEMP 36.2; O2SAT 96
[2022-05-08] VITALS: BP 122/74; PULSE 66; RESP 14; TEMP 36.2; O2SAT 97
[2022-05-08 04:00] VITALS: BP 137/52; PULSE 68; RESP 18; TEMP 36.8; O2SAT 97
[2022-05-08 05:24] LABS: BUN Creatinine Ratio 32.8 (6-22); Blood Urea Nitrogen 38 mg/dL (7-17); Calcium 9.3 mg/dL (8.4-10.2); Carbon Dioxide 31 mmol/L (22-32); Chloride 104 mmol/L (98-107); Estimated Glomerular Filt Rate 47 mL/min (>60); Glucose 105 mg/dL (80-110); HEMOLYSIS < 15 (0-50); Potassium 3.7 mmol/L (3.4-5.1); Sodium 140 mmol/L (137-145)
[2022-05-08] MEDS: CIPROFLOXACIN 250 MG TABLET PO ×2 (06:03→21:12)
[2022-05-08 08:00] VITALS: BP 115/65; PULSE 76; RESP 16; TEMP 36.6; O2SAT 98
[2022-05-08] MEDS: ASPIRIN 81 MG CHEW TAB PO (09:33)
[2022-05-08] MEDS: ENOXAPARIN 40 MG/0.4 ML SYRINGE SUBCUT (09:33)
[2022-05-08] MEDS: VERAPAMIL SR 120 MG TABLET 240 MG PO (09:33)
[2022-05-08] MEDS: POTASSIUM CHLORIDE 20 MEQ TAB 40 MEQ PO (09:34)
[2022-05-08] MEDS: levETIRAcetam 250 MG TABLET 500 MG PO ×2 (09:34→21:11)
[2022-05-08] MEDS: FUROSEMIDE 20 MG TABLET PO (09:34)
[2022-05-08] MEDS: NYSTATIN SUSP 500,000 UNIT/5 ML UDC 500000 UNIT PO ×4 (09:35→21:11)
[2022-05-08] MEDS: CALCITONIN,SALMON, NASAL SPRAY 1 SPRAYS NASAL (09:35)
--- NOTE | 2022-05-08 12:17 | PT.IIE ---
Current Diagnoses Urinary tract infection, site not specified (05/04/22) Surgical History (Last Reviewed 05/05/22 @ 02:46 by ALIS Waller) H/O: hysterectomy History of bilateral knee replacement History of ERCP Medical History (Last Reviewed 05/05/22 @ 02:46 by ALIS Waller) Asthma CVA (cerebral vascular accident) Essential hypertension Paroxysmal atrial fibrillation 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 (CVA) Vascular dementia Physical Therapy Inpatient Evaluation/Re-Eval M1 PT/OT-IP Prior Functional Status Start: 05/08/22 11:05 Freq: NEEDED Status: Active Protocol: Document 05/08/22 12:17 AW (Rec: 05/08/22 12:53 AW [email or web address]) Medical Review Prior Functional Status Medical History Reviewed Yes Communication Pt has vascular dementia resulting from a prior CVA. She is a poor historian and is oriented only to self. Mobility and Gait Per phone conversation with pt 's daughter: Pt uses a 4WW in the home and a FWW to get from front door to car. She will use a wheelchair when out for longer distances. Activities of Daily Living and IADL's Pt's daughter provides assist with dressing and bathing. Pt is typically able to get herself up from a chair to get to the toilet and back. Daughter assists with all IADL 's. Prior Functional Level (Other details) Pt was initially COVID (+) mid -April and was hospitalized. On discharge, [facility] was planned but did not initiate services before pt returned to the ED. Social History Household Members children Living Arrangements House Number of Floors (Floors) Two Floors Number of Stairs To Enter/Railing? Unknown stairs at entrance. Pt uses a stair lift from the entry landing to the upper part of the house. Home Environment Standard Height Toilet,Walk in Shower Home Equipment Front Wheel Walker,Four Wheel Walker,Shower Seat with Backrest,Hand Held Shower,Grab Bars Near Toilet,Grab Bars In Shower Additional Social History Comment Pt lives in [place] with her daughter, Kayla, who provides 24/7 assist. M2 PT-IP Current Condition Start: 05/08/22 11:05 Freq: NEEDED Status: Active Protocol: Document 05/08/22 12:17 AW (Rec: 05/08/22 12:53 AW [email or web address]) Physical Therapy Current Condition Current Condition Evaluation Date 05/08/22 Treatment Diagnosis UTI, weakness, COVID (+); difficulty in walking Onset Date mid-April M3 PT-IP Subjective Start: 05/08/22 11:05 Freq: NEEDED Status: Active Protocol: Document 05/08/22 12:17 AW (Rec: 05/08/22 12:53 AW [email or web address]) Subjective Physical Therapy Visit Type Type Initial Evaluation Visit Start Time 11:50 Visit Stop Time 12:17 Total Visit Minutes 27 Physical Therapy Visit Comments Patient Comments I'm broken and I don't know if I can get up. M4 PT-IP Mobility and Gait Start: 05/08/22 11:05 Freq: NEEDED Status: Active Protocol: Document 05/08/22 12:17 AW (Rec: 05/08/22 12:53 AW [email or web address]) PT-Bed Mobility Assessment Supine to Sit Supine to Sit Minimal Assistance,1 Person Assistance,Bedrails Sit to Supine Sit to Supine Minimal Assistance,1 Person Assistance PT-Transfer Assessment Sit to and From Stand Sit to and from Stand Minimal Assistance,1 Person Assistance,2 Person Assistance Equipment Transfer Assistive Device None,Gait Belt Orthotic/Prosthetic Devices or Brace: No Transfers Transfer Destination Bed,Chair Transfer Technique Stand Pivot Transfer Ability Level of Assist Maximum Assistance,1 Person Assistance Comments Mobility Comments Pt was lying in bed as PT arrived. BP 119/74 HR 93 SpO2 97% on room air. Pt agreed to sit up, moving her legs toward left side of the bed. She needed min A to right her trunk and min A to scoot forward. PT found no walker in the room and pt insisted she usually does not use a walker. Min A to stand but max A for stand pivot transfer to the chair. Pt was not comfortable on the chair and requested return to bed. Max A for stand pivot transfer back to bed. Min A to elevate LE's to the bed. Pt was repositioned on the bed with call light and tray table in reach. All VS were stable. Gait Assessment Comments Gait Comments Not safe to progress to gait this date. Plan to attempt gait with FWW next session. PT-Balance Assessment Sitting Balance and Reactions Static Sitting Balance Ability Fair Dynamic Sitting Balance Ability Fair Standing Balance and Reactions Static Standing Balance Ability Poor Dynamic Standing Balance Ability Poor Device Used no AD M5 PT-IP Objective Assessments Start: 05/08/22 11:05 Freq: NEEDED Status: Active Protocol: Document 05/08/22 12:17 AW (Rec: 05/08/22 12:53 AW [email or web address]) Orientation Orientation/Cognition Level of Alertness Confusional State Orientation Name Safety Awareness Decreased Safety Awareness Memory Description Short Term Impaired Gross Range of Motion Lower Extremity ROM Assessment Within Functional Limits Strength Lower Extremity Strength Assessment Bilaterally Impaired Hip 3+/5 Knee 4-/5 Sensation Assessment Comments Sensation Comments Unable to formally assess due to cognition. M6 PT-IP Treatment Start: 05/08/22 11:05 Freq: NEEDED Status: Active Protocol: Document 05/08/22 12:17 AW (Rec: 05/08/22 12:53 AW [email or web address]) Physical Therapy Treatment Education Education Provided Safety M7 PT-IP Assessment and Plan Start: 05/08/22 11:05 Freq: NEEDED Status: Active Protocol: Document 05/08/22 12:17 AW (Rec: 05/08/22 12:53 AW [email or web address]) PT Summary Assessment and Plan Potential Rehabilitation Potential Fair Status of Condition at Evaluation Evolving Summary Impairments Strength,Balance,Sensation, Cognition,Bed Mobility, Transfers,Gait,Activity Tolerance Assessment Summary Rose Mary is an 82 yo woman re- admitted with UTI and COVID (+ ). She was supposed to have [facility] at discharge but they were unable to initiate service before pt re-admitted. Per conversation with pt's daughter who is her 24/7 caregiver, pt ambulates household distances with 4WW, has a stair lift for stairs, and needs assist with dressing , bathing, and all IADL's at baseline. On assessment, no FWW was found in the room and this PT attempted stand pivot transfer with pt who required max A x 1. Pt's daughter states pt can be stubborn and needs a great deal of encouragement to do more for herself. While pt does have demonstrable weakness, she may not be a good candidate for SNF rehab due to her dementia. She is likely to benefit from home health services at discharge. Will continue to assess. If daughter is able to manage pt's mobility needs at home, she will be safe to discharge with 24/7 assist and HH PT once medically stable. Goals Bed Mobility Goal Standby Assistance Transfer Goal Standby Assistance,Front Wheeled Walker Gait Goal Standby Assistance,Front Wheel Walker Gait Distance 75 Other Goals - improve transfers and gait to SBA with 4WW Days to Meet Goals 10 Frequency of Treatment Frequency Of Treatment Once a Day Treatment Plan Physical Therapy Treatment Plan Bed Mobility Training,Transfer Training,Gait Training, Therapeutic Exercise,Balance Retraining,Discharge Planning, Hot or Cold Pack,Neuromuscular Re-ed Other Recommendations and Next Treatment take FWW (none found in room Focus today); assess mobility with walker Precautions Other Precautions falls risk; COVID (+) Recommendations To Nursing Amount of Assist Needed 2 Person Assist Discharge Recommendations PT Discharge Recommendations Home with 05/04 Assist Available,Home Health Transportation Needs at Discharge Private Vehicle
[2022-05-08 12:30] VITALS: BP 120/74; PULSE 79; RESP 16; TEMP 36.5; O2SAT 98
--- NOTE | 2022-05-08 13:33 | PM.PN.1 ---
Subjective Subjective Date Patient Seen: 05/08/22 Time Patient Seen: 13:30 Interval history: Patient feels that she is slowly improving. Still very weak. Not back to her usual mobility. Needing more physical therapy after assessment today. Exam Vital Signs (past 8 hours): - 05/08/22 08:00 05/08/22 08:00 05/08/22 12:30 Temperature 97.8 F 97.7 F Pulse Rate 76 79 Respiratory Rate 16 16 Blood Pressure 115/65 120/74 Pulse Oximetry 98 98 Oxygen Delivery Method Room Air Oxygen Flow Rate 0 0 Oxygen Delivery Method Room Air Oxygen Flow Rate 0 Narrative Exam Narrative: Smiling lying in bed.? Appears to be in no acute medical distress. HEENT:? Pupils equal and reactive to light.? Head is normocephalic.? Trachea is midline.? Neck nodes are nontender and nonpalpable.? Thrush appears to be clearing. Cardiovascular:? Heart sounds S1 and S2 with no extra sounds or murmurs. Respiratory:? Air entry throughout the lung bustos no wheezes or crackles. Gastrointestinal:? Abdomen is soft.? Nontender.? Bowel sounds normal Musculoskeletal:? Able to move all extremities volitionally.? Very cachectic. Skin:? No lesions or rashes. Neuro:? Normal sensation of all extremities. Objective Labs Result Diagrams: 05/06/22 04:44 05/08/22 05:00 Labs: Laboratory Results - last 24 hr 05/08/22 05:00 Sodium 140 Potassium 3.7 Chloride 104 Carbon Dioxide 31 BUN 38 H Creatinine 1.16 H Estimated GFR 47 L BUN/Creatinine Ratio 32.8 H Glucose 105 Calcium 9.3 PFSH Medical History Asthma CVA (cerebral vascular accident) Essential hypertension Paroxysmal atrial fibrillation 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 (CVA) Vascular dementia Surgical History H/O: hysterectomy History of bilateral knee replacement History of ERCP Social History household members: children Smoking Status: Never smoker alcohol intake: never Assessment & Plan Assessment & Plan narrative: 1. Urinary tract infection, acute, was present on admission and resolved from prior admission on April 25 to . Urine positive culture for Proteus mirabilis.? Transitioned to oral Cipro. Dose completing on May 11. 2. Hypokalemia likely secondary to dehydration Her admitting potassium was 3.0 and was started on 40 mEq potassium replacement IV 1 time replacement.?At 3.7 with oral supplementation today. Continue supplementation. 3. Anorexia unknown if intentional or involuntary Patient takes dronabinol 2.5 mg p.o. daily and had previously been on twice daily dosing to help with appetite.? NEWSPAPER OR PERIODICAL EDITOR has assessed swallowing and patient is good with dysphagia mechanical diet. 4. Acute on chronic heart failure unknown if with the a preserved or reduced ejection fraction Patient's proBNP was 3040 and patient was given IV Lasix 40 mg x 1 in the emergency department, will continue with 20 mg orally daily. Will order echo to establish type of heart failure recurrence ejection fraction. 5. Seizure disorder, chronic She was given IV Keppra in the emergency department 500 mg, and on? Keppra 500 mg p.o. dosing. 6. 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 7. Essential hypertension, chronic She is normotensive to hypotensive.? Currently stable. Verapamil 240 mg p.o. daily 8. COVID positive.? Initial infection in mid April.? Appears to be asymptomatic other than significant fatigue.? Treated previously on admission in mid April with dexamethasone, remdesivir and baricitinib.? She subsequently improved and was discharged home without oxygen.? Follow clinically. 9. Concern for thrush.? Being treated with nystatin swish and swallow.? Patient reports that her mouth feels so much better and she is eating more.? 10. Decreased mobility. Physical therapy assessed the patient today and will continue with treatment. VTE Prophylaxis: Wells risk score 1.5 X Enoxaparin 40 mg subQ once daily X Bilateral SCDs Patient is admitted to the inpatient service due to the severity of disease, risks of further disease progression. FEN: IV fluids: saline lock. Consultants? None Dispo: unknown at this time Time Spent With Patient Critical Care time: I spent a total of [] minutes of critical care time on this patient's care today; this time is exclusive of procedural time. Quality VTE Deep Vein Thrombosis/Pulmonary Embolism Present on Admission: No
--- NOTE | 2022-05-08 13:47 | DI.ECHO.S_ITS ---
[facility] +---------+ : : [address] : : : : [id number] : : : : Phone: [phone]---------+ Echocardiogram Report + + :Name: BARTOLO LUGO Study Date: 05/08/2022 Height: 62 in : :[facility] ReadingLocation: Weight: 131 lb : : Gender: Female BSA: 1.6 m2 : :: 1940 Age: 82 yrs BP: 120/74 mmHg: :Reason For Study: Congestive Heart Failure : :Ordering Physician: : :Nae Ham Performed By: Eliceo Burns : :Referring: Nae Ham : + + Interpretation Summary The ejection fraction is estimated to be 55-60%. There is moderate mitral annular calcification. There is trace mitral regurgitation. There is mild tricuspid regurgitation. Right ventricular systolic pressure is estimated to be 21 mmHg plus the clinically estimated CVP which cannot be estimated on this exam. Procedure: A two-dimensional transthoracic echocardiogram with color flow and Doppler was performed. The study quality was technically difficult. There is no prior echocardiogram noted for this patient. Left Ventricle: The left ventricle is normal in size. There is mild concentric left ventricular hypertrophy. Left ventricular systolic function is normal. The ejection fraction is estimated to be 55-60%. There are no focal wall motion abnormalities. Diastolic function could not be accurately assessed due to confounding valvular disease. Right Ventricle: The right ventricle is normal in size and function. Atria: The left atrium grossly appears normal in size. Right atrial size is normal. The interatrial septum grossly appears intact with no obvious evidence for an atrial septal defect. Mitral Valve: There is moderate mitral annular calcification. There is trace mitral regurgitation. Aortic Valve: The aortic valve is mildly calcified. The aortic valve is trileaflet. The aortic valve opens well. There is trace aortic regurgitation. Tricuspid Valve: The tricuspid valve is normal in structure and function. There is mild tricuspid regurgitation. Right ventricular systolic pressure is estimated to be 21 mmHg plus the clinically estimated CVP which cannot be estimated on this exam. Pulmonic Valve: The pulmonic valve is not well seen, but is grossly normal. There is no pulmonic valvular regurgitation. Great Vessels: The aortic root is normal size. The ascending aorta could not be visualized. The inferior vena cava was not visualized. Pericardium/ Pleura There is no pericardial effusion. There is no pleural effusion. MMode/2D Measurements & Calculations LVIDd: 3.8 cm LVOT diam: 1.8 cm LVIDs: 2.5 cm Ao root diam: 3.3 cm FS: 33.5 % IVSd: 1.2 cm LVPWd: 1.1 cm LV leone. diameter/BSA (cm/m^2): 2.4 LV sys. diameter/BSA (cm/m^2): 1.6 LA length (vol): 3.8 cm RA area: 18.0 cm2 TAPSE: 2.0 cm LA A2C-A/L_phl: 12.0 cm2 LA A4C-A/L_phl: 17.2 cm2 Doppler Measurements & Calculations Ao V2 max: 127.2 cm/sec LVOT Max Edgar: 78.8 cm/sec Ao V2 mean: 91.4 cm/sec LV V1 max P.5 mmHg Ao max P.5 mmHg LV V1 VTI: 13.5 cm Ao mean P.7 mmHg LAYO(I,D): 1.4 cm2 Ao V2 VTI: 23.3 cm LAYO(V,D): 1.5 cm2 sev ratio: 0.58 LAYO indexed to BSA (cm^2/m^2): 0.90 MV E max edgar: 57.4 cm/sec TR max edgar: 227.8 cm/sec MV A max edgar: 78.0 cm/sec TR max P.8 mmHg MV E/A: 0.74 Med Peak E' Edgar: 3.8 cm/sec E/E' med: 15.1 Lat Peak E' Edgar: 9.7 cm/sec E/E' lat: 5.9 E/e' average: 10.5 MV dec time: 0.40 sec SV(LVOT): 33.4 ml Reading Physician:03:32 PM
[2022-05-08 16:00] VITALS: BP 139/78; PULSE 75; RESP 16; TEMP 36.9; O2SAT 98
[2022-05-08] MEDS: ACETAMINOPHEN 325 MG TABLET 650 MG PO (16:07)
--- NOTE | 2022-05-08 17:28 | CM.DPNOTE ---
Discharge Planning Note: PT evaluated patient today, recommend home with 24/7 assist which she has available to her with her daughter and son in law. Plan: Needs F2F and orders for HH if safe for home. [facility] has initial referral. Mayda Fitzgerald RN/DCP
[2022-05-08 21:00] VITALS: BP 130/63; PULSE 71; RESP 14; TEMP 36.5; O2SAT 95
[2022-05-09 05:00] VITALS: BP 140/70; PULSE 67; RESP 16; TEMP 36.3; O2SAT 95
[2022-05-09 08:20] VITALS: BP 154/85; PULSE 66; RESP 16; TEMP 36.2; O2SAT 98
[2022-05-09] MEDS: ASPIRIN 81 MG CHEW TAB PO (08:29)
[2022-05-09] MEDS: POTASSIUM CHLORIDE 20 MEQ TAB 40 MEQ PO (08:29)
[2022-05-09] MEDS: NYSTATIN SUSP 500,000 UNIT/5 ML UDC 500000 UNIT PO ×2 (08:29→19:59)
[2022-05-09] MEDS: levETIRAcetam 250 MG TABLET 500 MG PO ×2 (08:29→19:58)
[2022-05-09] MEDS: CIPROFLOXACIN 250 MG TABLET PO ×2 (08:29→19:57)
[2022-05-09] MEDS: ENOXAPARIN 40 MG/0.4 ML SYRINGE SUBCUT (08:29)
[2022-05-09] MEDS: FUROSEMIDE 20 MG TABLET PO (08:30)
[2022-05-09] MEDS: VERAPAMIL SR 120 MG TABLET 240 MG PO (08:30)
[2022-05-09] MEDS: CALCITONIN,SALMON, NASAL SPRAY 1 SPRAYS NASAL (08:31)
[2022-05-09 08:52] LABS: BUN Creatinine Ratio 35.4 (6-22); Blood Urea Nitrogen 35 mg/dL (7-17); Calcium 9.4 mg/dL (8.4-10.2); Carbon Dioxide 33 mmol/L (22-32); Chloride 104 mmol/L (98-107); Estimated Glomerular Filt Rate 57 mL/min (>60); Glucose 92 mg/dL (80-110); HEMOLYSIS 15 (0-50); Sodium 139 mmol/L (137-145)
[2022-05-09] MEDS: SODIUM CHLORIDE 0.9% 1,000 ML 100 ML IV ×2 (10:18→19:59)
--- NOTE | 2022-05-09 11:08 | PC.NURSE ---
Addendum entered by Luis Angel Peck R.N. 05/09/22 15:30: Pt resting comfortably. good urine output after Lasix via purewick. Pt sleeping presently facial features relaxed, rr even and unlaboured. Original Note: Pt sleeping throughout morning. does rouse and make requests known. IV fluids started per orders. PT in with Pt for some bed exercises. Had sip of OJ.
--- NOTE | 2022-05-09 11:27 | PT.IPTN ---
Current Diagnoses Urinary tract infection, site not specified (05/04/22) Physical Therapy Treatment Note M2 PT-IP Current Condition Start: 05/08/22 11:05 Freq: NEEDED Status: Active Protocol: Document 05/08/22 12:17 AW (Rec: 05/08/22 12:53 AW [id number]) Physical Therapy Current Condition Current Condition Evaluation Date 05/08/22 Treatment Diagnosis UTI, weakness, COVID (+); difficulty in walking Onset Date mid-April M3 PT-IP Subjective Start: 05/08/22 11:05 Freq: NEEDED Status: Active Protocol: Document 05/09/22 11:06 BC (Rec: 05/09/22 11:27 [id number]) Subjective Physical Therapy Visit Type Type Progress Note Visit Start Time 10:40 Visit Stop Time 11:00 Total Visit Minutes 15 Physical Therapy Visit Comments Patient Comments Asking for orange juice. M4 PT-IP Mobility and Gait Start: 05/08/22 11:05 Freq: NEEDED Status: Active Protocol: Document 05/09/22 11:06 BC (Rec: 05/09/22 11:27 [id number]) PT-Bed Mobility Assessment Rolling Type of Rolling Roll to Right Level of Assist Minimal Assistance Supine to Sit Supine to Sit Moderate Assistance,1 Person Assistance,Bedrails Sit to Supine Sit to Supine Moderate Assistance,1 Person Assistance Scooting Scooting to Edge of Bed Moderate Assistance Scooting Up and Down in Bed Dependent PT-Transfer Assessment Comments Mobility Comments Unable to tolerate sitting EOB longer than a few minutes. Unable to safely progress to standing or transfer training today. Gait Assessment Comments Gait Comments Unable to safely ambulate today PT-Balance Assessment Sitting Balance and Reactions Static Sitting Balance Ability Poor Dynamic Sitting Balance Ability Poor Comments Other Balance Tests/Deviations/Treatment Sitting balance and tolerance : was poor today. Tolerated sitting EOB for mere moments. She needed max assist to maintain sitting. Requesting to lie back down after taking a few sips from orange juice she had requested. M5 PT-IP Objective Assessments Start: 05/08/22 11:05 Freq: NEEDED Status: Active Protocol: Document 05/09/22 11:06 BC (Rec: 05/09/22 11:27 [id number]) Orientation Orientation/Cognition Level of Alertness Alert Orientation Name,Birthday M6 PT-IP Treatment Start: 05/08/22 11:05 Freq: NEEDED Status: Active Protocol: Document 05/09/22 11:06 (Rec: 05/09/22 11:27 [id number]) Physical Therapy Treatment Other Treatments Other Treatment Performed See above - bed mobility and sitting tasks. M7 PT-IP Assessment and Plan Start: 05/08/22 11:05 Freq: NEEDED Status: Active Protocol: Document 05/09/22 11:06 (Rec: 05/09/22 11:27 [id number]) PT Summary Assessment and Plan Potential Rehabilitation Potential Fair Status of Condition at Evaluation Evolving Summary Impairments Strength,Balance,Sensation, Cognition,Bed Mobility, Transfers,Gait,Activity Tolerance Progress Towards Goals Slow Progress due to Medical Issues Assessment Summary Nsng reports Pt has not eaten or drank much and likely will be very fatigued with PT session but cleared to attempt . Pt resting in bed. She initially did not want to participate with PT but wanted orange juice. Agreeable to sit EOB to drink. Needing mod assist to obtain sitting EOB after 3 attempts. Once seated able to maintain sitting with intermittent max assist while dynamically reaching and drinking her orange juice. Fatigued rapidly. Assisted back to bed with all needs in reach and bed alarm on. Pt appears to require more assist today with bed mobility and sitting tolerance. She was not able to stand or transfer safely due to fatigue. Cont to recommend 24hr support and ongoing IPPT. Goals Bed Mobility Goal Standby Assistance Transfer Goal Standby Assistance,Front Wheeled Walker Gait Goal Standby Assistance,Front Wheel Walker Gait Distance 75 Other Goals - improve transfers and gait to SBA with 4WW Days to Meet Goals 10 Frequency of Treatment Frequency Of Treatment Once a Day Treatment Plan Physical Therapy Treatment Plan Bed Mobility Training,Transfer Training,Gait Training, Therapeutic Exercise,Balance Retraining,Discharge Planning, Hot or Cold Pack,Neuromuscular Re-ed Other Recommendations and Next Treatment take FWW (none found in room Focus today); assess mobility with walker Unable to assess ambulation/ transfers 05/09/22 Recommendations To Nursing Amount of Assist Needed 1 Person Assist Discharge Recommendations PT Discharge Recommendations Home with 24/7 Assist Available,Home Health Transportation Needs at Discharge Private Vehicle
[2022-05-09 12:00] VITALS: BP 123/79; PULSE 85; RESP 16; TEMP 36.4; O2SAT 95
--- NOTE | 2022-05-09 16:50 | P.PN_ITS ---
Subjective Subjective Date Patient Seen: 05/09/22 Time Patient Seen: 14:00 Interval history: Patient denies having any needs. She is pleasantly confused. Exam Vital Signs (past 8 hours): - 05/08/22 16:00 Temperature 98.4 F Pulse Rate 75 Respiratory Rate 16 Blood Pressure 139/78 Pulse Oximetry 98 Oxygen Flow Rate 0 Oxygen Delivery Method Room Air Oxygen Flow Rate 0 Narrative Exam Narrative: Smiling lying in bed.? Appears to be in no acute medical distress. HEENT:? Pupils equal and reactive to light.? Head is normocephalic.? Trachea is midline.? Neck nodes are nontender and nonpalpable.? Thrush appears to be clearing. Cardiovascular:? Heart sounds S1 and S2 with no extra sounds or murmurs. Respiratory:? Air entry throughout the lung bustos no wheezes or crackles. Gastrointestinal:? Abdomen is soft.? Nontender.? Bowel sounds normal Musculoskeletal:? Able to move all extremities volitionally.? Very cachectic. Skin:? No lesions or rashes. Neuro:? Normal sensation of all extremities. Psych: Demented. Objective Labs Result Diagrams: 05/06/22 04:44 05/09/22 08:30 Labs: Laboratory Results - last 24 hr 05/08/22 05:00 Sodium 140 Potassium 3.7 Chloride 104 Carbon Dioxide 31 BUN 38 H Creatinine 1.16 H Estimated GFR 47 L BUN/Creatinine Ratio 32.8 H Glucose 105 Calcium 9.3 PFSH Medical History Asthma CVA (cerebral vascular accident) Essential hypertension Paroxysmal atrial fibrillation 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 (CVA) Vascular dementia Surgical History H/O: hysterectomy History of bilateral knee replacement History of ERCP Social History household members: children Smoking Status: Never smoker alcohol intake: never Assessment & Plan Assessment & Plan narrative: 1. Urinary tract infection, acute, was present on admission and resolved from prior admission on April 25 to . Urine positive culture for Proteus mirabilis.? Transitioned to oral Cipro. Dose completing on May 11. 2. Hypokalemia likely secondary to dehydration, resolved Her admitting potassium was 3.0 and was started on 40 mEq potassium replacement IV 1 time replacement.?Now stable at 4 with mag of 1.9. -Monitor 3. Anorexia unknown if intentional or involuntary Patient takes dronabinol 2.5 mg p.o. daily and had previously been on twice daily dosing to help with appetite.? 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 4. Acute on chronic heart failure unknown if with the a preserved or reduced ejection fraction Patient's proBNP was 3040 and patient was given IV Lasix 40 mg x 1 in the emergency department, will continue with 20 mg orally daily. Echo shows normal EF of 55-60% with mod mitral stenosis. 5. Seizure disorder, chronic She was given IV Keppra in the emergency department 500 mg, and on home Keppra 500 mg p.o. dosing. 6. 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 7. Essential hypertension, chronic She is normotensive to hypotensive.? Currently stable. Verapamil 240 mg p.o. daily 8. COVID positive.? Initial infection in mid April.? Appears to be asymptomatic other than significant fatigue.? Treated previously on admission in mid April with dexamethasone, remdesivir and baricitinib.? She subsequently improved and was discharged home without oxygen.? Follow clinically. 9. Concern for thrush.? Being treated with nystatin swish and swallow.? Patient reports that her mouth feels so much better and she is eating more.? 10. Decreased mobility. Physical therapy assessed the patient and will continue with treatment. Cleared for home with . VTE Prophylaxis: Wells risk score 1.5 X Enoxaparin 40 mg subQ once daily X Bilateral SCDs Patient is admitted to the inpatient service due to the severity of disease, risks of further disease progression. Dispo: D/c to home with HH on 05/10. Time Spent With Patient Critical Care time: I spent a total of [] minutes of critical care time on this patient's care today; this time is exclusive of procedural time. Quality VTE Deep Vein Thrombosis/Pulmonary Embolism Present on Admission: No
[2022-05-09 17:10] VITALS: BP 124/74; PULSE 74; RESP 17; TEMP 36.4; O2SAT 100
[2022-05-09 21:00] VITALS: BP 129/78; PULSE 76; RESP 14; TEMP 36.4; O2SAT 98
[2022-05-10] VITALS (7 sets, daily range): BP systolic 109–139; BP diastolic 40–76; PULSE 58–74; RESP 12–20; TEMP 36–36.5; O2SAT 95–100
[2022-05-10] MEDS: CIPROFLOXACIN 250 MG TABLET PO (06:30)
[2022-05-10] MEDS: POTASSIUM CHLORIDE 20 MEQ TAB 40 MEQ PO (08:57)
[2022-05-10] MEDS: levETIRAcetam 250 MG TABLET 500 MG PO ×2 (09:02→20:22)
[2022-05-10] MEDS: NYSTATIN SUSP 500,000 UNIT/5 ML UDC 500000 UNIT PO ×3 (09:02→20:22)
[2022-05-10] MEDS: ASPIRIN 81 MG CHEW TAB PO (09:02)
[2022-05-10] MEDS: VERAPAMIL SR 120 MG TABLET 240 MG PO (09:02)
[2022-05-10] MEDS: ENOXAPARIN 40 MG/0.4 ML SYRINGE SUBCUT (09:02)
[2022-05-10] MEDS: CALCITONIN,SALMON, NASAL SPRAY 1 SPRAYS NASAL (09:03)
--- NOTE | 2022-05-10 13:05 | DI.CT.S_ITS ---
PROCEDURE: CT HEAD/BRAIN WO CON INDICATIONS: acute encephalopathy TECHNIQUE: Noncontrast 4.5 mm thick angled axial sections acquired from the foramen magnum to the vertex, with coronal and sagittal reformats. For radiation dose reduction, the following was used: automated exposure control, adjustment of mA and/or kV according to patient size. COMPARISON: [facility], CT, CT HEAD/BRAIN WO CON, 08/17/2021, 12:53. FINDINGS: Image quality: Excellent. CSF spaces: Basal cisterns are patent. No extra-axial fluid collections. The ventricles are symmetric in size and shape. Brain: No intracranial bleeds or masses. There is cerebral volume loss for age, with resultant ventricular and sulcal prominence. There are periventricular and deep white matter chronic small vessel ischemic changes. There is intracranial internal carotid artery atherosclerosis. Skull and face: Calvarium and visualized facial bones appear intact, without suspicious lesions. Sinuses: Visualized sinuses and mastoids are clear. IMPRESSION: 1. Volume loss and small vessel ischemic disease. 2. No acute intracranial abnormality. Dictated by: Mary Solis M.D. on 05/10/2022 at 14:06 Approved by: Mary Solis M.D. on 05/10/2022 at 14:07
--- NOTE | 2022-05-10 13:15 | PT.IPTN ---
Current Diagnoses Urinary tract infection, site not specified (05/04/22) Physical Therapy Treatment Note M2 PT-IP Current Condition Start: 05/08/22 11:05 Freq: NEEDED Status: Active Protocol: Document 05/08/22 12:17 AW (Rec: 05/08/22 12:53 AW [id number]) Physical Therapy Current Condition Current Condition Evaluation Date 05/08/22 Treatment Diagnosis UTI, weakness, COVID (+); difficulty in walking Onset Date mid-April M3 PT-IP Subjective Start: 05/08/22 11:05 Freq: NEEDED Status: Active Protocol: Document 05/10/22 13:15 AW (Rec: 05/10/22 14:29 AW [id number]) Subjective Physical Therapy Visit Type Type Treatment Note Visit Start Time 12:48 Visit Stop Time 13:15 Total Visit Minutes 27 Physical Therapy Visit Comments Patient Comments My back is broken and my legs are broken, aren't they? M4 PT-IP Mobility and Gait Start: 05/08/22 11:05 Freq: NEEDED Status: Active Protocol: Document 05/10/22 13:15 AW (Rec: 05/10/22 14:29 AW [id number]) PT-Bed Mobility Assessment Supine to Sit Supine to Sit Moderate Assistance,1 Person Assistance,Bedrails Sit to Supine Sit to Supine Moderate Assistance,1 Person Assistance Scooting Scooting to Edge of Bed Moderate Assistance Scooting Up and Down in Bed Dependent PT-Transfer Assessment Sit to and From Stand Sit to and from Stand Moderate Assistance,Maximum Assistance,1 Person Assistance Equipment Transfer Assistive Device Gait Belt,Front Wheeled Walker Transfers Transfer Technique sit <> stand Comments Mobility Comments RN reports pt has been only minimally responsive and alert . PT finds her in bed, willing to sit up. Mod assist required for all bed mobility. Pt was able to sit EOB for several minutes in between standing attempts. Pt needed FWW and max A to stand on all three trials. Pt was unable to shift weight meaningfully in standing. She requested returrn to supine. Pt was left with call light and tray table in reach. Gait Assessment Comments Gait Comments Unable to safely ambulate today PT-Balance Assessment Sitting Balance and Reactions Static Sitting Balance Ability Poor Dynamic Sitting Balance Ability Poor Standing Balance and Reactions Static Standing Balance Ability Poor Dynamic Standing Balance Ability Poor Device Used FWW M5 PT-IP Objective Assessments Start: 05/08/22 11:05 Freq: NEEDED Status: Active Protocol: Document 05/09/22 11:06 BC (Rec: 05/09/22 11:27 BC [id number]) Orientation Orientation/Cognition Level of Alertness Alert Orientation Name,Birthday M6 PT-IP Treatment Start: 05/08/22 11:05 Freq: NEEDED Status: Active Protocol: Document 05/10/22 13:15 AW (Rec: 05/10/22 14:30 AW [id number]) Physical Therapy Treatment Education Education Provided Safety Other Treatments Other Treatment Performed Bed mobility and sit to stand as noted above. M7 PT-IP Assessment and Plan Start: 05/08/22 11:05 Freq: NEEDED Status: Active Protocol: Document 05/10/22 13:15 AW (Rec: 05/10/22 14:29 AW [id number]) PT Summary Assessment and Plan Potential Rehabilitation Potential Fair Status of Condition at Evaluation Evolving Summary Impairments Strength,Balance,Sensation, Cognition,Bed Mobility, Transfers,Gait,Activity Tolerance Progress Towards Goals Slow Progress due to Medical Issues Assessment Summary Nursing continues to report pt is not taking much orally and has been waning in alertness. Noted pt was taken downstairs for head CT after PT session. Pt continued to require mod/ max assist for sitting EOB and attempts to stand with FWW. She is unsafe for gait at this time. Cont to recommend 24hr support and ongoing IPPT. If pt goes home, she will need equipment to include wheelchair and hospital bed. Goals Bed Mobility Goal Standby Assistance Transfer Goal Standby Assistance,Front Wheeled Walker Gait Goal Standby Assistance,Front Wheel Walker Gait Distance 75 Other Goals - improve transfers and gait to SBA with 4WW Days to Meet Goals 10 Frequency of Treatment Frequency Of Treatment Once a Day Treatment Plan Physical Therapy Treatment Plan Bed Mobility Training,Transfer Training,Gait Training, Therapeutic Exercise,Balance Retraining,Discharge Planning, Hot or Cold Pack,Neuromuscular Re-ed Other Recommendations and Next Treatment assess mobility with FWW (in Focus room) and progress as able Precautions Other Precautions falls risk; COVID (+) Recommendations To Nursing Amount of Assist Needed 2 Person Assist Discharge Recommendations PT Discharge Recommendations Home with 24/7 Assist Available,Home Health Equipment Needed for Home Before w/c, hospital bed Discharge Transportation Needs at Discharge Wheelchair/Cabulance,Stretcher /Ambulance
[2022-05-10 13:21] LABS: Add Manual Diff / Slide Review NO; Basophils Absolute Auto 0 /uL (0-100); Basophils Percent Auto 0.6 % (0-2); Eosinophils Absolute Auto 100 /uL (0-450); Hematocrit 38.9 % (36-46); Lymphocytes Absolute Auto 2400 /uL (1100-4500); Mean Corpuscular HGB Conc 33.3 % (30-36); Mean Corpuscular Hemoglobin 28.8 PG (26-34); Mean Corpuscular Volume 86.4 fL (80-100); Monocytes Absolute Auto 600 /uL (0-900); Monocytes Percent Auto 7.8 % (3-14); Neutrophils Absolute Auto 4200 /uL (1500-7000); Neutrophils Percent Auto 56.6 % (50-75); Platelet Count 298 X10^3/uL (150-400); Red Cell Distribution Width 15.1 % (11.6-14.8); White Blood Cell Count 7.3 X10^3/uL (4.5-11.0)
[2022-05-10 13:33] LABS: Alanine Aminotransferase 13 IU/L (<35); Albumin 3.7 g/dL (3.5-5.0); Alkaline Phosphatase 77 U/L (38-126); Aspartate Aminotransferase 22 IU/L (14-36); BUN Creatinine Ratio 28.7 (6-22); Bilirubin Total 0.9 mg/dL (0.2-1.3); Blood Urea Nitrogen 31 mg/dL (7-17); Calcium 9.4 mg/dL (8.4-10.2); Carbon Dioxide 32 mmol/L (22-32); Chloride 105 mmol/L (98-107); Estimated Glomerular Filt Rate 52 mL/min (>60); Globulin 3.7 g/dL (1.7-4.1); Glucose 104 mg/dL (80-110); HEMOLYSIS < 15 (0-50); Potassium 4.2 mmol/L (3.4-5.1); Sodium 141 mmol/L (137-145); Total Protein 7.4 g/dL (6.3-8.2)
--- NOTE | 2022-05-10 14:48 | CM.DANOTE ---
Addendum entered by Clara Zavala R.N. 05/10/22 15:17: Per Renata, patient's caseworker, called [facility] and spoke to nurse licensed vocational nurse for the week-end, Eugenia. Updated her on this patient and that patient is expected to discharge tomorrow, and will need equipment delivered as soon as possible. Renata has already faxed over the referral. Clara Zavala, RN/Health Tech Original Note: DCP/continued: Reviewed chart. Patient admitted on 05/04/22 with weakness/confusion. PCP is Nasreen Najera. Primary payor is 1)Medicare 2) [employer] Life. Reviewed case with Dr. Jonse in AM rounds. Per provider patient medically stable for d/c within the next 24hrs. Dr. Jones called daughter to update plan. Daughter requesting additional labs and CT due to patient's lack of responsiveness to treatment. Daughter reports patient can usually ambulate in residence prior to admit. DIRECTOR OF GLOBAL MARKETING spoke with daughter/Kayla whom reports that she plans to take patient home when medically stable. Daughter spoke with Dr. Jones and current plan is if patient shows no improvement with mobility she would like patient home on hospice. Daughter provided with hospice agency choices and [facility] first choice and second [facility] . DIRECTOR OF GLOBAL MARKETING faxed referral [facility] fax# [phone]. Daughter reports that patient will need hospital bed at residence. Patient's daughter resides in [place] but is in [place]. to help facilitate long-term plan. If hospice appropriate family would first like that as choice secondary would be home with HH ([facility]). Referral will need to be made and F2F completed. P: Anticipate home on 05-11-22 with hospice. [facility] choice and they have been faxed referral. SHELLY Discharge Planning/Care Management CM Discharge Assessment Start: 05/10/22 14:23 Freq: Status: Active Protocol: Document 05/10/22 14:23 SHELLY (Rec: 05/10/22 14:48 SHELLY [id number]) Discharge Planning Assessment Assigned Staking Technician STONEY Meza Contact Information Kayla Mortensen # [phone] Advance Directives? Yes Advance Directives on File No History Provided By Family Member,Medical Record Prior Living Arrangements House Household Members children Type of transporation used prior to Relies on Others admit Independent with ADL's No Is patient alert and oriented? No Caregiver for Another No Comment Covid + Patient/Family Preference Home with Home Health Comment Home with HH vs. Hospice? [facility] chose and referral faxed this afternoon. In addition placed call to [facility]: availibility ? At this time Sandy at [facility] unsure? Therefore, will continue to follow up with [facility] . Barriers to Discharge No Comment Per daughter if no improvement over night family wants patient home with hospice. Daughter reports that she will provide care (she is RN). Discharge Plan Home Referrals Initiated Other Additional Comment Hospice referral made Review Status In Process Next Review Type Continued Stay Review
--- NOTE | 2022-05-10 15:03 | PC.NURSE ---
shift- Notified Dr. Jones that pt has no IV access; he states, ok to have no IV access.
[2022-05-10] MEDS: ACETAMINOPHEN 325 MG TABLET 650 MG PO (15:48)
[2022-05-10 15:57] LABS: Levetiracetam Keppra 38.2 ug/mL (10.0-40.0)
--- NOTE | 2022-05-10 17:19 | PM.PN.1 ---
Subjective Subjective Date Patient Seen: 05/10/22 Time Patient Seen: 15:00 Interval history: Patient sleeping but awaken briefly and falls asleep again. No complaints. Exam Vital Signs (past 8 hours): - 05/10/22 12:00 05/10/22 14:22 05/10/22 16:29 Temperature 97.5 F L 97.1 F L 97.5 F L Pulse Rate 61 62 74 Respiratory Rate 16 18 16 Blood Pressure 113/40 L 125/58 L 113/75 Pulse Oximetry 98 99 99 Oxygen Flow Rate 0 0 Oxygen Delivery Method Room Air Oxygen Flow Rate 0 Narrative Exam Narrative: GEN: Somnolent. HEENT:? Pupils equal and reactive to light.? Head is normocephalic.? Trachea is midline.? Neck nodes are nontender and nonpalpable.? Thrush appears to be clearing. Cardiovascular:? Heart sounds S1 and S2 with no extra sounds or murmurs. Respiratory:? Air entry throughout the lung bustos no wheezes or crackles. Gastrointestinal:? Abdomen is soft.? Nontender.? Bowel sounds normal Musculoskeletal:? Able to move all extremities volitionally.? Very cachectic. Skin:? No lesions or rashes. Neuro:? Normal sensation of all extremities. Psych: Demented and somnolent. Objective Labs Result Diagrams: 05/10/22 13:15 05/10/22 13:15 Labs: Laboratory Results - last 24 hr 05/04/22 05/10/22 05/10/22 22:15 13:15 13:15 WBC 7.3 RBC 4.50 Hgb 13.0 Hct 38.9 MCV 86.4 MCH 28.8 MCHC 33.3 RDW 15.1 H Plt Count 298 Neut % (Auto) 56.6 Lymph % (Auto) 33.0 Johnson % (Auto) 7.8 Eos % (Auto) 2.0 Baso % (Auto) 0.6 Neut # (Auto) 4200 Lymph # (Auto) 2400 Johnson # (Auto) 600 Eos # (Auto) 100 Baso # (Auto) 0 Sodium 141 Potassium 4.2 Chloride 105 Carbon Dioxide 32 BUN 31 H Creatinine 1.08 H Estimated GFR 52 L BUN/Creatinine Ratio 28.7 H Glucose 104 Calcium 9.4 Total Bilirubin 0.9 AST 22 ALT 13 Alkaline Phosphatase 77 Total Protein 7.4 Albumin 3.7 Globulin 3.7 Albumin/Globulin Ratio 1.0 Levetiracetam 38.2 [facility] Medical History Asthma CVA (cerebral vascular accident) Essential hypertension Paroxysmal atrial fibrillation 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 (CVA) Vascular dementia Surgical History H/O: hysterectomy History of bilateral knee replacement History of ERCP Social History household members: children Smoking Status: Never smoker alcohol intake: never Assessment & Plan Assessment & Plan narrative: # Acute encephalopathy, not present on admission Patient very somnolent. Not on any offending medications. Labs are all WNL. EKG and head CT normal. Unclear if delirium from not sleeping at night. Will wake up then fall back asleep. # Urinary tract infection, acute, was present on admission and resolved from prior admission on April 25 to . Urine positive culture for Proteus mirabilis.? Finished course of oral cipro. # Hypokalemia likely secondary to dehydration, resolved Her admitting potassium was 3.0 and was started on 40 mEq potassium replacement IV 1 time replacement.?Now stable at 4 with mag of 1.9. -Monitor # Anorexia unknown if intentional or involuntary Patient takes dronabinol 2.5 mg p.o. daily and had previously been on twice daily dosing to help with appetite.? YACHT BUILDER has assessed swallowing and patient is good with dysphagia mechanical diet. Dronabinol held due to somnolence. # Acute on chronic heart failure unknown if with the a preserved or reduced ejection fraction Patient's proBNP was 3040 and patient was given IV Lasix 40 mg x 1 in the emergency department, will continue with 20 mg orally daily. Echo shows normal EF of 55-60% with mod mitral stenosis. # Seizure disorder, chronic She was given IV Keppra in the emergency department 500 mg, and on home Keppra 500 mg p.o. dosing. # Vascular dementia secondary to a CVA, chronic Had speech evaluate her swallowing ability and diet is dysphagia mechanical with thin fluid. # Essential hypertension, chronic She is normotensive to hypotensive.? Currently stable. Verapamil 240 mg p.o. daily # COVID positive.? Initial infection in mid April.? Appears to be asymptomatic other than significant fatigue.? Treated previously on admission in mid April with dexamethasone, remdesivir and baricitinib.? She subsequently improved and was discharged home without oxygen.? Follow clinically. # Concern for thrush.? Being treated with nystatin swish and swallow.? Patient reports that her mouth feels so much better and she is eating more.? # Decreased mobility. Physical therapy assessed the patient and will continue with treatment. Cleared for home with . VTE Prophylaxis: Wells risk score 1.5 X Enoxaparin 40 mg subQ once daily X Bilateral SCDs Patient is admitted to the inpatient service due to the severity of disease, risks of further disease progression. Dispo: D/c to home on 05/11. Time Spent With Patient Critical Care time: I spent a total of [] minutes of critical care time on this patient's care today; this time is exclusive of procedural time. Quality VTE Deep Vein Thrombosis/Pulmonary Embolism Present on Admission: No
--- NOTE | 2022-05-10 18:18 | PC.NURSE ---
Day shift; Notified Dr. Jones that pt is refusing meals, drinking only a few sips of water, and no urination today. No new orders given. Educated pt about hydration and nutrition.
[2022-05-11] VITALS: BP 123/71; PULSE 60; RESP 15; TEMP 35.8; O2SAT 92
[2022-05-11] MEDS: ACETAMINOPHEN 325 MG TABLET 650 MG PO (00:31)
[2022-05-11 04:52] VITALS: BP 103/61; PULSE 61; RESP 16; TEMP 36.1; O2SAT 98
[2022-05-11 08:00] VITALS: BP 122/72; PULSE 58; RESP 14; TEMP 36.2; O2SAT 95
--- NOTE | 2022-05-11 10:24 | PT-IP ANOTE ---
Per hospitalist physician, pt has elected hospice. PT to discharge therapy orders at this time.
[2022-05-11] MEDS: levETIRAcetam 250 MG TABLET 500 MG PO (10:28)
[2022-05-11] MEDS: ENOXAPARIN 40 MG/0.4 ML SYRINGE SUBCUT (10:29)
[2022-05-11] MEDS: ASPIRIN 81 MG CHEW TAB PO (10:29)
[2022-05-11] MEDS: NYSTATIN SUSP 500,000 UNIT/5 ML UDC 500000 UNIT PO (10:29)
[2022-05-11] MEDS: POTASSIUM CHLORIDE 20 MEQ TAB 40 MEQ PO (10:33)
[2022-05-11] MEDS: VERAPAMIL SR 120 MG TABLET 240 MG PO (10:33)
[2022-05-11] MEDS: CALCITONIN,SALMON, NASAL SPRAY 1 SPRAYS NASAL (10:34)
--- NOTE | 2022-05-11 10:57 | CM.DPC ---
DCP Discharge Home with Hospice Per MD, pt medically stable to d/c home today and appropriate for Hospice as pt has not improved and continues to be lethargic and obtunded. ARLENE called [facility] and confirmed they have referral from this weekend, reviewed, called Dtr and confirmed plan of their mercury washer to open pt to service today at 1600 and bed to be delivered tomorrow 05/12/22 and Dtr agreeable with this plan. SW called Dtr and confirmed above and she states she is home and feels BLS needed as pt unable to safely remain awake and not very responsive and Dtr will be home and available for any time of transport needed. ARLENE discussed the POLST and Dtr confirms pt is DNR/DNI and comfort measures only and provided verbal signature on POLST as pt not able to sign and Dtr had also talked with MD regarding POLST information. POLST and BLS form completed for transport today. EVER Chelsey kindly set up transport via [facility] for 1300 today. ARLENE called Dtr back and updated and very appreciative and then updated dress finisher, ABEL, and RN and MD. ARLENE faxed d/c summary and POLST to [facility] to review. Plan: Patient to d/c home via [facility] at [address] [facility] to open at 1600 today. STONEY Mondragon
--- NOTE | 2022-05-11 11:05 | CM.DPNOTE ---
Called for bls transport per Nadine and spoke to Dennys at [facility]. They will pick pt. up at 1300. Chelsey Loepz CM Assist.
--- NOTE | 2022-05-11 13:54 | PC.NURSE ---
Discharge Note Patient A&O to baseline, VSS, RA, no complaints of pain/discomfort. Discharge plan reviewed with patient and daughter, both agreeable to discharge plan. Patient dressed/brief changed by HEARINGS REPORTER and this RN. All belongings packed and given to transport team, along with discharge packet. Daughter aware of discharge plan for home with hospice. Patient taken by transport team, report given and all questions/concerns addressed.
--- NOTE | 2022-05-11 16:17 | PM.DS.1 ---
History of Present Illness History of Present Illness Date Patient Seen: 05/11/22 Time Patient Seen: 11:00 Chief complaint: Weakness/ Confusion Narrative: Rose Mary Bello is 82-year-old woman with a history of vascular dementia, prior strokes with subsequent Pelzer mal seizure, hypertension and atrial fibrillation on aspirin with COVID diagnosis on April 24.? She was admitted on April 25 and discharged on April 28 treated with dexamethasone, remdesivir and baricitinib.? She subsequently improved and was discharged home without oxygen.? Patient is unable to provide a history as it is both difficult to hear her due to having weak voice and I am not sure what she is telling me makes any sense.? History is obtained from her daughter Kayla Mortensen, notes from the emergency department provider as well as sign-out. She did well for the first 3 days but over the last 3 days has gotten increasingly weak to the point that she is unable to get out of bed.? Daughter stated on Wednesday, she was assisting her returning from the bathroom to her bedroom when she collapsed but caught her.? She did not see her mother's expression so she is not aware of the patient had a seizure or was just weak.? She was and is incontinent of both urine and stool which is very unusual for her, she has not been interested in eating or drinking and her daughter, her primary caregiver, describes tbsp of liquid cough mediucine only over the last 2 days.? Daughter states she has not been able to keep any of her seizure medications in.? She stated to the ED provider that she is worried that with the worsening weakness that she no longer is able to provide appropriate care to keep her mother safe at home.? Both the daughter and son-in-law live out of state but have been keeping the patient at a summer home in [place] because it is more accessible for her.? It sounds like they are in the process of renovating their own home in [place] to make it more accessible and closer for them to monitor her.? Patient's daughter is a retired ER nurse.? In reviewing prior notes, she failed a swallow evaluation with recent hospital evaluation concerning for aspiration and recommended dysphasia mechanical with thin liquids.? Patient is DNR/DNI with limited intervention and this was confirmed with her daughter who is also her POA.? Patient is day 10 of her COVID positivity. Family history is unavailable as the patient was adopted by her uncle and aunt in law and never had any contact with her biological mother. In the emergency department chest x-ray was negative for any acute cardiopulmonary process.? She is afebrile, blood pressure 103/57, heart rate 53, respiratory rate 16, oxygen saturation of 96% on room air she weighs 159.4 kg with a BMI of 19.5.? White count is unremarkable, potassium is low at 3.0 creatinine is 0.99 with an EGFR of 57 BUN is 23 calcium is 8.3 corrected to 9.1 within normal limits proBNP is 3040 albumin is low at 3.0 procalcitonin is 0.8, urinalysis is grossly positive for a UTI and will be cultured, and as stated before COVID-19 PCR is positive. Discharge Providers Provider Date of admission: 05/04/22 23:49 Discharge Date: 05/11/22 Primary care physician: Nasreen Najera DO Consults: 05/05/22 02:55 Consult to Speech Therapy Evaluate & Treat Comment: Swallow evaluation Physician Instructions: Evaluate and treat 05/06/22 13:10 Consult to Dietitian, Adult Routine Comment: Reason For Exam: Hypokalemia 05/06/22 16:19 Consult to Dietitian, Adult Routine Comment: Reason For Exam: poor food intake 05/08/22 10:32 Consult to Physical Therapy Evaluate & Treat Comment: Assess readiness for discharge. Physician Instructions: Evaluate and Treat Discharge provider: Anthony Jones DO Summary Hospital Course Discharge Diagnosis: Goals of care: Patient's daughter elected to discharge home on hospice given mother's declining mentation, lack of po intake and weight loss. 1. Urinary tract infection, acute, was present on admission and resolved from prior admission on April 25 to . Urine positive culture for Proteus mirabilis.? Transitioned to oral Cipro.? Dose completing on May 11. 2. Hypokalemia likely secondary to dehydration, resolved Her admitting potassium was 3.0 and was started on 40 mEq potassium replacement IV 1 time replacement.?Now stable at 4 with mag of 1.9. -Monitor 3. Anorexia unknown if intentional or involuntary Patient takes dronabinol 2.5 mg p.o. daily and had previously been on twice daily dosing to help with appetite.? RUG CLEANER HELPER has assessed swallowing and patient is good with dysphagia mechanical diet. 4. Acute on chronic heart failure unknown if with the a preserved or reduced ejection fraction Patient's proBNP was 3040 and patient was given IV Lasix 40 mg x 1 in the emergency department, will continue with 20 mg orally daily.? Echo shows normal EF of 55-60% with mod mitral stenosis. 5. Seizure disorder, chronic She was given IV Keppra in the emergency department 500 mg, and on home Keppra 500 mg p.o. dosing. 6. 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 7. Essential hypertension, chronic She is normotensive to hypotensive.? Currently stable. Verapamil 240 mg p.o. daily 8. COVID positive.? Initial infection in mid April.? Appears to be asymptomatic other than significant fatigue.? Treated previously on admission in mid April with dexamethasone, remdesivir and baricitinib.? She subsequently improved and was discharged home without oxygen.? Follow clinically. 9. Concern for thrush.? Being treated with nystatin swish and swallow.? Patient reports that her mouth feels so much better and she is eating more.? 10. Decreased mobility.? Physical therapy assessed the patient and will continue with treatment. Cleared for home with . Hospital Course: Patient admitted for UTI causing delirium. This was treating with abx but patient's mentation did not improve significantly. She slept almost all the time and ate and drank very little. Patient's daughter Kayla was talked with about hospice given her age and no apparent reason for her declining mentation. She agreed hospice was best so patient discharged to home hospice on 05/11. Exam Vital Signs (past 8 hours): - 05/10/22 01:00 05/10/22 05:00 05/10/22 08:13 Temperature 97.3 F L 96.8 F L Pulse Rate 67 58 L 64 Respiratory Rate 14 12 20 Blood Pressure 139/76 132/76 Pulse Oximetry 96 95 100 Oxygen Flow Rate 0 0 0 Oxygen Delivery Method Room Air Oxygen Flow Rate 0 Narrative Exam Narrative: Somnolent.? Appears to be in no acute medical distress. HEENT:? Pupils equal and reactive to light.? Head is normocephalic.? Trachea is midline.? Neck nodes are nontender and nonpalpable.? Thrush appears to be clearing. Cardiovascular:? Heart sounds S1 and S2 with no extra sounds or murmurs. Respiratory:? Air entry throughout the lung bustos no wheezes or crackles. Gastrointestinal:? Abdomen is soft.? Nontender.? Bowel sounds normal Musculoskeletal:? Able to move all extremities volitionally.? Very cachectic. Skin:? No lesions or rashes. Neuro:? Normal sensation of all extremities. Psych: Demented. Objective Labs Result Diagrams: 05/10/22 13:15 05/10/22 13:15 Labs: Laboratory Results - last 24 hr 05/09/22 08:30 Sodium 139 Potassium 4.0 Chloride 104 Carbon Dioxide 33 H BUN 35 H Creatinine 0.99 Estimated GFR 57 L BUN/Creatinine Ratio 35.4 H Glucose 92 Calcium 9.4 PFSH Medical History Asthma CVA (cerebral vascular accident) Essential hypertension Paroxysmal atrial fibrillation 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 (CVA) Vascular dementia Surgical History H/O: hysterectomy History of bilateral knee replacement History of ERCP Social History household members: children Smoking Status: Never smoker alcohol intake: never Discharge Plan Discharge Plan Patient Disposition: Hospice - Home Transfer to: [facility] Discharge orders & Medications Prescriptions: Continued albuterol sulfate 90 mcg/actuation HFA aerosol inhaler 2 puff INHALATION DAILY PRN (Reason: Shortness Of Breath Or Wheezing) ondansetron 4 mg tablet,disintegrating 4 mg translingual Q8H PRN (Reason: Nausea) lidocaine 5 % adhesive patch,medicated 1 patch transdermal BID PRN (Reason: Pain (Scale Score 4-6)) Rx Instructions: on for 12 hours and off for 12 hours dronabinol 2.5 mg capsule 2.5 mg PO DAILY verapamil 240 mg tablet extended release 240 mg PO DAILY levetiracetam 250 mg tablet 500 mg PO BID Discontinued dexamethasone 6 mg tablet 6 mg PO DAILY Qty: 3 0RF aspirin 81 mg Tablet 81 mg PO DAILY calcitonin (salmon) 200 unit/actuation spray,non-aerosol 1 spray intranasal DAILY Follow up/Referrals: Nasreen Najera DO [Primary Care Provider] - Discharge Data Primary Care Provider: Nasreen Najera VTE Deep Vein Thrombosis/Pulmonary Embolism Present on Admission: No
== END 2022-05-11 13:30 | disposition hospice, home (50) | DRG 689 ==
LOC: ED 22:20 → AC 23:49
PROVIDERS: Neuromusculoskeletal Medicine, Sports Medicine; Student in an Organized Health Care Education/Training Program; Admitting Provider Nurse Practitioner Family; Emergency Provider Emergency Medicine; PCP Internal Medicine; Referring Provider Emergency Medicine; Visit Provider Nurse Practitioner Family
DX: N39.0 Urinary tract infection, site not specified (principal); U07.1 COVID-19; E43 Unspecified severe protein-calorie malnutrition; B37.0 Candidal stomatitis; G93.40 Encephalopathy, unspecified; I11.0 Hypertensive heart disease with heart failure; I50.9 Heart failure, unspecified; E87.6 Hypokalemia; I48.0 Paroxysmal atrial fibrillation; F50.89 Other specified eating disorder; E86.0 Dehydration; G40.909 Epilepsy, unspecified, not intractable, without status epilepticus; I69.818 Other symptoms and signs involving cognitive functions following other cerebrovascular disease; F01.50 Vascular dementia, unspecified severity, without behavioral disturbance, psychotic disturbance, mood disturbance, and anxiety; J45.909 Unspecified asthma, uncomplicated; Z68.24 Body mass index [BMI] 24.0-24.9, adult; Z66 Do not resuscitate
CPT/HCPCS: 36415; 36592; 51701; 70450; 71045; 80048; 80053; 80177; 81001; 83735; 83880; 84145; 85025; 87077; 87086; 87186; 87635; 92610; 93005; 93306; 96365; 96366; 96367; 96375; 97163; 97530; 99283; 99284; C9803; J0696; J1650; J1940; J1953; J2543